=== PATIENT | female | born 1985 | race Caucasian/White ===

== ENCOUNTER 2021-10-29 08:58 | Emergency (ER) | payer BC, SELFPAY ==
[2021-10-29 09:33] VITALS: BP 99/62; PULSE 77; RESP 14; TEMP 36.2; O2SAT 98; BMI 27.9
--- NOTE | 2021-10-29 09:42 | PC.NURSE ---
DESTINY nurse paged
--- NOTE | 2021-10-29 11:06 | ED.NURSE ---
DESTINY nurse arrived and is in room w/ pt.
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
== END 2021-10-29 13:24 ==
PROVIDERS: Emergency Provider Family Medicine
DX: T74.21XA Adult sexual abuse, confirmed, initial encounter (principal)
CPT/HCPCS: 99281; 99284

== ENCOUNTER 2022-03-30 17:11 | Emergency (ER) | payer BC, SELFPAY ==
[2022-03-30 18:58] VITALS: BP 112/73; PULSE 87; RESP 18; TEMP 36.4; O2SAT 99; BMI 31.9
--- NOTE | 2022-03-30 19:54 | ED.BACK ---
HPI - Back Pain/Injury General Chief Complaint: Back Injury/Pain Stated Complaint: back pain Time Seen by Provider: 03/30/22 19:53 History of Present Illness HPI Narrative: This 36-year-old female comes in reporting low back pain radiating down both legs. She states that she has had a long history of back pain but the pain has become decided the worse recently. She does not report any particular injury event or strenuous activity. She has pain in her low back and this radiates down both legs. Related Data Previous Rx's Medication Instructions Recorded doxycycline hyclate 100 mg capsule 100 mg PO BID 10 days #20 caps 01/08/22 methylprednisolone 4 mg tablets in See Rx Instructions PO .COMPLEX 03/30/22 a dose pack (Medrol (Obed)) #21 ea tizanidine 4 mg capsule (Zanaflex) 4 mg PO TID PRN muscle spasticity 03/30/22 #20 caps Allergies Allergy/AdvReac Type Severity Reaction Status Date / Time No Known Drug Allergies Allergy Verified 03/30/22 19:03 Review of Systems Status of ROS: Reports: 10 or more systems reviewed and unremarkable except as noted in History and below Narrative: Constitutional: No fevers, no weight gain or loss. Eyes: No discharge. No vision changes. HENT: No congestion, no sore throat, no ear pain. Cardiovascular: No chest pain, no palpitations. Respiratory: No shortness of breath, no wheezes, no cough. Gastrointestinal: No abdominal pain, no vomiting, no diarrhea. Genitourinary: No dysuria, no hematuria. Musculoskeletal: Normal range of motion. Low back pain as described above. Skin: No rashes, no pruritis. Neurological: No dizziness, weakness, sensory change, speech change. Endo/Heme/Allergies: No bruising or bleeding. No polydipsia. Pysch: no suicidality, no anxiety, no insomnia. All other systems reviewed and are negative. PFSH PFSH Social History Smoking Status: Former smoker Do you use any of these nicotine containing products: None Second hand tobacco smoke exposure: No How often do you have a drink containing alcohol: monthly or less How many standard drinks containing alcohol do you have on a typical day: 1 or 2 How often do you have six or more drinks on one occasion: Never AUDIT-C Alcohol total score: 1 Non-prescribed substance use: denies use service: No Exam Narrative: Exam Narrative: Constitutional: Well-developed, well-nourished, no acute distress. HEENT: Normocephalic, atraumatic. Neck: Normal range of motion. Nontender. Supple. Heart: Intact distal pulses. Lungs: No chest discomfort. No wheezes, rhonchi, or rales. Abdomen: Nontender. Back: Normal range of motion. Pain is localized in the lower back. Straight leg raise is positive bilaterally. Extremities: Normal range of motion. No injury. Skin: Intact. No rash. Warm. No erythema or pallor. Neurologic: No altered sensation. No weakness. Alert and oriented. Psychiatric: No suicidality. No anxiety or depression. No insomnia. Nursing notes and vitals signs are reviewed. Const: Vital Signs, click to edit/add: Vital Signs - 24 hr 03/30/22 18:58 Temperature 97.5 F L Pulse Rate [Right Pulse Oximeter] 87 Respiratory Rate 18 Blood Pressure [Ri ght Upper Arm] 112/73 Pulse Oximetry 99 Oxygen Delivery Me thod Room Air Course Vital Signs Vital signs: Initial Vital Signs Temperature 97.5 F L 03/30/22 18:58 Temperature Source Temporal Artery Scan 03/30/22 18:58 Pulse Rate 87 03/30/22 18:58 Respiratory Rate 18 03/30/22 18:58 Blood Pressure 112/73 03/30/22 18:58 Blood Pressure Mean 86 03/30/22 18:58 Blood Pressure Position Sitting 03/30/22 18:58 Pulse Oximetry 99 03/30/22 18:58 Oxygen Delivery Method 03/30/22 18:58 Vital Signs Temperature 97.5 F L 03/30/22 18:58 Pulse Rate 87 03/30/22 18:58 Respiratory Rate 18 03/30/22 18:58 Blood Pressure 112/73 03/30/22 18:58 Pulse Oximetry 99 03/30/22 18:58 Oxygen Delivery Method 03/30/22 18:58 Temperature 97.5 F L 03/30/22 18:58 Pulse Rate 87 03/30/22 18:58 Respiratory Rate 18 03/30/22 18:58 Blood Pressure 112/73 03/30/22 18:58 Pulse Oximetry 99 03/30/22 18:58 Oxygen Delivery Method 03/30/22 18:58 MDM - Back Pain/Injury MDM Narrative Medical decision making narrative: This 36-year-old female comes in with low back pain that radiates down her legs. She does have positive straight leg raise bilaterally suggesting lumbar radiculopathy. There was no recent injury event or strenuous activity that indicate need at this time for imaging studies. If not improved she may need MRI imaging. She did received prescription for [place], Zanaflex, and Medrol Dosepak. I advised her to follow-up with the spine clinic here for further evaluation and treatment. Discharge Plan Discharge Clinical Impression: Lumbar radiculopathy Patient Disposition: Home, Self-Care Condition: Stable Additional Instructions: Take medications as needed and indicated. Follow up with Spine Clinic for further evaluation and treatment. Call [phone] for appointment. Return if worsening. Prescriptions: New methylprednisolone [Medrol (Obed)] 4 mg tablets,dose pack See Rx Instructions .ROUTE .COMPLEX Qty: 21 0RF Rx Instructions: orally per package directions tizanidine [Zanaflex] 4 mg capsule 4 mg PO TID PRN (Reason: muscle spasticity) Qty: 20 0RF No Action doxycycline hyclate 100 mg capsule 100 mg PO BID 10 Days Qty: 20 0RF Follow Up/Referrals: Provider,Not a Local [Primary Care Provider] - Stand Alone Forms: [facility] Info Instructions
== END 2022-03-30 20:14 | disposition home or self-care (01) ==
LOC: ED 20:13
PROVIDERS: Emergency Provider Emergency Medicine Emergency Medical Services
DX: M54.16 Radiculopathy, lumbar region (principal)
CPT/HCPCS: 99283; 99284

== ENCOUNTER 2023-02-12 22:21 | Emergency (ER) | payer BC, SELFPAY ==
[2023-02-12 22:34] VITALS: BP 142/80; PULSE 99; RESP 18; TEMP 37.3; O2SAT 98; BMI 37.0
--- NOTE | 2023-02-12 22:41 | ED.ABDPAIN ---
HPI - Abdominal Pain General Time Seen by Provider: 22:41 <Frances Be MD - Last Filed: 02/12/23 23:42> Date Seen: 02/12/23 <Frances Be MD - Last Filed: 02/12/23 23:42> Chief Complaint: Abdominal Pain <Frances Be MD - Last Filed: 02/12/23 23:42> Stated Complaint: Sharp Pain where her fallopian tube are - L Side <Frances Be MD - Last Filed: 02/12/23 23:42> Time Seen by Provider: 02/12/23 22:37 <Frances Be MD - Last Filed: 02/12/23 23:42> Source: patient and RN notes reviewed <Frances Be MD - Last Filed: 02/12/23 23:42> Mode of arrival: ambulatory <Frances Be MD - Last Filed: 02/12/23 23:42> Limitations: no limitations <Frances Be MD - Last Filed: 02/12/23 23:42> History of Present Illness HPI narrative: Patient is a 37-year-old female coming in with left lower abdominal pain. When her symptoms started originally, she thought maybe her back was going out again. She felt a little low back ache, felt like it was going into the groin and upper thigh. She awoke with this at about 630 yesterday morning. Preceding this she was having some mild urinary tract infection symptoms with urgency, frequency and some mild dysuria. She had that for few days but then it went away. She does think that she is probably still having some frequency symptoms. Those symptoms seemed to go away when she woke up with this left lower abdominal symptoms. Originally what she thought was maybe more her back seem to be developing more into left lower abdominal pain. She has had increased bowel movements but no diarrhea. She has a Mirena IUD which was placed in December 2017 in [place]. Her only abdominal surgery is prior C-sections. She has 6 children. She did have a fever earlier today at home of 100.1 orally. She has had history of ovarian cyst before as well. Diminished appetite for food today. No nausea or vomiting. No prior history of kidney infection or pyelonephritis that she is aware of. <Frances Be MD - Last Filed: 02/12/23 23:42> MD elicited complaint: abdominal pain <Frances Be MD - Last Filed: 02/12/23 23:42> Related Data Hx Last Menstrual Period: Has Mirena IUD <Frances Be MD - Last Filed: 02/12/23 23:42> Home Medications: Previous Rx's Medication Instructions Recorded doxycycline hyclate 100 mg capsule 100 mg PO BID 10 days #20 caps 01/08/22 methylprednisolone 4 mg tablets in See Rx Instructions PO .COMPLEX 03/30/22 a dose pack (Medrol (Obed)) #21 ea tizanidine 4 mg capsule (Zanaflex) 4 mg PO TID PRN muscle spasticity 03/30/22 #20 caps <Frances eB MD - Last Filed: 02/12/23 23:42> Allergies/Adverse Reactions: Allergies Allergy/AdvReac Type Severity Reaction Status Date / Time No Known Drug Allergies Allergy Verified 03/30/22 19:03 <Frances Be MD - Last Filed: 02/12/23 23:42> Review of Systems Status of ROS Reports: 6 or more systems reviewed and unremarkable except as noted in History and below <Frances Be MD - Last Filed: 02/12/23 23:42> PFSH PFS Social History: Social History Smoking Status: Former smoker Do you use any of these nicotine containing products: None Second hand tobacco smoke exposure: No How often do you have a drink containing alcohol: monthly or less How many standard drinks containing alcohol do you have on a typical day: 1 or 2 How often do you have six or more drinks on one occasion: Never AUDIT-C Alcohol total score: 1 Non-prescribed substance use: denies use service: No <Frances Be MD - Last Filed: 02/12/23 23:42> Exam Const: Vital Signs, click to edit/add: Vital Signs - 24 hr 02/12/23 22:34 Temperature 99.2 F Pulse Rate [Left P ulse Oximeter] 99 Respiratory Rate 18 Blood Pressure [Ri ght Upper Arm] 142/80 H Pulse Oximetry 98 Oxygen Delivery Me thod Room Air Celina is a very pleasant 37-year-old female that is alert, interactive, no apparent distress, ambulatory from the bathroom without any difficulty. Pupils equal round reactive, sclera clear, face symmetric, able to speak in complete sentences. Lungs clear without any wheezing crackles, CV regular rate and rhythm, no murmur, normal S1-S2, no S3-S4. Abdomen is soft, no rebound or guarding, localized tenderness along the suprapubic to left lower quadrant area. There is no inguinal adenopathy or masses, no tenderness. No palpable pain in the upper thigh. Again, patient was ambulatory in the ED without any difficulty. Bimanual exam reveals normal external genitalia, vaginal vault normal, no cervical motion tenderness. She is tender along the left lower quadrant on bimanual exam but body habitus is difficult to assess if there is any organomegaly or abnormality there. <Frances Be MD - Last Filed: 02/12/23 23:42> Vital Signs, click to edit/add: Vital Signs - 24 hr 02/12/23 22:34 Temperature 99.2 F Pulse Rate [Left P ulse Oximeter] 99 Respiratory Rate 18 Blood Pressure [Ri ght Upper Arm] 142/80 H Pulse Oximetry 98 Oxygen Delivery Me thod Room Air <Bala Saez MD - Last Filed: 02/13/23 00:41> Documenting provider has reviewed patient's vital signs: yes <Frances Be MD - Last Filed: 02/12/23 23:42> Course Course ED Course: Urinalysis has already been collected, have reviewed with patient that I do worry about maybe an ascending urinary infection given her UTI symptoms coupled with her fever today. Will get basic lab work. Urinalysis should be back rather quickly, will consider imaging based on laboratory evaluation. <Frances Be MD - Last Filed: 02/12/23 23:42> Reevaluation(s) Time of Reevaluation #1: 23:35 <Frances Be MD - Last Filed: 02/12/23 23:42> Reevaluation #1: Have reviewed with patient that her white blood count just mildly elevated, urinalysis is really not showing any definitive abnormality, certainly no infection, no significant hematuria. Urine test is negative. We will give her some Toradol for pain management. Will obtain pelvic ultrasound. Reviewed with patient that I will be leaving my ED shift shortly, will be signing her over to the night physician. <Frances Be MD - Last Filed: 02/12/23 23:42> Reevaluation #2: Sign-out received from Dr. Padron. Sounds come back negative. Labs reviewed. Patient is feeling reasonably well. Wheeled defer on CT scan for now. <Bala Saez MD - Last Filed: 02/13/23 00:41> Vital Signs Vital signs: Initial Vital Signs Temperature 99.2 F 02/12/23 22:34 Temperature Source Temporal Artery Scan 02/12/23 22:34 Pulse Rate 99 02/12/23 22:34 Pulse Rhythm Regular 02/12/23 22:34 Respiratory Rate 18 02/12/23 22:34 Blood Pressure 142/80 H 02/12/23 22:34 Blood Pressure Mean 100 02/12/23 22:34 Blood Pressure Position Sitting 02/12/23 22:34 Pulse Oximetry 98 02/12/23 22:34 Oxygen Delivery Method Room Air 02/12/23 22:34 Vital Signs Temperature 99.2 F 02/12/23 22:34 Pulse Rate 99 02/12/23 22:34 Respiratory Rate 18 02/12/23 22:34 Blood Pressure 142/80 H 02/12/23 22:34 Pulse Oximetry 98 02/12/23 22:34 Oxygen Delivery Method Room Air 02/12/23 22:34 Temperature 99.2 F 02/12/23 22:34 Pulse Rate 99 02/12/23 22:34 Respiratory Rate 18 02/12/23 22:34 Blood Pressure 142/80 H 02/12/23 22:34 Pulse Oximetry 98 02/12/23 22:34 Oxygen Delivery Method Room Air 02/12/23 22:34 <Frances Be MD - Last Filed: 02/12/23 23:42> Initial Vital Signs Temperature 99.2 F 02/12/23 22:34 Temperature Source Temporal Artery Scan 02/12/23 22:34 Pulse Rate 99 02/12/23 22:34 Pulse Rhythm Regular 02/12/23 22:34 Respiratory Rate 18 02/12/23 22:34 Blood Pressure 142/80 H 02/12/23 22:34 Blood Pressure Mean 100 02/12/23 22:34 Blood Pressure Position Sitting 02/12/23 22:34 Pulse Oximetry 98 02/12/23 22:34 Oxygen Delivery Method Room Air 02/12/23 22:34 Vital Signs Temperature 99.2 F 02/12/23 22:34 Pulse Rate 99 02/12/23 22:34 Respiratory Rate 18 02/12/23 22:34 Blood Pressure 142/80 H 02/12/23 22:34 Pulse Oximetry 98 02/12/23 22:34 Oxygen Delivery Method Room Air 02/12/23 22:34 Temperature 99.2 F 02/12/23 22:34 Pulse Rate 99 02/12/23 22:34 Respiratory Rate 18 02/12/23 22:34 Blood Pressure 142/80 H 02/12/23 22:34 Pulse Oximetry 98 02/12/23 22:34 Oxygen Delivery Method Room Air 02/12/23 22:34 <Bala Saez MD - Last Filed: 02/13/23 00:41> MDM - Abdominal Pain MDM Narrative Medical decision making narrative: Patient is 37-year-old woman with history of chronic low back pain who presents with left-sided back and abdominal pain. A laboratory evaluation and ultrasound are negative. She received Toradol in the emergency room. I do not see any reason to proceed with CT of the abdomen pelvis is my exam shows a soft abdomen. Labs are reassuring. Reassurance offered patient will follow-up with her primary physician as needed. <Bala Saez MD - Last Filed: 02/13/23 00:41> Medical Records Attestation: I reviewed the patient's medical records. <Bala Saez MD - Last Filed: 02/13/23 00:41> Lab Data Attestation: I reviewed the patient's lab results. <Frances Be MD - Last Filed: 02/12/23 23:42> Labs: Lab Results 02/12/23 02/12/23 Range/Units 22:42 23:15 WBC 11.19 H (4.50-11.00) K/uL RBC 4.69 (4.00-5.20) m/uL Hgb 13.9 (12.0-16.0) gm/dL Hct 41.9 (33.0-51.0) % MCV 89 (80-100) fL MCH 30 (26-34) pg MCHC 33 (32-36) gm/dL RDW Coeff of [place] 13.1 (11.5-15.5) % Plt Count 275 (140-440) K/uL Neut % (Auto) 62.7 (42.0-72.0) % Lymph % (Auto) 28.0 (20-44) % [place] % (Auto) 5.2 (0.0-11.0) % Eos % (Auto) 3.0 (0.0-7.0) % Baso % (Auto) 0.4 (0.0-3.0) % Neut # (Auto) 7.00 (1.7-7.0) K/uL Lymph # (Auto) 3.10 H (0.90-2.90) K/uL [place] # (Auto) 0.60 (0.00-0.90) K/UL Eos # (Auto) 0.30 (0.00-0.50) K/uL Baso # (Auto) 0.00 (0.00-0.30) K/uL Abs Immat Gran (auto) 0.10 (0.00-0.30) K/uL Imm/Tot Granulo (auto) 0.7 % Sodium 140 (135-149) mmol/L Potassium 4.2 (3.6-5.1) mmol/L Chloride 110 (96-114) mmol/L Carbon Dioxide 23 (20-32) mmol/L Anion Gap 7 (7-15) mEq/L BUN 7 (5-24) mg/dL Creatinine 0.5 (0.5-1.5) mg/dL Estimated Creat Clear 126.20 Estimated GFR 123 ml/min Glucose 88 (60-115) mg/dL Lactate 0.6 (0.5-1.9) mmol/L Calcium 9.2 (8.4-10.6) mg/dL C-Reactive Protein < 0.5 L (0.5-1.0) mg/dL Urine Color Yellow (Yellow) Urine Appearance Clear (Clear) Urine pH 8.5 (5.0-8.5) Ur Specific [place] 1.020 (1.000-1.030) Urine Protein Negative (Negative) Urine Glucose (UA) Negative (Negative) Urine Ketones Negative (Negative) Urine Blood Trace-intact A (Negative) Urine Nitrite Negative (Negative) Urine Bilirubin Negative (Negative) Urine Urobilinogen 0.2 (0.2-1.0) Ur Leukocyte Esterase Negative (Negative) Urine RBC 0-2 (0-2) Urine WBC 0-2 (0-5) Ur Squamous Epith Cells Few (None-Few) Urine Bacteria Few A (None) Urine HCG, Qual Negative (Negative) <Frances Be MD - Last Filed: 02/12/23 23:42> Lab Results 02/12/23 02/12/23 Range/Units 22:42 23:15 WBC 11.19 H (4.50-11.00) K/uL RBC 4.69 (4.00-5.20) m/uL Hgb 13.9 (12.0-16.0) gm/dL Hct 41.9 (33.0-51.0) % MCV 89 (80-100) fL MCH 30 (26-34) pg MCHC 33 (32-36) gm/dL RDW Coeff of [place] 13.1 (11.5-15.5) % Plt Count 275 (140-440) K/uL Neut % (Auto) 62.7 (42.0-72.0) % Lymph % (Auto) 28.0 (20-44) % [place] % (Auto) 5.2 (0.0-11.0) % Eos % (Auto) 3.0 (0.0-7.0) % Baso % (Auto) 0.4 (0.0-3.0) % Neut # (Auto) 7.00 (1.7-7.0) K/uL Lymph # (Auto) 3.10 H (0.90-2.90) K/uL [place] # (Auto) 0.60 (0.00-0.90) K/UL Eos # (Auto) 0.30 (0.00-0.50) K/uL Baso # (Auto) 0.00 (0.00-0.30) K/uL Abs Immat Gran (auto) 0.10 (0.00-0.30) K/uL Imm/Tot Granulo (auto) 0.7 % Sodium 140 (135-149) mmol/L Potassium 4.2 (3.6-5.1) mmol/L Chloride 110 (96-114) mmol/L Carbon Dioxide 23 (20-32) mmol/L Anion Gap 7 (7-15) mEq/L BUN 7 (5-24) mg/dL Creatinine 0.5 (0.5-1.5) mg/dL Estimated Creat Clear 126.20 Estimated GFR 123 ml/min Glucose 88 (60-115) mg/dL Lactate 0.6 (0.5-1.9) mmol/L Calcium 9.2 (8.4-10.6) mg/dL C-Reactive Protein < 0.5 L (0.5-1.0) mg/dL Urine Color Yellow (Yellow) Urine Appearance Clear (Clear) Urine pH 8.5 (5.0-8.5) Ur Specific [place] 1.020 (1.000-1.030) Urine Protein Negative (Negative) Urine Glucose (UA) Negative (Negative) Urine Ketones Negative (Negative) Urine Blood Trace-intact A (Negative) Urine Nitrite Negative (Negative) Urine Bilirubin Negative (Negative) Urine Urobilinogen 0.2 (0.2-1.0) Ur Leukocyte Esterase Negative (Negative) Urine RBC 0-2 (0-2) Urine WBC 0-2 (0-5) Ur Squamous Epith Cells Few (None-Few) Urine Bacteria Few A (None) Urine HCG, Qual Negative (Negative) <Bala Saez MD - Last Filed: 02/13/23 00:41> Discharge Plan Discharge Clinical Impression: Abdominal pain <Frances Be MD - Last Filed: 02/12/23 23:42> Patient Disposition: Home, Self-Care <Frances Be MD - Last Filed: 02/12/23 23:42> Condition: Stable <Frances Be MD - Last Filed: 02/12/23 23:42> Instructions: Abdominal Pain (ED) <Frances Be MD - Last Filed: 02/12/23 23:42> Additional Instructions: Tylenol Motrin Rest Fluids <Frances Be MD - Last Filed: 02/12/23 23:42> Activity Level: No Restrictions <Frances Be MD - Last Filed: 02/12/23 23:42> No Restrictions <Bala Saez MD - Last Filed: 02/13/23 00:41> Discharge Diet: Regular <Frances Be MD - Last Filed: 02/12/23 23:42> Regular <Bala Saez MD - Last Filed: 02/13/23 00:41> Prescriptions: No Action methylprednisolone [Medrol (Obed)] 4 mg tablets,dose pack See Rx Instructions .ROUTE .COMPLEX Qty: 21 0RF Rx Instructions: orally per package directions tizanidine [Zanaflex] 4 mg capsule 4 mg PO TID PRN (Reason: muscle spasticity) Qty: 20 0RF doxycycline hyclate 100 mg capsule 100 mg PO BID 10 Days Qty: 20 0RF <Frances Be MD - Last Filed: 02/12/23 23:42> Follow Up/Referrals: Provider,Not a Local [Primary Care Provider] - <Frances Be MD - Last Filed: 02/12/23 23:42> Stand Alone Forms: MyHealth Info Instructions <Frances Be MD - Last Filed: 02/12/23 23:42>
[2023-02-12 22:56] LABS: Appearance Urine Clear (Clear); Bilirubin Urine Negative (Negative); Blood Urine Trace-intact (Negative); Color Urine Yellow (Yellow); Glucose Urine Negative (Negative); Ketones Urine Negative (Negative); Leukocyte Esterase Urine Negative (Negative); Nitrite Urine Negative (Negative); Protein Urine Negative (Negative); Urobilinogen Urine 0.2 (0.2-1.0); pH Urine 8.5 (5.0-8.5)
[2023-02-12 23:04] LABS: Bacteria Urine Few; RBC Urine 0-2 (0-2); Squamous Epithelial Cell Urine Few (None-Few); WBC Urine 0-2 (0-5)
[2023-02-12 23:18] LABS: Ur HCG Qualitative* Negative (Negative)
[2023-02-12 23:19] LABS: Lactate* 0.6 mmol/L (0.5-1.9)
[2023-02-12 23:20] LABS: Basophils Percent Auto 0.4 % (0.0-3.0); Hematocrit 41.9 % (33.0-51.0); Hemoglobin* 13.9 gm/dL (12.0-16.0); Immature Granulocytes Pct Auto 0.7 %; Mean Corpuscular HGB Conc 33 gm/dL (32-36); Mean Corpuscular Hemoglobin 30 pg (26-34); Mean Corpuscular Volume 89 fL (80-100); Monocytes Percent Auto 5.2 % (0.0-11.0); Neutrophils Percent Auto 62.7 % (42.0-72.0); Platelet Count* 275 K/uL (140-440); RDW Coefficient of Variation % 13.1 % (11.5-15.5); Red Blood Count 4.69 m/uL (4.00-5.20); White Blood Count* 11.19 K/uL (4.50-11.00)
[2023-02-12 23:21] LABS: Slide Review Reflex No
[2023-02-12 23:34] LABS: Chloride* 110 mmol/L (96-114)
[2023-02-12 23:35] LABS: Potassium* 4.2 mmol/L (3.6-5.1); Sodium* 140 mmol/L (135-149)
[2023-02-12 23:37] LABS: Creatinine* 0.5 mg/dL (0.5-1.5); Estimated Glomerular Filt Rate 123 ml/min
[2023-02-12 23:38] LABS: Anion Gap 7 mEq/L (7-15); Blood Urea Nitrogen* 7 mg/dL (5-24); Carbon Dioxide* 23 mmol/L (20-32); Glucose* 88 mg/dL (60-115)
[2023-02-12 23:39] LABS: Calcium* 9.2 mg/dL (8.4-10.6)
[2023-02-12] MEDS: KETOROLAC 15 MG/ML inj IVP (23:49)
[2023-02-12 23:50] LABS: C Reactive Protein* < 0.5 mg/dL (0.5-1.0)
[2023-02-13 00:48] VITALS: BP 138/62; PULSE 72; RESP 18; O2SAT 99
--- NOTE | 2023-02-13 23:36 | CRLHL7_ITS ---
For Patients: As a result of the Century Cures Act, medical imaging exams and procedure reports are released immediately into your electronic medical record. You may view this report before your referring provider. If you have questions, please contact your health care provider. INDICATION: Pelvic pain. TECHNIQUE: Transvaginal pelvic ultrasound examination was before. Real-time sonographic images with spectral and color Doppler imaging of the ovaries were obtained. COMPARISON: Pelvic ultrasound 04/02/2017. FINDINGS: Uterus: 10.3 x 5.4 x 6.1 cm. Normal echotexture of the myometrium. No masses. Endometrium: Transvaginal imaging was performed to better evaluate the endometrium. Endometrial thickness measures 5 mm. No sign of endometrial mass or fluid. Intrauterine device in place, unremarkable. Right ovary 3.8 x 2.1 x 2.4 cm. Left ovary 3.8 x 2.0 x 2.3 cm. No ovarian or adnexal masses. Normal arterial and venous blood flow is demonstrated in both ovaries. Cul-de-sac: No significant free fluid. IMPRESSION: Unremarkable transvaginal pelvic ultrasound. Dictated by Fernando Borges MD @ 02/13/2023 12:48:30 AM (Electronically Signed)
== END 2023-02-13 00:52 | disposition home or self-care (01) ==
PROVIDERS: Emergency Provider Family Medicine
DX: R10.9 Unspecified abdominal pain (principal)
CPT/HCPCS: 36415; 76830; 80048; 81001; 81025; 83605; 85025; 86140; 87086; 93976; 96374; 99283; 99284; J1885

== ENCOUNTER 2023-08-14 17:12 | Emergency (ER) | payer OTHER, SELFPAY ==
[2023-08-14 17:24] VITALS: BP 120/68; PULSE 91; RESP 16; TEMP 36.8; O2SAT 97; BMI 37.9
--- NOTE | 2023-08-14 17:38 | ED.WOUNDLAC ---
HPI - Wound/Laceration General Time Seen by Provider: 17:38 Date Seen: 08/14/23 Chief Complaint: Laceration/Wound Stated Complaint: laceration on left hand Time Seen by Provider: 08/14/23 17:30 Source: patient and RN notes reviewed Mode of arrival: ambulatory Limitations: no limitations History of Present Illness HPI narrative: This 37-year-old female is coming in with laceration to her left hand. She was cleaning up the yd, shoving garbage into the trash. She the cut this on a piece of metal or broken plastic toy. She had quite a bit of bleeding. Denies any numbness tingling. Her tetanus was with her last , her son is 5 years old, likely about [address]: home Patient tetanus UTD: Yes Context: accidental Related Data Home Medications Medication Instructions Recorded Confirmed No Known Home Medications 08/14/23 08/14/23 Allergies Allergy/AdvReac Type Severity Reaction Status Date / Time No Known Drug Allergies Allergy Verified 03/30/22 19:03 Review of Systems Narrative: As per HPI. PFSH PFSH Social History Smoking Status: Former smoker Do you use any of these nicotine containing products: None Second hand tobacco smoke exposure: No How often do you have a drink containing alcohol: monthly or less How many standard drinks containing alcohol do you have on a typical day: 1 or 2 How often do you have six or more drinks on one occasion: Never AUDIT-C Alcohol total score: 1 Non-prescribed substance use: denies use service: No Exam Const: Vital Signs, click to edit/add: Vital Signs - 24 hr 08/14/23 17:24 Temperature 98.2 F Pulse Rate [Pulse Oximeter] 91 Respiratory Rate 16 Blood Pressure [Ri ght Upper Arm] 120/68 Pulse Oximetry 97 Oxygen Delivery Me thod Room Air This 37-year-old female is ambulatory into the ED of her own accord, she is alert, interactive, no apparent distress. She has about a 1.5 cm laceration obliquely associated overlying the medial hand about mid shaft along the 5th metatarsal area. It is just through the epidermis into the dermis. No active bleeding at this time. Nursing staff had already cleaned the wound. She has full flexion extension of the fingers of the hand, normal distal sensation past the wound. Documenting provider has reviewed patient's vital signs: yes Course Course ED Course: Wound is already cleaned. Patient is aware that we are going to proceed with anesthesia with lidocaine and then wound closure with stitches. She agrees. Vital Signs Vital signs: Initial Vital Signs Temperature 98.2 F 08/14/23 17:24 Temperature Source Temporal Artery Scan 08/14/23 17:24 Pulse Rate 91 08/14/23 17:24 Respiratory Rate 16 08/14/23 17:24 Blood Pressure 120/68 08/14/23 17:24 Blood Pressure Mean 85 08/14/23 17:24 Blood Pressure Position Sitting 08/14/23 17:24 Pulse Oximetry 97 08/14/23 17:24 Oxygen Delivery Method Room Air 08/14/23 17:24 Vital Signs Temperature 98.2 F 08/14/23 17:24 Pulse Rate 91 08/14/23 17:24 Respiratory Rate 16 08/14/23 17:24 Blood Pressure 120/68 08/14/23 17:24 Pulse Oximetry 97 08/14/23 17:24 Oxygen Delivery Method Room Air 08/14/23 17:24 Temperature 98.2 F 08/14/23 17:24 Pulse Rate 91 08/14/23 17:24 Respiratory Rate 16 08/14/23 17:24 Blood Pressure 120/68 08/14/23 17:24 Pulse Oximetry 97 08/14/23 17:24 Oxygen Delivery Method Room Air 08/14/23 17:24 Discharge Plan Discharge Clinical Impression: Laceration of left hand Qualifiers: Encounter type: initial encounter Foreign body presence: without foreign body Qualified Code(s): S61.412A - Laceration without foreign body of left hand, initial encounter Patient Disposition: Home, Self-Care Condition: Stable Instructions: Care For Your Stitches (ED), Laceration (ED) Additional Instructions: Use bacitracin and bandages to keep this wound clean and dry. May wash hands but should not submerge your hands to do dishes until the sutures are out. May shower as usual. Need to schedule a clinic followup on August 19 or to assess the wound for suture removal. If there is concern for infection, please seek re-evaluation, signs and symptoms of infection outlined in patient Education sent. Prescriptions: No Action No Known Home Medications Follow Up/Referrals: Provider,Not a Local [Primary Care Provider] - Stand Alone Forms: [facility] Info Instructions Procedures Laceration Laceration 1: Pre procedure diagnosis: Left hand laceration Post procedure diagnosis: Same Name of person performing procedure: Frances Be Site: hand Side (If applicable): left Size (cm): 1.5 Description: linear Depth: simple, single layer Local Anesthetic: lidocaine 1% Amount of anesthesia used (mL): 5 (5 mL drawn up, 4 mL infiltrated for anesthesia) Pre-repair: wound explored, irrigated extensively and deep structures intact Skin layer closed with: other (Ethilon) Size (cm): 4-0 Number of sutures: 5 Wound cleansing: soap Estimated blood loss (if any): less than 5mls Conclusion: patient tolerated procedure
[2023-08-14] MEDS: BACITRACIN 0.9 GM PACKET 1 EACH TOPICAL (18:25)
[2023-08-14] MEDS: LIDOCAINE 1% MDV 5 ML INJECTION (18:25)
== END 2023-08-14 18:48 | disposition home or self-care (01) ==
PROVIDERS: Emergency Provider Family Medicine
DX: S61.412A Laceration without foreign body of left hand, initial encounter (principal); W26.9XXA Contact with unspecified sharp object(s), initial encounter
CPT/HCPCS: 12001; 99283; A9270

== ENCOUNTER 2023-09-13 08:43 | Emergency (ER) | payer BC, SELFPAY ==
[2023-09-13 08:46] VITALS: BP 131/69; PULSE 86; RESP 16; TEMP 37.2; O2SAT 100; BMI 38.3
--- NOTE | 2023-09-13 09:17 | XR_ITS ---
Patient: MARIA ELENA TAYLOR Facility:?[facility] Patient ID:?[id number] Site Patient ID:?[id number] Site :?[id number] Study:?XRay-Extremity Left 3RD DIGIT-09/13/2023 9:36:48 AM Ordering Physician:JOVANNY Final Report: INDICATION: Injury, finger slammed in door COMPARISON: None. TECHNIQUE: Three views left middle finger FINDINGS: No fracture. Normal alignment. Joint spaces are normal. No focal bone lesions. Normal bone mineralization. Soft tissues are normal. No foreign body. IMPRESSION: Normal left middle finger radiographs. Dictated by Ashlie Brooks MD @ 09/13/2023 10:01:39 AM Signed by:?Ashlie Brooks MD @09/13/2023 10:01:39 AM (Electronic Signature)
--- NOTE | 2023-09-13 09:17 | ED.UPPEXIN ---
HPI - Extremity Injury (Upper) General Chief Complaint: Extremity Pain/Injury, Upper Stated Complaint: left middle finger pain Time Seen by Provider: 09/13/23 08:45 History of Present Illness HPI narrative: This 37-year-old female comes in with an injury to her left middle finger that occurred about a week ago. She jammed it somehow and comes in today because she thought it would be better by now. She has some mild swelling and tenderness in the PIP and D IP area of her left middle finger. Her range of motion is mildly decreased due to pain and mild swelling. She does not report any other injury. Related Data Home Medications Medication Instructions Recorded Confirmed No Known Home Medications 08/14/23 09/13/23 Allergies Allergy/AdvReac Type Severity Reaction Status Date / Time No Known Drug Allergies Allergy Verified 09/13/23 08:51 Review of Systems Status of ROS: Reports: 10 or more systems reviewed and unremarkable except as noted in History and below Narrative: Constitutional: No fevers, no weight gain or loss. Eyes: No discharge. No vision changes. HENT: No congestion, no sore throat, no ear pain. Cardiovascular: No chest pain, no palpitations. Respiratory: No shortness of breath, no wheezes, no cough. Gastrointestinal: No abdominal pain, no vomiting, no diarrhea. Genitourinary: No dysuria, no hematuria. Musculoskeletal: Left middle finger injury as described above. Skin: No rashes, no pruritis. Neurological: No dizziness, weakness, sensory change, speech change. Endo/Heme/Allergies: No bruising or bleeding. No polydipsia. Pysch: no suicidality, no anxiety, no insomnia. All other systems reviewed and are negative. [facility] Social History Smoking Status: Former smoker Do you use any of these nicotine containing products: None Second hand tobacco smoke exposure: No How often do you have a drink containing alcohol: monthly or less How many standard drinks containing alcohol do you have on a typical day: 1 or 2 How often do you have six or more drinks on one occasion: Never AUDIT-C Alcohol total score: 1 Non-prescribed substance use: denies use service: No Exam Narrative: Exam Narrative: Constitutional: Well-developed, well-nourished, no acute distress. HEENT: Normocephalic, atraumatic. Neck: Normal range of motion. Nontender. Supple. Heart: Intact distal pulses. Lungs: No chest discomfort. No wheezes, rhonchi, or rales. Abdomen: Nontender. Back: Normal range of motion. Extremities: Mild swelling of the left middle finger with no particular point tenderness and no sign of deformity. Range of motion is slightly reduced due to pain and mild swelling. Skin: Intact. No rash. Warm. No erythema or pallor. Neurologic: No altered sensation. No weakness. Alert and oriented. Psychiatric: No suicidality. No anxiety or depression. No insomnia. Nursing notes and vitals signs are reviewed. Const: Vital Signs, click to edit/add: Vital Signs - 24 hr 09/13/23 08:46 Temperature 98.9 F Pulse Rate [Pulse Oximeter] 86 Respiratory Rate 16 Blood Pressure [Ri t Upper Arm] 131/69 Pulse Oximetry 100 Oxygen Delivery Me thod Room Air Course Vital Signs Vital signs: Initial Vital Signs Temperature 98.9 F 09/13/23 08:46 Temperature Source Temporal Artery Scan 09/13/23 08:46 Pulse Rate 86 09/13/23 08:46 Respiratory Rate 16 09/13/23 08:46 Blood Pressure 131/69 09/13/23 08:46 Blood Pressure Mean 89 09/13/23 08:46 Blood Pressure Position Sitting 09/13/23 08:46 Pulse Oximetry 100 09/13/23 08:46 Oxygen Delivery Method Room Air 09/13/23 08:46 Vital Signs Temperature 98.9 F 09/13/23 08:46 Pulse Rate 86 09/13/23 08:46 Respiratory Rate 16 09/13/23 08:46 Blood Pressure 131/69 09/13/23 08:46 Pulse Oximetry 100 09/13/23 08:46 Oxygen Delivery Method Room Air 09/13/23 08:46 Temperature 98.9 F 09/13/23 08:46 Pulse Rate 86 09/13/23 08:46 Respiratory Rate 16 09/13/23 08:46 Blood Pressure 131/69 09/13/23 08:46 Pulse Oximetry 100 09/13/23 08:46 Oxygen Delivery Method Room Air 09/13/23 08:46 MDM - Extremity Injury (Upper) MDM Narrative Medical decision making narrative: This patient comes in with persistent pain in her left middle finger because of an injury that occurred about a week ago. 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 An x-ray is obtained and does not show any sign of fracture or dislocation by my review. Radiology report is pending. The patient received finger splint but is encouraged to resume activity as tolerated and wear the splint only when needed for extra protection. Discharge Plan Discharge Clinical Impression: Finger injury Patient Disposition: Home, Self-Care Condition: Stable Additional Instructions: Wear splint as needed. Use [id number] medicines also as needed and directed. Increase activity as tolerated. Follow up with MD return if worsening. Prescriptions: No Action No Known Home Medications Follow Up/Referrals: Provider,Not a Local [Primary Care Provider] - Stand Alone Forms: [employer] Info Instructions
== END 2023-09-13 09:58 | disposition home or self-care (01) ==
PROVIDERS: Emergency Provider Emergency Medicine Emergency Medical Services
DX: S60.032A Contusion of left middle finger without damage to nail, initial encounter (principal); W23.0XXA Caught, crushed, jammed, or pinched between moving objects, initial encounter
CPT/HCPCS: 29130; 73140; 99283; 99284

== ENCOUNTER 2024-04-17 11:32 | Emergency (ER) | payer OTHER, SELFPAY ==
[2024-04-17 11:39] VITALS: BP 134/80; PULSE 71; RESP 18; TEMP 36.5; O2SAT 97; BMI 39.0
--- NOTE | 2024-04-17 12:07 | ED.GENADULT ---
HPI - General Adult General Date Seen: 04/17/24 Chief complaint: Unspecified Complaint, Adult Stated complaint: tooth pain Time Seen by Provider: 04/17/24 11:37 Source: patient Mode of arrival: ambulatory Limitations: no limitations History of Present Illness HPI narrative: Patient is a 38-year-old female presenting for right-sided upper tooth pain. She states she has had poor dentition for the past year this tooth has been bothering her for that same time frame. States over the past week has gotten acutely worsens states the pain is starting to come on tolerable despite taking ibuprofen. She has not been on any recent antibiotics. She has been working to set up insurance through the [facility] so she can see a dentist. Denies fevers, chills, shortness of breath, difficulty swallowing. No other concerns noted Related Data Previous Rx's ?Medication ?Instructions ?Recorded amoxicillin 500 mg capsule 500 mg PO TID #15 caps 04/17/24 Allergies Allergy/AdvReac Type Severity Reaction Status Date / Time No Known Drug Allergies Allergy Verified 04/17/24 11:45 Review of Systems Narrative: Pertinent systems reviewed and were negative unless stated in HPI PFSH PFSH Social History Smoking Status: Former smoker Do you use any of these nicotine containing products: None Second hand tobacco smoke exposure: No How often do you have a drink containing alcohol: monthly or less How many standard drinks containing alcohol do you have on a typical day: 1 or 2 How often do you have six or more drinks on one occasion: Never AUDIT-C Alcohol total score: 1 Non-prescribed substance use: denies use service: No Exam Narrative: Exam Narrative: Const: Well-nourished, Well-developed, in mild distress Eyes: PERRL, no conjunctival injection, and symmetrical lids HENT: Atraumatic external nose and ears. Moist mucous membranes. Poor dentition noted with large cavity and partial tooth missing at toooth 5 and large cavity on her right upper molar MSK:Extremities w/o deformity, Normal Active ROM Skin: Warm, Dry. No rashes or lesions. Neuro: Normal Muscle tone, No focal neurological deficits. Psych: Awake, Alert, & Oriented x3. Appropriate mood and affect. Const: Vital Signs, click to edit/add: Vital Signs - 24 hr 04/17/24 11:39 Temperature 97.7 F Pulse Rate [Pulse Oximeter] 71 Respiratory Rate 18 Blood Pressure [Ri ght Upper Arm] 134/80 Pulse Oximetry 97 Oxygen Delivery Me thod Room Air Course Vital Signs Vital signs: Initial Vital Signs Temperature 97.7 F 04/17/24 11:39 Temperature Source Temporal Artery Scan 04/17/24 11:39 Pulse Rate 71 04/17/24 11:39 Respiratory Rate 18 04/17/24 11:39 Blood Pressure 134/80 04/17/24 11:39 Blood Pressure Mean 98 04/17/24 11:39 Blood Pressure Position Sitting 04/17/24 11:39 Pulse Oximetry 97 04/17/24 11:39 Oxygen Delivery Method Room Air 04/17/24 11:39 Vital Signs Temperature 97.7 F 04/17/24 11:39 Pulse Rate 71 04/17/24 11:39 Respiratory Rate 18 04/17/24 11:39 Blood Pressure 134/80 04/17/24 11:39 Pulse Oximetry 97 04/17/24 11:39 Oxygen Delivery Method Room Air 04/17/24 11:39 Temperature 97.7 F 04/17/24 11:39 Pulse Rate 71 04/17/24 11:39 Respiratory Rate 18 04/17/24 11:39 Blood Pressure 134/80 04/17/24 11:39 Pulse Oximetry 97 04/17/24 11:39 Oxygen Delivery Method Room Air 04/17/24 11:39 Medical Decision Making MDM Narrative Medical decision making narrative: Patient is a 38-year-old female presenting for dental pain. No signs of other infection. There is some redness and tenderness noted around tooth 5. At this time I do think is reasonable to place her on antibiotics for possible infection. She is agreeable to this plan. Discharge Plan Discharge Clinical Impression: Pain, dental Patient Disposition: Home, Self-Care Condition: Stable Instructions: Toothache (ED) Additional Instructions: Continue to take Tylenol and ibuprofen at home for pain. Take the antibiotic as directed. Return for new or worsening symptoms Prescriptions: New amoxicillin 500 mg capsule 500 mg PO TID Qty: 15 0RF Follow Up/Referrals: Provider,Not a Local [Primary Care Provider] - Stand Alone Forms: [employer] Info Instructions
== END 2024-04-17 12:20 | disposition home or self-care (01) ==
LOC: ED 12:13
PROVIDERS: Emergency Provider Student in an Organized Health Care Education/Training Program
DX: K08.89 Other specified disorders of teeth and supporting structures (principal)
CPT/HCPCS: 99283

== ENCOUNTER 2024-07-11 16:54 | Emergency (ER) | payer OTHER, SELFPAY ==
--- OUTSIDE RECORDS SUMMARY | 2024-07-11 16:56 | XMS_ITS | Clinical Summary ---
Author Organization [employer] Address [address] [place] [address] Care Team Providers Care Griddle Cook Name Role Phone Catherine Liang MD Unavailable [phone] Pcp, No Primary Care Provider Unavailabl e Allergies No known active allergies Medications acetaminophen (TYLENOL) 500 mg capsule Take 2 capsules by mouth every 6 hours if needed. Max acetaminophen dose: 4000mg in 24 hrs. 0 04/05/20 17 Active levonorgestrel intrauterine device (MIRENA) 20 mcg/24 hr (5 years) IUD Inject 1 Device intrauterine one time for 1 dose. 1 Device 04/19/20 18 Active ibuprofen (ADVIL; MOTRIN) 800 mg tabletIndication s:Tooth ache Take 1 tablet by mouth 3 times daily if needed. 30 tablet 09/15/19 19 Active cetirizine (ZYRTEC) 10 mg tablet Take 10 mg by mouth once daily. Active naloxone 4 mg/actuation spryIndications: Chronic, continuous use of opioids Inhale in the nostril(s). 1 spray (4 mg) intranasally into 1 nostril. Administer into alternating nostrils. May repeat every 2 to 3 minutes. 1 Each 1 04/24/20 19 Active gabapentin (NEURONTIN) 300 mg capsuleIndicatio ns:Chronic midline thoracic back pain,Chronic pain syndrome,Chronic neck pain,Chronic right shoulder pain Take 1 capsule by mouth 3 times daily. 90 capsule 1 12/15/19 20 Active cloNIDine HCL (CATAPRES) 0.1 mg tabletIndication s:Opioid withdrawal (HC) Take 1 tablet by mouth 3 times daily if needed (withdrawal sxs). 12 tablet 02/11/20 20 Active hydrOXYzine HCL (ATARAX) 25 mg tabletIndication s:Opioid withdrawal (HC) Take 1-2 tablets by mouth every 6 hours if needed (opioid withdrawal). 60 tablet 02/11/20 20 Active baclofen (LIORESAL) 10 mg tabletIndication s:Bilateral contusion of ribs Take 1 Tablet (10 mg) by mouth 3 times daily if needed (rib pain). 45 Tablet 11/17/19 24 Active lidocaine 5 % topical patchIndications :Bilateral contusion of ribs Apply to intact skin to cover most painful area for max 12hr per 24hr period. 15 Patch 11/17/19 24 Active Active Problems Problem Noted Date Diagnosed Date Controlled substance agreement broken 02/15/2020 Mid back pain 08/30/2018 Chronic right shoulder pain 01/18/2018 Chronic neck pain 01/18/2018 Morbid obesity with BMI of 40.0-44.9, adult 08/2017 Tobacco use disorder 10/08/2016 Seizure disorder 08/31/2008 Overview (09/05/2017): Overview: No seizures or meds for 5 years. Esophageal reflux ASCUS with positive high risk HPV cervical Overview (11/07/2015): Plan: Pap/HPV due 10/2018 Resolved Problems Problem Noted Date Diagnosed Date Resolved Date Controlled substance agreement signed 01/29/2020 02/15/2020 Controlled substance agreement signed 2017 02/15/2020 Overview (07/01/2018): Updated at [facility] 10/21/17 Primary LST deliver y, macrosomia, polyhydramnios 09/05/2017 11/01/2017 Habitual aborter, currently in third trimester 09/04/2017 11/01/2017 suspected macrosomia, Polyhydramnios delivered 09/04/2017 11/01/2017 Overview (09/05/2017): increased risk cord prolapse, and shoulder dystocia Maternal morbid obesity, antepartum, BMI 40 09/04/2017 11/01/2017 -induced glucose intolerance 09/04/2017 11/01/2017 Overview (09/05/2017): high one glucoses x 2, possible late onset GDM Supervision of high-risk 07/09/2017 11/01/2017 Overview (09/02/2017): [facility] TESTING ONLY Tabby NEXT VISIT ALERTS: polyhydramnios-Had amnio reduction 08/11/17 in [facility] with Dr Syed 08/11/17 Microarray sent 09/02 -- PRIMARY OB CALLED WITH EFW OF 4700g. Patient considering elective primary CS. She will come to [place] as planned for IOL on 09/04 but will be NPO, will automobile travel club counselor patient at that time and make final mode of delivery decision. Anesthesia and viscose cellar charge hand notified by John Roche 09/02 FUTURE APPOINTMENTS: Needs more [facility]PP appts Testing through 08/27at [facility]. Has weekly BPP/NST with Dr. You through 09/13/17 but states she isn't going to have them there. Growth: Last 07/30-no future growth needed per Dr Wagner PRIMARY DIAGNOSIS: 31 y.o. Estimated Date of Delivery: 09/11/17 Polyhydramnios 08/03/17 AFV= 42cm, EFW 97% Low risk quad screen BMI 32 LAST GROWTH: None needed 07/30/17 33w6d EFW 2942 grams percentile >97% 06/25/17 28w6d EFW 1722 grams, >97% TESTING PLANS: weekly bpp/nst per Dr. You REFERRING PHYSICIAN/PHONE/LAST UPDATE: Dr. Vinh You [phone] Primary MD approves scheduling of recommended ultrasounds/testing: yes SPECIALISTS/PHONE: Neurology consult ordered due to questionable seizure [place]: CARE COORDINATION: PERTINENT LABS: PERTINENT MEDS: 07/27/17 & 07/28/17 Betamethasone given MD PLAN OF CARE: CHECKLIST FOR SCHEDULING PROCEDURES: Call [phone] for [place] and [phone] for [employer] (UTD cerclages Day Surgery [id number]) Procedure: Induction Hospital: [facility] Unit: L&D Date & Time of procedure: Wednesday, September 04, 2017 0700 Brown Score if induction: TBD at closer date Pertinent information: polyhydramnios and macrosomia Gestational age on procedure date? 39w0d MD doing procedure: [facility] MM Date scheduled: 08/27/2017 when patient was 37w6d. Scheduling MD & RN: [place] and [place] Notifications: Hospitalist Delivery-[facility] circulation manager notified through [employer] inbox? Yes [facility] MD circulation manager notified via [employer] inbox? Yes Primary MD notified via [employer] inbox? Yes Primary MD clinic called if not Manisha? Not Applicable On [facility] calendar? Yes Care Coordination notified? Not Applicable H&P/PPTL: PPTL permit signed? Not Applicable H&P and Plan in chart? Not Applicable [facility] appointment made for H&P with CYLINDER DYER within 7 days of surgical procedure? Not Applicable Patient notification: Patient notified of procedure date? Yes Written admission instructions given to patient via AVS? Yes Upper back strain 01/28/2016 03/30/2017 Strain of neck 01/28/2016 03/30/2017 Strain of mid-back 01/28/2016 7 Strain of right wrist 12/18/20142016 Strain of neck 12/18/2014 03/30/2017 Strain of mid-back 08/14/2014 7 Upper back strain 08/14/2014 03/30/2017 Normal vaginal delivery 11/13/201203/04 Overview (11/13/2012): SROM and spontaneous labor at 40w6d. Required pitocin augmentation. Prolonged decels with , required small episiotomy. 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 Per consultation with [facility] 07/12/2012: very small risk of genetic syndromes associated with dolicocephaly, however it is most likely a normal variant without clinical significance. At the conclusion of our consultation the patient declined any further testing. Prior Pregnancies: 1. Oswald 09/11/2003 - Normal , born at term, needed pitocin augmentation. Had an epidural. 8lbs 10oz. Had an episiotomy 2. Kate 07/07/2006 - normal , born at term, induced at term for advanced dilation. Had an epidural. 7lbs 5oz. No tears or stitches. 3. Heike 12/17/2009 - Normal . Induced at 41 1/2 weeks for post-dates. Had an epidural. 8lbs 3oz. No tearing 4. Rhylea 12/30/2010 - Normal . Spontaneous labor at 39 and 1. Rapid second stage, delivered after 2 pushes. Hand presntation. Intrathecal for anesthesia. 8lbs 2oz Ultrasounds: US for Dates 03/11/2012: KEITH is 11/06/12 with a gestational age of 5 weeks 5 days Nuchal Translucency 05/04/2012: 13 weeks 5 days, EDC of 11/04/2012 Survey 06/08/2012: Questionable dolichocephaly. GA 18w5d. EDC 11/04/2012. Follow up/Growth ultrasound 07/01/2012: GA 21w5dm EDC 11/06/2012. Cephalic index 66, question mild dolichocephaly Level II ultrasound 07/16/2012: Dolicocephaly with normal intracranial anatomy. OB Patient Education Checklist Date/ Initial HIV test counseled Habits Nutrition/Vitamins Activities Common Problems Genetic Referral Nuchal /1st trim.screen Normal - 07/29/2012 Quad Screen Quickening Anatomy scan Labor Signs/Symptoms Set up 1 hr GCT 07/29/2012 Anemia check * 07/29/2012 Kick Counts Preeclampsia Sympt. Breast/Bottle Declines - didn't work with other kids. 09/13/2012 Family Planning Last baby - planning tubal PPTL Would like PPTL 07/29/2012 Birthing Options Would like an epidural if time allows 09/13/2012 Labor/Delivery 09/13/2012 Baby Care 09/13/2012 Circumcision 09/13/2012 Well Water Car Seat 09/13/2012 Post Dates Travel/Work *Anemia of : hemoglobin <11 in 1st and 3rd Trimester, <10.5 in Second trimester Threatened premature labor, unspecified as to episode of care 05/27/2006 04/17/2009 Twin with lo ss and retention of one fetus, unspecified as to episode of care or not applicable 05/27/2006 09/13/2012 Overview (05/27/2006): Early loss of twin B at 13-14 weeks Other convulsions 05/27/2006 03/30/2017 Overview (05/27/2006): history of seizures as a teen. none for > 4 years Depressive disorder, not elsewhere classified 09/13/2012 Anxiety state, unspecified 0 09/13/2012 Polyhydramnios affecting pre gnancy in third trimester 11/01/2017 contractions 018 Immunizations Immunization Administration Dates Next Due Hepatitis B, Unspecified 11/05/1998 Influenza, IIV4 01/06/2017,01/21/2016 Tdap 06/28/2017,08/30/2012,12/31/2010 Tuberculin (PPD) 05/30/2012, 3,03/17/2011,03/10/2011, 007 Family History * Patient is adopted Medical History Relation Name Comments Unknown Father Cancer-ovarian Mother Hepatitis Mother C Seizures Mother Endometriosis Sister Charlotte (bio sister) Relation Name Status Comments Father Alive Mother Alive Sister Charlotte (bio sister) Alive Social History Tobacco Use Types Packs/Day Years Used Date Smoking Tobacco: Some Days Cigarettes Last attempted to quit: 06/03/2005 Smokeless Tobacco: Never Tobacco Cessation:Ready to Q uit: No; Counseling Given: Yes Comments:05/04 ppd Alcohol Use Standard Drinks/Week Comments Yes 0 (1 standard drink = 0.6 oz pur e alcohol) occasional wine PHQ-2 Answer Date Recorded PHQ-2 Score 0 07/02/2018 Social Connections Answer Date Recorded Frequency of Communication with Friends and Fami ly Not on file 05/03/2021 Financial Resource Strain Answer Date R ecorded Difficulty of Paying Living Expenses Not on file 05/03/2021 Difficulty of Paying Living Expenses Not on file 05/03/2021 Interpersonal Safety Answer Date Record ed Are you being hit, kicked, p ushed or yelled at (see row info)? 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 No D&C 2006 Term 40w 0d 3.32 kg (7 lb 5 oz) F Vag Livin g Maril yn Comments:Twin IUP, at 20 week scan, saw that 1 twin had , measured 16 weeks, no exam of 2nd twin 2007 SAB Comments:Had pos UPT, in to MD pos UPT, then bleeding 2007 SAB Comments:Had pos UPT, in to MD pos UPT, then bleeding 9 SAB 16w 0d Delivery Location:[place] Comments:IN to ER with abd pain, felt like I had a UTI, Required D and C 2009 Term 41w 0d 3.71 kg (8 lb 3 oz) F Vag Epidur al Livin g Obdulia n Klebs Delivery Location:[place] 2010 Term 39w 1d 3.69 kg (8 lb 2 oz) F Vag Livin g Rhlea Dewit t Delivery Location:[place] 2011 SAB 2012 Term 41w 0d 3.94 kg (8 lb 11 oz) M Vag Livin g 7 9 KISHORE JULES JR. Delivery Location:[facility] 2013 SAB 7 AB 6w0 d SPONTA NEOUS 2017 Term 39w 1d 4.23 kg (9 lb 5.2 oz) M CS-LTr anv Spinal N Nataly Vieira on Dr. Rama patton Complications:None Last Filed Vital Signs Vital Sign Reading Time Taken Comments Blood Pressure 145/76 11/17/2023 2:23 PM CDT Pulse 93 11/17/2023 2:27 PM CDT Temperature 36.8 C (98.3 F) 11/17/2023 2:23 PM CDT Respiratory Rate 18 11/17/2023 2:27 PM CDT Oxygen Saturation 98% 11/17/2023 2:27 PM CDT Inhaled Oxygen Concentration - - Weight 97.5 kg (215 lb) 11/17/2023 2:23 PM CDT Height 160 cm (5' 3) 11/17/2023 2:25 PM CDT Body Mass Index 38.09 11/17/2023 2:23 PM CDT Plan of Treatment Health Maintenance Due Date Last Done Comments Pneumococcal series for age 6-49 (1 of 2 - PCV) 10/22/2003 Depression screening for age 12+ 09/29/2018 09/29/2017, 09/29/2017, 03/02/2017, Additional history exists Pap test for age 21-65 10/24/2018 6, 10/25/2015, 03/10/2012, Additional history exists BMI (ht and wt on same day) for age 18+ 04/19/2019 04/19/2018, 06/24/2017, 01/22/2017, Additional history exists COVID-19 vaccine series ( season) 2024 06/01/2021, 03/06/2021 Influenza Vaccine (#1) 2024 01/06/2017, 2015 Tetanus booster 06/28/2027 06/28/2017, 08/03, 12/31/2010 HIV for age 15-65 Completed 01/06/2017, , 03/08/2012, Additional history exists Hepatitis C screening for ag e 18-79 Completed 01/06/2017, 06/14/2009 Tdap Completed 06/28/2017, 08/03, 12/31/2010 Procedures Procedure Name Priority Date/Time Associated Diagnosis Comments ANTI HIV 1/2 Routine 01/06/2017 1:54 PM CDT Supervision of normal first , antepartum ANTI HCV Routine 01/06/2017 1:54 PM CDT Supervision of normal first , antepartum BODY TRIMMER THIN PREP PAP DIAGNOSTIC IMAGED Routine 10/25/2015 4:59 PM CDT Cervical cancer screening from Last 3 Months or Most Recently Relevant to Health Maintenance Results * ANTI HCV (01/06/2017 1:54 PM CDT) HEPATITIS C ANTIBODY Non-Reacti ve Non-Reacti ve 01/06/2017 10:41 PM CDT [facility] Blood BLOOD SPECIMEN / Unknown Venipuncture / Unknown 01/06/2017 1:54 PM CDT 01/06/2017 1:54 PM CDT [facility] - 01/06/2017 10:41 PM CDT Antibodies to HCV not detected; does not exclude the possibility of exposure to HCV. Daniela GAO SEND OUTS Final R esult Performing Organization Address City/[facility]/ZIP Co de Phone Number [facility] [address] [place] [address], [place] * ANTI HIV 1/2 (01/06/2017 1:54 PM CDT) Pathologist [facility] HIV-1/HIV-2 ANTIBODY Non-Reacti ve Non-Reacti ve 01/06/2017 10:23 PM CDT [facility] Blood BLOOD SPECIMEN / Unknown Venipuncture / Unknown 01/06/2017 1:54 PM CDT 01/06/2017 1:54 PM CDT Narrative [facility] - 01/06/2017 10:23 PM CDT HIV-1 p24 and HIV-1/HIV-2 Ab not detected Daniela GAO SEND OUTS Final R esult [facility] [address] [place] [address], [place] * BODY TRIMMER THIN PREP PAP DIAGNOSTIC IMAGED (10/25/2015 4:59 PM CDT) BODY TRIMMER CYTOLOGY See Anatomic Pathology case 10/26/2015 5:00 PM CDT [facility] Other (Cervical) Non-Blood / Unknown 10/25/2015 4:59 PM CDT 10/25/2015 4:59 PM CDT us Franc Chatman NP PATHOLOGY/CYTOLOGY Final Result [facility] [address] [place] [address], [place] from Last 3 Months or Most Recently Relevant to Health Maintenance Insurance [employer] Advance Directives * Full Code (Latest Code Status on File) Date Activated Date Inactivated Comments 09/05/2017 7:47 AM 09/08/2017 6:17 PM Question Answer Comments Code Status Discussion: Not Discussed * Full Code Date Activated Date Inactivated Comments 08/11/2017 8:55 PM 08/12/2017 1:34 PM * Full Code Date Activated Date Inactivated Comments 07/14/2017 10:15 PM 07/15/2017 2:14 AM * Full Code Date Activated Date Inactivated Comments 11/12/2012 9:31 PM 11/13/2012 3:41 AM * Full Code Date Activated Date Inactivated Comments 11/12/2012 8:42 PM 11/12/2012 9:31 PM Care Teams Griddle Cook Relationship Specialty Start Date End Date Pcp, No . PCP - General 12/09/18 Catherine Liang MD [address] [place] [address] Rheumatology Rheumatology 12/31/15
--- OUTSIDE RECORDS SUMMARY | 2024-07-11 16:56 | XMS_ITS | Encounter Summary ---
Author Organization [facility] Address [address] [place] [address] Care Team Providers Care Floor Tiling Professional Name Role Phone Sonya Smith APRN CLINICAL TRIAL EDUCATOR Unavailable [phone] No Ref-Primary, Physician Primary Care Provider Reason for Visit * Reason Comments Wrist Pain Encounter Details Date Type Department Care Team (Late st Contact Info) Description 06/01/2024 9:10 AM UNIT RECEPTIONIST - 06/01/2024 10:29 AM [facility] Emergency [facility] Emergency Dept [address] [place] [address] Alyson Swartz, PA-C [facility] [address] [place] [id number] Pain in both wrists; De Quervain's tenosynovitis, left; Contusion of multiple sites of right hand and wrist, initial encounter Discharge Disposition: Home or Self Care Social History Tobacco Use Types Packs/Day Years Used Date Smoking Tobacco: Every Day Cigarettes Smokeless Tobacco: Never Alcohol Use Standard Drinks/Week Comments No 0 (1 standard drink = 0.6 oz pur e alcohol) occasional PHQ-2 Answer Date Recorded PHQ-2 Score 0 07/02/2021 Adolescent Education Answer Date Record ed Getting School Help Needed Not on file 02/14 Comments No Sex and Gender Information Value Date Recorded Sex Assigned at Not on file Legal Sex Female 3:14 AM UNIT RECEPTIONIST Gender Identity Not on file Sexual Orientation Not on file documented as of this encounter Last Filed Vital Signs Vital Sign Reading Time Taken Comments Blood Pressure 123/68 06/01/2024 10:28 AM UNIT RECEPTIONIST Pulse 74 06/01/2024 10:28 AM UNIT RECEPTIONIST Temperature 36.8 C (98.2 F) 06/01/2024 8:49 AM UNIT RECEPTIONIST Respiratory Rate 18 06/01/2024 10:28 AM UNIT RECEPTIONIST Oxygen Saturation 99% 06/01/2024 10:28 AM UNIT RECEPTIONIST Inhaled Oxygen Concentration - - Weight 98 kg (216 lb 0.8 oz) 06/01/2024 8:49 AM UNIT RECEPTIONIST Height 160 cm (5' 3) 06/01/2024 8:49 AM UNIT RECEPTIONIST Body Mass Index 38.27 06/01/2024 8:49 AM UNIT RECEPTIONIST documented in this encounter Discharge Instructions * Discharge Instructions* Alyson Swartz PA-C - 06/01/2024 10:15 AM UNIT RECEPTIONIST Take 1000 mg of Tylenol every ~6 hours for pain. Do not exceed 4000 mg in 24 hours. Take 600 mg of ibuprofen every 6-8 hours for pain. Do not exceed 2400 mg in a 24-hour period. Do naproxen/Aleve instead of ibuprofen. Do not take these medications together Take the steroid as prescribed. I recommend taking this in the morning as it may make you feel moreawake Is much as possible, try to rest at the left wrist. Overuse and repetitive motions are only going to worsen her symptoms. Follow-up with orthopedics for definitive management RECEPTIONIST RECEPTIONIST * Attachments The following attachments cannot be sent through Care Everywhere. * De Quervain's Disease: Exercises (Indian) * Wrist Tendinitis Exercises (Indian) * De Quervain's: Tenosynovitis (Indian) documented in this encounter Medications at Time of Discharge diclofenac (VOLTAREN) 50 MG EC tabletIndication s:Pelvic pain in female Take 1 tablet (50 mg) by mouth 3 times daily as needed for moderate pain (4-6) 50 tablet 03/17/2022 levonorgestrel (MIRENA, 52 MG,) 20 MCG/24HR IUD 1 each by Intrauterine route methylPREDNISolo ne (MEDROL DOSEPAK) 4 MG tablet therapy pack Follow Package Directions 21 tablet 06/01/2024 documented as of this encounter ED Notes * Alyson Swartz PA-C - 06/01/2024 9:34 AM CST Emergency Department Note History of Present Illness Chief Complaint Wrist Pain HPI Evelyn Jules is a 38 year old female who presents to the ER for concerns of wrist pain. Patient is left-hand dominant and reports history of chronic left wrist pain and de Quervain's tenosynovitis. 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 The past 2 weeks of been particularly bothersome. She has been doing Aleve for pain. She used to have a wrist splint but the right away on accident. She has had to see orthopedics before and has received steroid injections. She endorses occasionally getting a numbness and tingling sensation in the fingers and wrist. Denies new injuries. No history of fracture or surgery. She also expresses concern of right wrist and hand pain. 2 weeks ago, she accidentally dropped a garbage can lid on top of her wrist. It bruised and that has resolved, but there is still an area of swelling and tenderness. Independent Historian None Review of External Notes I reviewed the patient's ED note from [facility] 10/06/2023 when seen for de Quervain's tenosynovitis Past Medical History Medical History and Problem List Past Medical History: Diagnosis Date Epilepsy Medications diclofenac (VOLTAREN) 50 MG EC tablet levonorgestrel (MIRENA, 52 MG,) 20 MCG/24HR IUD Surgical History No past surgical history on file. Physical Exam Patient Vitals for the past 24 hrs: BP Temp Temp src Pulse Resp SpO2 Height Weight 06/01/24 1028 123/68 -- -- 74 18 99 % -- -- 06/01/24 0849 (!) 134/91 98.2 ??F (36.8 ??C) Temporal 87 20 97 % 1.6 m (5' 3) 98 kg (216 lb 0.8 oz) Physical Exam Vital signs and nursing notes reviewed. General: Alert and oriented. No acute distress. Nontoxic appearance. Head: No signs of trauma. Mouth/Throat: Oropharynx moist. Eyes: Conjunctivae are normal. Pupils are equal. Neck: Normal range of motion. CV: Appears well perfused. 2+ radial pulses bilaterally. Resp: Normal effort of breathing. No respiratory distress. MSK: Normal range of motion. No obvious deformity. RUE: Mild tenderness to palpation over dorsal aspect of distal forearm and wrist and dorsal hand without overlying ecchymosis, swelling, or abrasion. 2-point sensation intact to all 5 digits. Normal range of motion of the fingers, hand, wrist. Capillary refill at all 5 digits. LUE: No focal tenderness to palpation over the hand, digits, or wrist. 2-point sensation intact to all 5 digits. Normal range of motion of the fingers, hand, wrist. Capillary refill at all 5 digits. + tram. Reports paresthesias in ulnar distribution with certain wrist movements; no weaknessagainst strength Neuro: The patient is alert and interactive. Speech normal. GCS 15 Skin: No lesions or sign of trauma noted. Psych: Normal mood and affect, and behavior. Diagnostics Lab Results Labs Ordered and Resulted from Time of ED Arrival to Time of ED Departure - No data to display Imaging XR Wrist Right G/E 3 Views Final Result IMPRESSION: Normal joint spaces and alignment. No fracture. XR Hand Right G/E 3 Views Final Result IMPRESSION: Normal joint spaces and alignment. No fracture. Independent Interpretation I reviewed the hand x-ray and appreciate no acute fracture or bony injury ED Course Medications Administered Medications - No data to display Procedures Procedures Discussion of Management None ED Course ED Course as of 06/01/24 1500 Berna Jun 01, 2024 1011 I reassessed the patient and updated them on results and plan of care. Additional Documentation None Medical Decision Making / Diagnosis CMS Diagnoses: None MIPS none MDM Evelyn Jules is a 38 year old female who presents to the emergency department for bilateral wrist concerns. See HPI. Vitals are stable. First off, her right wrist sustained a trauma a couple of weeks ago. X-rays negative for fracture or other bony injury. Exam is reassuring with no deformity, ecchymosis, edema. CMS is intact. Presentation consistent with a contusion that will heal over time. Secondly, patient has chronic issues with her left wrist and a history of de Quervain's tenosynovitis. She does work a job that requires repetitive wrist and hand movements. Her exam is consistent with de Quervain's tenosynovitis as well as a possible ulnar neuropathy with intermittent paresthesias. Pulses and cap refill are normal. Strength is normal and sensation is intact. No indication for emergent orthopedic consultation or advanced imaging. She will be placed in a wrist splint and startedon a Medrol Dosepak and will have close follow-up with orthopedics. Return precautions reviewed. Patient agreeable to plan and had questions answered. Disposition The patient was discharged. Diagnosis ICD-10-CM 1. Pain in both wrists M25.531 M25.532 2. De Quervain's tenosynovitis, left M65.4 3. Contusion of multiple sites of right hand and wrist, initial encounter S60.221A S60.211A Discharge Medications Discharge Medication List as of 06/01/2024 10:17 AM START taking these medications Details methylPREDNISolone (MEDROL DOSEPAK) 4 MG tablet therapy pack Follow Package Directions, Disp-21 tablet, R-0, E-Prescribe Alyson Swartz PA-C on 06/01/2024 at 3:14 PM Alyson Swartz PA-C 06/01/24 1514 RECEPTIONIST * Sheela Newton RN - 06/01/2024 8:50 AM CST Pt c/o pain in both wrists. Pt hurt her right wrist with the lid of a garbage can while at work 2 weeks ago. C/o pain, swelling and popping in both wrists. Pt has a hx of some form of tendonitis. Triage Assessment (Adult) Row Name 06/01/24 0850 Triage Assessment Airway WDL WDL Respiratory WDL Respiratory WDL WDL Skin Circulation/Temperature WDL Skin Circulation/Temperature WDL WDL Cardiac WDL Cardiac WDL WDL Peripheral/Neurovascular WDL Peripheral Neurovascular WDL WDL Cognitive/Neuro/Behavioral WDL Cognitive/Neuro/Behavioral WDL WDL RECEPTIONIST documented in this encounter Plan of Treatment Not on file documented as of this encounter Procedures Procedure Name Priority Date/Time Associated Diagnosis Comments XR WRIST RIGHT G/E 3 VIEWS STAT 06/01/2024 9:53 AM UNIT RECEPTIONIST XR HAND RIGHT G/E 3 VIEWS STAT 06/01/2024 9:53 AM UNIT RECEPTIONIST documented in this encounter Results * XR Wrist Right G/E 3 Views (06/01/2024 9:53 AM UNIT RECEPTIONIST) Anatomical Region Laterality Modality Wrist, Right Wrist Right Digital Radio graphy 06/01/2024 9:53 AM UNIT RECEPTIONIST Impressions 06/01/2024 9:58 AM UNIT RECEPTIONIST IMPRESSION: Normal joint spaces and alignment. No fracture. Narrative 06/01/2024 9:58 AM UNIT RECEPTIONIST EXAM: XR WRIST RIGHT G/E 3 VIEWS, XR HAND RIGHT G/E 3 VIEWS LOCATION: [facility] DATE: 06/01/2024 INDICATION: trauma, dorsal swelling COMPARISON: None. Procedure Note Carlos Montoya MD - 06/01/2024 EXAM: XR WRIST RIGHT G/E 3 VIEWS, XR HAND RIGHT G/E 3 VIEWS LOCATION: [facility] DATE: 06/01/2024 INDICATION: trauma, dorsal swelling COMPARISON: None. IMPRESSION: Normal joint spaces and alignment. No fracture. Alyson Swartz PA-C [facility] Final Result * XR Hand Right G/E 3 Views (06/01/2024 9:53 AM UNIT RECEPTIONIST) Anatomical Region Laterality Modality Hand, Wrist Right Digital Radiogra phy 06/01/2024 9:53 AM UNIT RECEPTIONIST Impressions 06/01/2024 9:58 AM UNIT RECEPTIONIST IMPRESSION: Normal joint spaces and alignment. No fracture. Narrative 06/01/2024 9:58 AM UNIT RECEPTIONIST EXAM: XR WRIST RIGHT G/E 3 VIEWS, XR HAND RIGHT G/E 3 VIEWS LOCATION: [facility] DATE: 06/01/2024 INDICATION: trauma, dorsal swelling COMPARISON: None. Procedure Note Carlos Montoya MD - 06/01/2024 EXAM: XR WRIST RIGHT G/E 3 VIEWS, XR HAND RIGHT G/E 3 VIEWS LOCATION: [facility] DATE: 06/01/2024 INDICATION: trauma, dorsal swelling COMPARISON: None. IMPRESSION: Normal joint spaces and alignment. No fracture. Alyson Swartz PA-C [facility] Final Result documented in this encounter Visit Diagnoses Diagnosis Pain in both wrists Pain in joint, forearm De Quervain's tenosynovitis, left Radial styloid tenosynovitis Contusion of multiple sites of right hand and wrist, initial encounter documented in this encounter Additional Health Concerns Assessment Noted Time PHQ-9 Depression Total Score: 0 06/24/19 22 1:03 PM UNIT RECEPTIONIST documented as of this encounter Care Teams Floor Tiling Professional Relationship Specialty Start Date End Date No Ref-Primary, Physician PCP - General 06/01/24 Sonya Smith APRN CLINICAL TRIAL EDUCATOR [address] [place] [address] Assigned PCP 09/23/23 documented as of this encounter
--- OUTSIDE RECORDS SUMMARY | 2024-07-11 16:56 | XMS_ITS | Encounter Summary ---
Author Organization [facility] Address [address] [place] [address] Care Team Providers Care Manager Ct Name Role Phone Anmol Cruz MD Unavailable Sonya Smith APRN LAST PULLER Primary Care Provider Sonya Smith APRN LAST PULLER Unavailable [phone] Dipak Villegas MD Unavailable + [phone] Fredo Culver MD Unavailable Sonya Smith APRN LAST PULLER Unavailable [phone] No Ref-Primary, Physician Primary Care Provider Encounter Details Date Type Department Care Team (Late st Contact Info) Description 03/24/2022 MyC Medical Advice [facility] [address] [place] [address] Starr Mendoza Social History Tobacco Use Types Packs/Day Years Used Date Smoking Tobacco: Every Day Cigarettes Smokeless Tobacco: Never Alcohol Use Standard Drinks/Week Comments No 0 (1 standard drink = 0.6 oz pur e alcohol) occasional PHQ-2 Answer Date Recorded PHQ-2 Score 0 07/02/2021 Comments No Sex and Gender Information Value Date Recorded Sex Assigned at Not on file Legal Sex Female 3:14 AM COMMUNITY ORGANIZATION AIDE Gender Identity Not on file Sexual Orientation Not on file COVID-19 Exposure Response Date Recorded In the last 10 days, have yo u been in contact with someone who was confirmed or suspected to have Coronavirus/COVID-19? No / Unsure 03/24/2022 8:49 AM COMMUNITY ORGANIZATION AIDE documented as of this encounter Plan of Treatment Not on file documented as of this encounter Visit Diagnoses Not on filedocumented in this encounter Additional Health Concerns Assessment Noted Time PHQ-9 Depression Total Score: 0 06/24/19 1:03 PM COMMUNITY ORGANIZATION AIDE documented as of this encounter Care Teams Manager Ct Relationship Specialty Start Date End Date Sonya Smith APRN LAST PULLER [address] [place] [address] PCP - General Family Practice 07/12/21 05/31/24 No Ref-Primary, Physician PCP - General 06/01/24 Anmol Cruz MD [address] [place] [address] [address] [place] [address] Assigned Musculoskeletal Provider 06/22/21 12/25/22 Sonya Smith APRN LAST PULLER [address] [place] [address] Assigned PCP 07/13/21 01/08/23 Dipak Villegas MD [address] [place] [address] Assigned OBGYN Provider 03/28/22 [place] [address] [place] [address] Assigned PCP 01/09/23 09/22/23 Sonya Smith APRN LAST PULLER [address] [facility] [address] Assigned PCP 09/23/23 documented as of this encounter
--- OUTSIDE RECORDS SUMMARY | 2024-07-11 16:56 | XMS_ITS | Encounter Summary ---
Author Organization [facility] Address [address] [place] [address] Care Team Providers Care Bead Supervisor Name Role Phone Anmol Cruz MD Unavailable Sonya Smith APRN LAMP SHADE JOINER Primary Care Provider Sonya Smith APRN LAMP SHADE JOINER Unavailable [phone] Dipak Villegas MD Unavailable + [phone] Fredo Culver MD Unavailable Sonya Smith APRN LAMP SHADE JOINER Unavailable [phone] No Ref-Primary, Physician Primary Care Provider Encounter Details Date Type Department Care Team (Late st Contact Info) Description 03/24/2022 [facility] Medical Advice [facility] [address] [place] [phone] Dipak Villegas MD [address] [place], [place] [id number] Social History Tobacco Use Types Packs/Day Years Used Date Smoking Tobacco: Every Day Cigarettes Smokeless Tobacco: Never Alcohol Use Standard Drinks/Week Comments No 0 (1 standard drink = 0.6 oz pur e alcohol) occasional PHQ-2 Answer Date Recorded PHQ-2 Score 0 07/02/2021 Comments No Sex and Gender Information Value Date Recorded Sex Assigned at Not on file Legal Sex Female 3:14 AM WAREHOUSE ENGINEER Gender Identity Not on file Sexual Orientation Not on file COVID-19 Exposure Response Date Recorded In the last 10 days, have yo u been in contact with someone who was confirmed or suspected to have Coronavirus/COVID-19? No / Unsure 03/24/2022 8:49 AM WAREHOUSE ENGINEER documented as of this encounter Miscellaneous Notes * Telephone Encounter - Adrianna Escamilla RN - 03/24/2022 2:46 PM CST Pt advised via my chart. Samaria Escamilla RN HOUSE ENGINEER * Telephone Encounter - Dipak Villegas MD - 03/24/2022 2:40 PM WAREHOUSE ENGINEER I would advise her to return to discuss tubal ligation/salpingectomy to clarify with patient the intent of the procedure which is only for sterilization. Her MyChart messages seem to imply that if she gets the tubal ligation/salpingectomy, that it will make her not get ovarian cysts. This can be explained in person with her so that she can also decide at that visit to get her tubalpapers signed if she wants to go forward with it. Dipak Villegas MD HOUSE ENGINEER * Telephone Encounter - Adrianna Escamilla RN - 03/24/2022 1:04 PM CST Please address the my chart message. Last OV 03/20/22. Pelvic US was done on 03/24/22. Samaria Escamilla RN HOUSE ENGINEER documented in this encounter Plan of Treatment Not on file documented as of this encounter Visit Diagnoses Not on filedocumented in this encounter Additional Health Concerns Assessment Noted Time PHQ-9 Depression Total Score: 0 06/24/19 1:03 PM WAREHOUSE ENGINEER documented as of this encounter Care Teams Bead Supervisor Relationship Specialty Start Date End Date Sonya Smith APRN LAMP SHADE JOINER [address] [place] [address] PCP - General Family Practice 07/12/21 05/31/24 No Ref-Primary, Physician PCP - General 06/01/24 Anmol Cruz MD [address] [facility] [address] [place], [place] [address] Assigned Musculoskeletal Provider 06/22/21 12/25/22 Sonya Smith APRN LAMP SHADE JOINER [address] [place] [address] Assigned PCP 07/13/21 01/08/23 Dipak Villegas MD [address] [place] [address] Assigned OBGYN Provider 03/28/22 [place] [address] [place] [address] Assigned PCP 01/09/23 09/22/23 Sonya Smith APRN LAMP SHADE JOINER [address] [place] [address] Assigned PCP 09/23/23 documented as of this encounter
--- OUTSIDE RECORDS SUMMARY | 2024-07-11 16:56 | XMS_ITS | Encounter Summary ---
Author Organization [facility] Address [address] [place] [address] Care Team Providers Care Warper Fixer Name Role Phone Sonya Smith APRN SCREW MACHINE SET UP OPERATOR TOOL Primary Care Provider Dipak Villegas MD Unavailable + [phone] Fredo Culver MD Unavailable Sonya Smith APRN SCREW MACHINE SET UP OPERATOR TOOL Unavailable [phone] No Ref-Primary, Physician Primary Care Provider Encounter Details Date Type Department Care Team (Late st Contact Info) Description 04/01/2023 MyC Medical Advice [address] [address] Nate Yost, EDGARDO Social History Tobacco Use Types Packs/Day Years [...] on file Legal Sex Female 3:14 AM WIND FARM OPERATIONS MANAGER Gender Identity Not on file Sexual Orientation Not on file documented as of this encounter Plan of Treatment Not on file documented as of this encounter Visit Diagnoses Not on filedocumented in this encounter Additional Health Concerns Assessment Noted Time PHQ-9 Depression Total Score: 0 06/24/19 22 1:03 PM WIND FARM OPERATIONS MANAGER documented as of this encounter Care Teams Warper Fixer Relationship Specialty Start Date End Date Sonya Smith APRN SCREW MACHINE SET UP OPERATOR TOOL [address] [place] [address] PCP - General Family Practice 07/12/21 05/31/24 No Ref-Primary, Physician PCP - General 06/01/24 Dipak Villegas MD [address] [place] [address] Assigned OBGYN Provider 03/28/22 [place] [address] [place] [address] Assigned PCP 01/09/23 09/22/23 Sonya Smith APRN SCREW MACHINE SET UP OPERATOR TOOL [address] [place] [address] Assigned PCP 09/23/23 documented as of this encounter
--- OUTSIDE RECORDS SUMMARY | 2024-07-11 16:56 | XMS_ITS | Encounter Summary ---
Author Organization [facility] Address [address] [place] [address] Care Team Providers Care Family Service Assistant Name Role Phone [facility] Primary Care Provider Brigitte Acevedo APRN NUCLEAR MEDICINE MEDICAL DIRECTOR Unavailable [phone] No Ref-Primary, Physician Primary Care Provider Anmol Cruz MD Unavailable Sonya Smith APRN NUCLEAR MEDICINE MEDICAL DIRECTOR Primary Care Provider Sonay Smith APRN NUCLEAR MEDICINE MEDICAL DIRECTOR Unavailable [phone] Dipak Villegas MD Unavailable + [phone] Fredo Culver MD Unavailable Sonya Smith APRN NUCLEAR MEDICINE MEDICAL DIRECTOR Unavailable [phone] No Ref-Primary, Physician Primary Care Provider Encounter Details Date Type Department Care Team (Late st Contact Info) Description 01/27/2021 Documentation Only INTERFACED REPORT Unknown, Provider Social History Tobacco Use Types Packs/Day Years Used Date Smoking Tobacco: Every Day Cigarettes Smokeless Tobacco: Never Alcohol Use Standard Drinks/Week Comments No 0 (1 standard drink = 0.6 oz pur e alcohol) occasional Comments No Sex and Gender Information Value Date Recorded Sex Assigned at Not on file Legal Sex Female 3:14 AM HAND HARDENER Gender Identity Not on file Sexual Orientation Not on file COVID-19 Exposure Response Date Recorded In the last month, have you been in contact with someone who was confirmed or suspected to have Coronavirus / COVID-19? No / Unsure 01/26/2021 9:12 PM CDT documented as of this encounter Plan of Treatment Not on file documented as of this encounter Visit Diagnoses Not on filedocumented in this encounter Care Teams Family Service Assistant Relationship Specialty Start Date End Date [facility], [address] [address] PCP - General 01/11/17 06/14/21 No Ref-Primary, Physician PCP - General 06/15/21 07/11/21 Sonya Smith APRN NUCLEAR MEDICINE MEDICAL DIRECTOR [address] [place] [address] PCP - General Family Practice 07/12/21 05/31/24 No Ref-Primary, Physician PCP - General 06/01/24 Brigitte Acevedo APRN NUCLEAR MEDICINE MEDICAL DIRECTOR [address] [place] [address] Assigned PCP 12/08/20 07/12/21 Anmol Cruz MD [address] [place] [address] [address] [place] [address] Assigned Musculoskeletal Provider 06/22/21 12/25/22 Sonya Smith APRN NUCLEAR MEDICINE MEDICAL DIRECTOR [address] [place] [address] Assigned PCP 07/13/21 01/08/23 Dipak Villegas MD [address] [place] [address] Assigned OBGYN Provider 03/28/22 [place] [address] [facility] [place] [address] Assigned PCP 01/09/23 09/22/23 Sonya Smith APRN NUCLEAR MEDICINE MEDICAL DIRECTOR [address] [facility] [place] [address] Assigned PCP 09/23/23 documented as of this encounter
--- OUTSIDE RECORDS SUMMARY | 2024-07-11 16:57 | XMS_ITS | Clinical Summary ---
Author Organization [facility] Address [address] [place] [address] Care Team Providers Care Salt Operator Name Role Phone No Primary/Referring, Phy Primary Care Provider Unavailable Source Comments You are receiving this document as you are listed as the primary care provider,follow-up provider, or the patient has been referred to you for consultation.This is in compliance with the Medicare and[facility] EHR Incentive Program,which states Providers who transition their patient to another setting of careor provider of care or refers their patient to another provider of care shouldprovide summary care record for each transition of care or referral. [facility] Allergies No known active allergies Medications levonorgestrel (MIRENA, 52 MG,) 20 MCG/24HR IUD 1 Each by Intrauterine route once. Active tiZANidine (ZANAFLEX) 4 MG tabletIndicatio ns:Strain of trapezius muscle, unspecified laterality, initial encounter Take 1 Tablet by mouth daily at bedtime. 15 Tablet 1 Active Active Problems Problem Noted Date Diagnosed Date Back pain 08/30/2018 Chronic neck pain 01/18/2018 Social History Tobacco Use Types Packs/Day Years Used Date Smoking Tobacco: Every Day Smokeless Tobacco: Never Alcohol Use Standard Drinks/Week Comments Not Currently 0 (1 standard drink = 0.6 oz pur e alcohol) Comments No Sex and Gender Information Value Date Recorded Sex Assigned at Not on file Legal Sex Female 4:21 PM CDT Gender Identity Not on file Sexual Orientation Not on file Last Filed Vital Signs Vital Sign Reading Time Taken Comments Blood Pressure 102/60 03/15/2020 2:00 PM TRACTOR TECHNICIAN Pulse 85 03/15/2020 2:00 PM TRACTOR TECHNICIAN Temperature 36.9 C (98.5 F) 03/15/2020 2:00 PM TRACTOR TECHNICIAN Respiratory Rate 16 06/02/2019 2:04 PM TRACTOR TECHNICIAN Oxygen Saturation 98% 03/15/2020 2:00 PM TRACTOR TECHNICIAN Inhaled Oxygen Concentration - - Weight 89.4 kg (197 lb) 03/15/2020 2:00 PM TRACTOR TECHNICIAN Height 162.6 cm (5' 4) 09/27/2017 5:18 PM CDT Body Mass Index 33.81 09/27/2017 5:18 PM CDT Plan of Treatment Health Maintenance Due Date Last Done Comments Cervical Cancer Screening Due 1984 Hep C Screening (Preventive Services) 1984 HIV Screening (Preventive Services) 2000 Adult Preventive Visit 2002 HepB (1) 10/22/2003 Pneumococcal (1 of 2 - PCV) 10/22/2003 COVID-19 Vaccine (1 - 2023-2 5 season) 2024 Influenza (#1) 2024 01/06/2017, 01/21/2016 DTaP/Tdap/Td (4 - Tdap) 06/28/2027 06/28/19 18, 08/30/2012, 12/31/2010 Zoster/Shingles (1 of 2) 2034 HPV Vaccine Aged Out No longer eligi ble based on patient's age to complete this topic HepA Aged Out No longer eligi ble based on patient's age to complete this topic Hib Aged Out No longer eligi ble based on patient's age to complete this topic IPV (Polio) Aged Out No longer eligi ble based on patient's age to complete this topic MCV4 Aged Out No longer eligi ble based on patient's age to complete this topic Meningococcal B Aged Out No longer el igible based on patient's age to complete this topic Care Teams Salt Operator Relationship Specialty Start Date End Date No Primary/Referring, Kirtiy PCP - General 09/27/17
--- OUTSIDE RECORDS SUMMARY | 2024-07-11 16:57 | XMS_ITS | Encounter Summary ---
Author Organization [facility] Address [address] [place] [address] Care Team Providers Care Pantograph Setter Name Role Phone Jennie Acevedona JESSIE INGREDIENT SCALER Unavailable [phone] No Ref-Primary, Physician Primary Care Provider Anmol Cruz MD Unavailable Sonya Smith APRN, CNP Primary Care Provider Sonya Smith APRN INGREDIENT SCALER Unavailable [phone] Dipak Villegas MD Unavailable + [phone] Fredo Culver MD Unavailable Sonya Smith APRN INGREDIENT SCALER Unavailable [phone] No Ref-Primary, Physician Primary Care Provider Reason for Visit * Reason Onset Date Comments Patient Inquiry 07/07/2021 Encounter Details Date Type Department Care Team (Late st Contact Info) Description 07/07/2021 [facility] [facility] [address] [place] [address] Sonya Smith APRN INGREDIENT SCALER [address] [place] [address] Patient Inquiry Social History Tobacco Use Types Packs/Day Years Used Date Smoking Tobacco: Every Day Cigarettes Smokeless Tobacco: Never Alcohol Use Standard Drinks/Week Comments No 0 (1 standard drink = 0.6 oz pur e alcohol) occasional PHQ-2 Answer Date Recorded PHQ-2 Score 0 07/02/2021 Comments No Sex and Gender Information Value Date Recorded Sex Assigned at Not on file Legal Sex Female 3:14 AM WRIST HEMMER Gender Identity Not on file Sexual Orientation Not on file COVID-19 Exposure Response Date Recorded In the last month, have you been in contact with someone who was confirmed or suspected to have Coronavirus / COVID-19? No / Unsure 07/02/2021 3:42 PM WRIST HEMMER documented as of this encounter Miscellaneous Notes * Telephone Encounter - Brigitte cAevedo Ra, APRN CNP - 07/10/2021 11:00 AM WRIST HEMMER She should be seen to evaluate, if not in office, in urgent care. EZE T HEMMER * Telephone Encounter - Stacey Ramachandran RN - 07/09/2021 5:45 PM CST Will route to POD since Abiola Smith is out of the office for the next 2 weeks. Stacey Ramachandran RN T HEMMER * Telephone Encounter - Azeem Velez RN - 07/08/2021 5:13 PM CST Please see patient MyChart message regarding follow up on leg bump. Last OV w/ V.O. 07/02/21. Please review and advise. Azeem Griffin RN T HEMMER documented in this encounter Plan of Treatment Not on file documented as of this encounter Visit Diagnoses Not on filedocumented in this encounter Additional Health Concerns Assessment Noted Time PHQ-9 Depression Total Score: 0 06/24/19 1:03 PM WRIST HEMMER documented as of this encounter Care Teams Pantograph Setter Relationship Specialty Start Date End Date No Ref-Primary, Physician PCP - General 06/15/21 07/11/21 Sonya Smith APRN INGREDIENT SCALER [address] [place] [address] PCP - General Family Practice 07/12/21 05/31/24 No Ref-Primary, Physician PCP - General 06/01/24 Brigitte Acevedo APRN INGREDIENT SCALER [address] [place] [address] Assigned PCP 12/08/20 07/12/21 Anmol Cruz MD [address] [facility] [address] [place], [place] [address] Assigned Musculoskeletal Provider 06/22/21 12/25/22 Sonya Smith APRN INGREDIENT SCALER [address] [facility] [address] Assigned PCP 07/13/21 01/08/23 Dipak Villegas MD [address] [place] [address] Assigned OBGYN Provider 03/28/22 [place] [address] [address] [place] [address] Assigned PCP 01/09/23 09/22/23 Sonya Smith APRN INGREDIENT SCALER [address] [facility] [address] Assigned PCP 09/23/23 documented as of this encounter
--- OUTSIDE RECORDS SUMMARY | 2024-07-11 16:57 | XMS_ITS | Encounter Summary ---
Author Organization [facility] Address [address] [place] [address] Care Team Providers Care Care Specialist Name Role Phone Brigitte Acevedo APRN, CNP Unavailable [phone] Anmol Cruz MD Unavailable Sonya Smith APRN, CNP Primary Care Provider Sonya Smith APRN, CNP Unavailable [phone] Dipak Villegas MD Unavailable [phone] Fredo Culver MD Unavailable Sonya Smith APRN, CNP Unavailable [phone] No Ref-Primary, Physician Primary Care Provider Encounter Details Date Type Department Care Team (Late st Contact Info) Description 07/12/2021 Documentation Only INTERFACED REPORT Unknown, Provider Social [...] on file Legal Sex Female 3:14 AM OPERATION SHIFT SUPERVISOR Gender Identity Not on file Sexual Orientation Not on file COVID-19 Exposure Response Date Recorded In the last month, have you been in contact with someone who was confirmed or suspected to have Coronavirus / COVID-19? No / Unsure 07/12/2021 10:18 AM OPERATION SHIFT SUPERVISOR documented as of this encounter Plan of Treatment Not on file documented as of this encounter Visit Diagnoses Not on filedocumented in this encounter Additional Health Concerns Assessment Noted Time PHQ-9 Depression Total Score: 0 06/24/19 22 1:03 PM OPERATION SHIFT SUPERVISOR documented as of this encounter Care Teams Care Specialist Relationship Specialty Start Date End Date Sonya Smith APRN ASSOCIATE PROFESSOR OF BIBLICAL STUDIES [address] [place] [address] PCP - General Family Practice 07/12/21 05/31/24 No Ref-Primary, Physician PCP - General 06/01/24 Brigitte Acevedo APRN ASSOCIATE PROFESSOR OF BIBLICAL STUDIES [address] [place] [address] Assigned PCP 12/08/20 07/12/21 Anmol Cruz MD [address] [place] [address] Assigned Musculoskeletal Provider 06/22/21 12/25/22 Sonya Smith APRN ASSOCIATE PROFESSOR OF BIBLICAL STUDIES [address] [facility] [place] [address] Assigned PCP 07/13/21 01/08/23 Dipak Villegas MD [address] [place] [address] Assigned OBGYN Provider 03/28/22 [place] [address] [place] [address] Assigned PCP 01/09/23 09/22/23 Sonya Smith APRN ASSOCIATE PROFESSOR OF BIBLICAL STUDIES [address] [facility] [place] [address] Assigned PCP 09/23/23 documented as of this encounter
--- OUTSIDE RECORDS SUMMARY | 2024-07-11 16:57 | XMS_ITS | Clinical Summary ---
Author Organization [facility] Address [address] [place] [address] Care Team Providers Care Clinical Dental Technician Name Role Phone Sonya Smith APRN COUNSELOR AT LAW Unavailable [phone] No Ref-Primary, Physician Primary Care Provider Allergies No known active allergies Medications levonorgestrel (MIRENA, 52 MG,) 20 MCG/24HR IUD 1 each by Intrauterine route Active diclofenac (VOLTAREN) 50 MG EC tabletIndicatio ns:Pelvic pain in female Take 1 tablet (50 mg) by mouth 3 times daily as needed for moderate pain (4-6) 50 tablet 2 Active Additional Information Patient not taking.Reported on 03/20/2022 methylPREDNISol one (MEDROL DOSEPAK) 4 MG tablet therapy pack Follow Package Directions 21 tablet 5 Active Active Problems Problem Noted Date Diagnosed Date History of seizure disorder 07/06/2021 Overview (07/06/2021): None since approximately 2003 Contusion of knee and lower leg 07/06/2021 Overview (07/06/2021): Bilateral. Assessment & Plan (07/06/2021 7:12 PM CANDY CUTTER HAND): Bilateral leg contusions lower leg. Seen at ED with X-rays that were negative. Has been going to work. 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 No focal pain. No acute worsening Habitual aborter 09/12/2008 Resolved Problems Problem Noted Date Diagnosed Date Resolved Date Encounter for triage in patient 07/24/2017 07/06/2021 CARDIOVASCULAR SCREENING; LD L GOAL LESS THAN 160 03/02/2010 07/06/2021 Seizure disorder 08/31/2008 07/06/2021 Overview (08/31/2008): No seizures or meds for 5 years. Encounters Date Type Department Care Team Description 06/01/2024 9:10 AM CANDY CUTTER HAND - 06/01/2024 10:29 AM CANDY CUTTER HAND Emergency [facility] [address] [place] [address] Alyson Swartz, SIERRA Pain in both wrists; De Quervain's tenosynovitis, left; Contusion of multiple sites of right hand and wrist, initial encounter Discharge Disposition: Home or Self Care 06/01/2024 Travel from Last 3 Months Immunizations Name Administration Dates Next Due COVID-19 MONOVALENT 12+ (Pfizer) 06/01/2021 HepB, Unspecified 11/05/1998 Influenza Vaccine >6 months,quad, PF 01/06/2017, 01/21/2016 Mantoux Tuberculin Skin Test 05/30/2012, 05/25/2012,03/17/2011,2010,09/08/2006 TDAP Vaccine (Adacel) 06/28/2017,08/30/2012,12/03 Family History Medical History Relation Comments Diabetes Father Unknown/Adopted Other PT IS ADOPTED AN D IS NOT SURE OF HER fM hx Relation Status Comments Father Alive Mother Alive Other Social History Tobacco Use Types Packs/Day Years Used Date Smoking Tobacco: Every Day Cigarettes Smokeless Tobacco: Never Tobacco Cessation:Ready to Q uit: Yes; Counseling Given: Yes Alcohol Use Standard Drinks/Week Comments No 0 (1 standard drink = 0.6 oz pur e alcohol) occasional PHQ-2 Answer Date Recorded PHQ-2 Score 0 07/02/2021 Adolescent Education Answer Date Record ed Getting School Help Needed Not on file 02/14 Comments No Sex and Gender Information Value Date Recorded Sex Assigned at Not on file Legal Sex Female 3:14 AM CANDY CUTTER HAND Gender Identity Not on file Sexual Orientation Not on file Last Filed Vital Signs Vital Sign Reading Time Taken Comments Blood Pressure 123/68 06/01/2024 10:28 AM CANDY CUTTER HAND Pulse 74 06/01/2024 10:28 AM CANDY CUTTER HAND Temperature 36.8 C (98.2 F) 06/01/2024 8:49 AM CANDY CUTTER HAND Respiratory Rate 18 06/01/2024 10:28 AM CANDY CUTTER HAND Oxygen Saturation 99% 06/01/2024 10:28 AM CANDY CUTTER HAND Inhaled Oxygen Concentration - - Weight 98 kg (216 lb 0.8 oz) 06/01/2024 8:49 AM CANDY CUTTER HAND Height 160 cm (5' 3) 06/01/2024 8:49 AM CANDY CUTTER HAND Body Mass Index 38.27 06/01/2024 8:49 AM CANDY CUTTER HAND Plan of Treatment Health Maintenance Due Date Last Done Comments ANNUAL REVIEW OF HM ORDERS 1984 YEARLY PREVENTIVE VISIT 10/22/1987 HEPATITIS B IMMUNIZATION (2 of 3 - 3-dose series) 12/03/1998 11/05/1998 Pneumococcal Vaccine: Pediatrics (0 to 5 Years) and At-Risk Patients (6 to 49 Years) (1 of 2 - PCV) 10/22/2003 HPV TEST 10/24/2020 10/25/2015, 10/25/2015 PAP 10/24/2020 10/25/2015, 10/02, 10/25/2015, Additional history exists GLUCOSE 12/04/2023 12/03/2020, 10/2016, 07/23/2008, Additional history exists COVID-19 Vaccine ( season) 2024 06/01/2021, 03/06/2021 INFLUENZA VACCINE (#1) 2024 01/06/2017, 2015 PHQ-2 (once per calendar year) 2024 07/02/2021, 06/24/2021, 06/24/2021, Additional history exists ADVANCE CARE PLANNING 07/06/2026 07/06/2021 DTAP/TDAP/TD IMMUNIZATION (4 - Td or Tdap) 06/28/2027 06/28/2017, 08/30/2012, 12/31/2010 ZOSTER IMMUNIZATION (1 of 2) 2034 HIV SCREENING Completed 01/06/2017, 08/07/2008 HEPATITIS C SCREENING Completed 07/02/2021, 017 HPV IMMUNIZATION Aged Out No longer e ligible based on patient's age to complete this topic MENINGITIS IMMUNIZATION Aged Out No l onger eligible based on patient's age to complete this topic Procedures Procedure Name Priority Date/Time Associated Diagnosis Comments XR WRIST RIGHT G/E 3 VIEWS STAT 06/01/2024 9:53 AM CANDY CUTTER HAND XR HAND RIGHT G/E 3 VIEWS STAT 06/01/2024 9:53 AM CANDY CUTTER HAND HEPATITIS C SCREEN REFLEX TO HCV RNA QUANT AND GENOTYPE Routine 07/02/2021 4:49 PM CANDY CUTTER HAND Routine [facility] COMPREHENSIVE METABOLIC PANEL Routine 12/03/2020 10:01 AM CDT RUQ abdominal pain ABSTRACT PAP ([facility] EXTERNAL RESULT) Routine 10/25/2015 ABSTRACT HPV ([facility] EXTERNAL RESULT) Routine 10/25/2015 HCL HIV 1 & 2 ANTIBODY Routine 9 10:08 AM CDT Supervision of Other Normal from Last 3 Months or Most Recently Relevant to Health Maintenance Results * XR Wrist Right G/E 3 Views (06/01/2024 9:53 AM CANDY CUTTER HAND) Anatomical Region Laterality Modality Wrist, Right Wrist Right Digital Radio graphy 06/01/2024 9:53 AM CANDY CUTTER HAND Impressions 06/01/2024 9:58 AM CANDY CUTTER HAND IMPRESSION: Normal joint spaces and alignment. No fracture. Narrative 06/01/2024 9:58 AM CANDY CUTTER HAND EXAM: XR WRIST RIGHT G/E 3 VIEWS, XR HAND RIGHT G/E 3 VIEWS LOCATION: [facility] DATE: 06/01/2024 INDICATION: trauma, dorsal swelling COMPARISON: None. Procedure Note Carlos Montoya MD - 06/01/2024 EXAM: XR WRIST RIGHT G/E 3 VIEWS, XR HAND RIGHT G/E 3 VIEWS LOCATION: [facility] DATE: 06/01/2024 INDICATION: trauma, dorsal swelling COMPARISON: None. IMPRESSION: Normal joint spaces and alignment. No fracture. Alyson Swartz PA-C [facility] RDERABLES Final Result * XR Hand Right G/E 3 Views (06/01/2024 9:53 AM CANDY CUTTER HAND) Anatomical Region Laterality Modality Hand, Wrist Right Digital Radiogra phy 06/01/2024 9:53 AM CANDY CUTTER HAND Impressions 06/01/2024 9:58 AM CANDY CUTTER HAND IMPRESSION: Normal joint spaces and alignment. No fracture. Narrative 06/01/2024 9:58 AM CANDY CUTTER HAND EXAM: XR WRIST RIGHT G/E 3 VIEWS, XR HAND RIGHT G/E 3 VIEWS LOCATION: [facility] DATE: 06/01/2024 INDICATION: trauma, dorsal swelling COMPARISON: None. Procedure Note Carlos Montoya MD - 06/01/2024 EXAM: XR WRIST RIGHT G/E 3 VIEWS, XR HAND RIGHT G/E 3 VIEWS LOCATION: [facility] DATE: 06/01/2024 INDICATION: trauma, dorsal swelling COMPARISON: None. IMPRESSION: Normal joint spaces and alignment. No fracture. Alyson Swartz PA-C [facility] RDFELIPA Final Result * Hepatitis C Screen Reflex to HCV RNA Quant and Genotype (07/02/2021 4:49 PM CANDY CUTTER HAND) Hepatitis C Antibody Nonreactive Nonreactive 07/03/2021 7:21 PM CANDY CUTTER HAND [facility] DO Blood STRUCTURE OF RIGHT UPPER LIMB / Unknown Venipuncture / Unknown 07/02/2021 4:49 PM CANDY CUTTER HAND 07/02/2021 4:49 PM CANDY CUTTER HAND Narrative [facility] - 07/03/2021 7:21 PM CANDY CUTTER HAND Assay performance characteristics have not been established for newborns, infants, and children. Sonya Smith MATERIAL HANDLING EQUIPMENT STEVEDORE COUNSELOR AT LAW LAB - BLOOD ORDERABLES Final Result [facility]Endo [address] [facility], Room [address] [place] [address], [facility] [phone] * (ABNORMAL) Comprehensive metabolic panel (BMP + Alb, Alk Phos, ALT, AST, Total. Bili, TP) (12/03/2020 10:01 AM CDT) Sodium 140 133 - 144 mmol/L 12/03/2020 2:39 PM CDT [facility] Potassium 4.0 3.4 - 5.3 mmol/L 12/03/2020 2:39 PM CDT [facility] Chloride 111(H) 94 - 109 mmol/L 12/03/2020 2:39 PM CDT [facility] Carbon Dioxide (CO2) 28 20 - 32 mmol/L 12/03/2020 2:39 PM CDT [facility] Anion Gap 1(L) 3 - 14 mmol/L 12/03/2020 2:39 PM CDT [facility] Urea Nitrogen 11 7 - 30 mg/dL 12/03/2020 2:39 PM CDT [facility] Creatinine 0.74 0.52 - 1.04 mg/dL 12/03/2020 2:39 PM CDT [facility] Calcium 9.6 8.5 - 10.1 mg/dL 12/03/2020 2:39 PM CDT [facility] Glucose 86 70 - 99 mg/dL 12/03/2020 2:39 PM CDT [facility] Alkaline Phosphatase 70 40 - 150 U/L 12/03/2020 2:39 PM CDT [facility] AST 12 0 - 45 U/L 12/03/2020 2:39 PM CDT [facility] ALT 27 0 - 50 U/L 12/03/2020 2:39 PM CDT [facility] Protein Total 7.7 6.8 - 8.8 g/dL 12/03/2020 2:39 PM CDT [facility] Albumin 4.3 3.4 - 5.0 g/dL 12/03/2020 2:39 PM CDT [facility] Bilirubin Total 0.3 0.2 - 1.3 mg/dL 12/03/2020 2:39 PM CDT [facility] GFR Estimate >90 >60 mL/min/1.7 3m2 12/03/2020 2:39 PM CDT [facility] Comment:As of November 10, 2020, eGFR is calculated by the CKD-EPI creatinine equation, without race adjustment. eGFR can be influenced by muscle mass, exercise, and diet. The reported eGFR is an estimation only and is only applicable if the renal function is stable. Blood STRUCTURE OF RIGHT UPPER LIMB / Unknown Venipuncture / Unknown 12/03/2020 10:01 AM CDT 12/03/2020 10:02 AM CDT us Brigitte Acevedo APRN COUNSELOR AT LAW LAB - BLOOD ORDERABLES Final Result [facility] [address] Lab (no room number, 1st floor of clinic) [place] [address], [facility] [phone] * ABSTRACT HPV-NO CHARGE (10/25/2015) HPV Abstract See Scanned Document [facility] 10/25/2015 Narrative [facility] - 10/25/2015 RESULTS FOUND IN CARE EVERYWHERE [facility] us Provider Outside LAB - HIM EXTERNAL RESULT Final Result [facility] [address] [place] [address], [facility] * ABSTRACT PAP-NO CHARGE (10/25/2015) PAP-ABSTRACT See Scanned Document [facility] 10/25/2015 Narrative [facility] - 10/25/2015 RESULTS FOUND IN CARE EVERYWHERE [facility] us Provider Outside LAB - HIM EXTERNAL RESULT Final Result [facility] [address] * HIV 1 & 2, SCREEN (08/07/2008 10:08 AM CDT) HIV 1&[address]G [facility] 08/07/2008 10:0 8 AM CDT 08/07/2008 10:13 AM CDT us Yang Romero MD LABORATORY Final Resul t [facility] [address] [place] [address] from Last 3 Months or Most Recently Relevant to Health Maintenance Care Teams Clinical Dental Technician Relationship Specialty Start Date End Date No Ref-Primary, Physician PCP - General 06/01/24 Sonya Smith APRN COUNSELOR AT LAW [address] [place] [address] Assigned PCP 09/23/23
--- OUTSIDE RECORDS SUMMARY | 2024-07-11 16:57 | XMS_ITS | Encounter Summary ---
Author Organization [facility] Address [address] [place] [address] Care Team Providers Care Bicycle Mechanic Name Role Phone Sonya Smith APRN WET PLANT OPERATOR Unavailable [phone] No Ref-Primary, Physician Primary Care Provider Encounter Details Date Type Department Care Team (Latest Contact Info) Description 06/01/2024 Travel Social History Tobacco Use Types Packs/Day Years [...] on file Legal Sex Female 3:14 AM CASER UP Gender Identity Not on file Sexual Orientation Not on file documented as of this encounter Plan of Treatment Not on file documented as of this encounter Visit Diagnoses Not on filedocumented in this encounter Additional Health Concerns Assessment Noted Time PHQ-9 Depression Total Score: 0 06/24/19 22 1:03 PM CASER UP documented as of this encounter Care Teams Bicycle Mechanic Relationship Specialty Start Date End Date No Ref-Primary, Physician PCP - General 06/01/24 Sonya Smith APRN CNP [address] [place] [address] Assigned PCP 09/23/23 documented as of this encounter
[2024-07-11 17:03] VITALS: BP 133/84; PULSE 101; RESP 18; TEMP 37.1; O2SAT 99; BMI 38.3
--- OUTSIDE RECORDS SUMMARY | 2024-07-11 19:22 | XMS_ITS | Clinical Summary ---
Author Organization [facility] Address [address] [place] [address] Care Team Providers Care Sleeve Presser Operator Name Role Phone Sonya Smith APRN FABRIC WORKER FOREMAN Unavailable [phone] No Ref-Primary, Physician Primary Care Provider Allergies [...] Bilateral. Assessment & Plan (07/06/2021 7:12 PM BRICKMASON APPRENTICE): Bilateral leg contusions lower leg. Seen at ED with X-rays that were negative. Has been going to work. 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 [...] Department Care Team Description 06/01/2024 9:10 AM BRICKMASON APPRENTICE - 06/01/2024 10:29 AM BRICKMASON APPRENTICE Emergency [facility] Emergency Dept [address] [place] [address] Alyson Swartz, SIERRA Pain in both wrists; [...] on file Legal Sex Female 3:14 AM BRICKMASON APPRENTICE Gender Identity Not on file Sexual Orientation Not on file Last Filed Vital Signs Vital Sign Reading Time Taken Comments Blood Pressure 123/68 06/01/2024 10:28 AM BRICKMASON APPRENTICE Pulse 74 06/01/2024 10:28 AM BRICKMASON APPRENTICE Temperature 36.8 C (98.2 F) 06/01/2024 8:49 AM BRICKMASON APPRENTICE Respiratory Rate 18 06/01/2024 10:28 AM BRICKMASON APPRENTICE Oxygen Saturation 99% 06/01/2024 10:28 AM BRICKMASON APPRENTICE Inhaled Oxygen Concentration - - Weight 98 kg (216 lb 0.8 oz) 06/01/2024 8:49 AM BRICKMASON APPRENTICE Height 160 cm (5' 3) 06/01/2024 8:49 AM BRICKMASON APPRENTICE Body Mass Index 38.27 06/01/2024 8:49 AM BRICKMASON APPRENTICE Plan of Treatment Health Maintenance Due Date [...] G/E 3 VIEWS STAT 06/01/2024 9:53 AM BRICKMASON APPRENTICE XR HAND RIGHT G/E 3 VIEWS STAT 06/01/2024 9:53 AM BRICKMASON APPRENTICE HEPATITIS C SCREEN REFLEX TO HCV RNA QUANT AND GENOTYPE Routine 07/02/2021 4:49 PM BRICKMASON APPRENTICE Routine general medical examination at a [facility] facility COMPREHENSIVE METABOLIC PANEL Routine 12/03/2020 10:01 AM CDT RUQ abdominal pain ABSTRACT PAP ([facility] EXTERNAL RESULT) Routine 10/25/2015 ABSTRACT HPV ([facility] EXTERNAL RESULT) Routine 10/25/2015 HCL HIV 1 & 2 ANTIBODY Routine 9 10:08 AM CDT Supervision of Other Normal from Last 3 Months or Most Recently Relevant to Health Maintenance Results * XR Wrist Right G/E 3 Views (06/01/2024 9:53 AM BRICKMASON APPRENTICE) Anatomical Region Laterality Modality Wrist, Right Wrist Right Digital Radio graphy 06/01/2024 9:53 AM BRICKMASON APPRENTICE Impressions 06/01/2024 9:58 AM BRICKMASON APPRENTICE IMPRESSION: Normal joint spaces and alignment. No fracture. Narrative 06/01/2024 9:58 AM BRICKMASON APPRENTICE EXAM: XR WRIST RIGHT G/E 3 VIEWS, XR HAND RIGHT G/E 3 VIEWS LOCATION: [facility] DATE: 06/01/2024 INDICATION: trauma, dorsal swelling COMPARISON: None. Procedure Note Carlos Montoya MD - 06/01/2024 EXAM: XR WRIST RIGHT G/E 3 VIEWS, XR HAND RIGHT G/E 3 VIEWS LOCATION: [facility] DATE: 06/01/2024 INDICATION: trauma, dorsal swelling COMPARISON: None. IMPRESSION: Normal joint spaces and alignment. No fracture. Alyson Swartz PA-C [facility] O RDERABLES Final Result * XR Hand Right G/E 3 Views (06/01/2024 9:53 AM BRICKMASON APPRENTICE) Anatomical Region Laterality Modality Hand, Wrist Right Digital Radiogra phy 06/01/2024 9:53 AM BRICKMASON APPRENTICE Impressions 06/01/2024 9:58 AM BRICKMASON APPRENTICE IMPRESSION: Normal joint spaces and alignment. No fracture. Narrative 06/01/2024 9:58 AM BRICKMASON APPRENTICE EXAM: XR WRIST RIGHT G/E 3 VIEWS, XR HAND RIGHT G/E 3 VIEWS LOCATION: [facility] DATE: 06/01/2024 INDICATION: trauma, dorsal swelling COMPARISON: None. Procedure Note Carlos Montoya MD - 06/01/2024 EXAM: XR WRIST RIGHT G/E 3 VIEWS, XR HAND RIGHT G/E 3 VIEWS LOCATION: [facility] DATE: 06/01/2024 INDICATION: trauma, dorsal swelling COMPARISON: None. IMPRESSION: Normal joint spaces and alignment. No fracture. Alyson Swartz PA-C [facility] O RDEFLIPA Final Result * Hepatitis C Screen Reflex to HCV RNA Quant and Genotype (07/02/2021 4:49 PM BRICKMASON APPRENTICE) Hepatitis C Antibody Nonreactive Nonreactive 07/03/2021 7:21 PM BRICKMASON APPRENTICE [facility]EN DO Blood STRUCTURE OF RIGHT UPPER LIMB / Unknown Venipuncture / Unknown 07/02/2021 4:49 PM BRICKMASON APPRENTICE 07/02/2021 4:49 PM BRICKMASON APPRENTICE Narrative [facility]/PROT/ENDO - 07/03/2021 7:21 PM BRICKMASON APPRENTICE Assay performance characteristics have not been established for newborns, infants, and children. Sonya Smith HOME PLANNING CONSULTANT SALESPERSON FABRIC WORKER FOREMAN LAB - BLOOD ORDERABLES Final Result [facility]PROT/ENDO [facility]/Prot/Endo [address] [facility], Room [address] [place] [address], [facility] [phone] * (ABNORMAL) Comprehensive metabolic panel (BMP + [...] 10:02 AM CDT us Brigitte Acevedo APRN FABRIC WORKER FOREMAN LAB - BLOOD ORDERABLES Final Result [facility] [address] Lab (no room number, 1st floor of clinic) [place] [address], [facility] [phone] * ABSTRACT HPV-NO CHARGE (10/25/2015) HPV Abstract See Scanned Document [facility] 10/25/2015 Narrative [facility] - 10/25/2015 RESULTS FOUND IN CARE EVERYWHERE [facility] us Provider Outside LAB - HIM EXTERNAL RESULT Final Result [facility] [address] [place] [address], [facility] * ABSTRACT PAP-NO CHARGE (10/25/2015) PAP-ABSTRACT See Scanned Document [facility] 10/25/2015 Narrative [facility] - 10/25/2015 RESULTS FOUND IN CARE EVERYWHERE [facility] us Provider Outside LAB - HIM EXTERNAL RESULT Final Result [facility] [address] * HIV 1 & 2, SCREEN (08/07/2008 10:08 AM CDT) HIV 1&2 Antibody Negative NEG [facility] 08/07/2008 10:0 8 AM CDT 08/07/2008 10:13 AM CDT us Yang Romero MD LABORATORY Final Resul t [facility] [address] [place] [address] from Last 3 Months or Most Recently Relevant to Health Maintenance Care Teams Sleeve Presser Operator Relationship Specialty Start Date End Date No Ref-Primary, Physician PCP - General 06/01/24 Sonya Smith APRN FABRIC WORKER FOREMAN [address] [place] [address] Assigned PCP 09/23/23
--- OUTSIDE RECORDS SUMMARY | 2024-07-11 19:22 | XMS_ITS | Clinical Summary ---
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 09/04/2017 11/01/2017 suspected macrosomia, Polyhydramnios delivered 09/04/2017 11/01/2017 Overview (09/05/2017): increased risk cord prolapse, and shoulder dystocia Maternal morbid obesity, antepartum, BMI 40 09/04/2017 11/01/2017 -induced glucose intolerance 09/04/2017 11/01/2017 Overview (09/05/2017): high one glucoses x 2, possible late onset GDM Supervision of high-risk 07/09/2017 11/01/2017 Overview (09/02/2017): [facility] TESTING ONLY Tabby NEXT VISIT ALERTS: polyhydramnios-Had amnio reduction 08/11/[address] [place] [address] Syed 08/11/17 Microarray sent 09/02 -- PRIMARY OB CALLED WITH EFW OF 4700g. Patient considering elective primary CS. She will come to [place] as planned for IOL on 09/04 but will be NPO, will awake overnight counselor patient at that time and make final mode of delivery decision. Anesthesia and charge rn notified by John Roche 09/02 FUTURE APPOINTMENTS: [...] You REFERRING PHYSICIAN/PHONE/LAST UPDATE: Dr. Vinh You [phone] Primary MD approves scheduling of recommended ultrasounds/testing: yes SPECIALISTS/PHONE: Neurology consult ordered due to questionable seizure PUNEET: CARE COORDINATION: PERTINENT LABS: PERTINENT MEDS: 07/27/17 & 07/28/17 Betamethasone given MD PLAN OF CARE: CHECKLIST FOR SCHEDULING PROCEDURES: Call [phone] for [place] and [phone] for [employer] (UTD cerclages Day Surgery [id number]) Procedure: Induction Hospital: [place] Unit: L&D Date & Time of procedure: Wednesday, September 04, 2017 0700 Brown Score if induction: TBD at closer date Pertinent information: polyhydramnios and macrosomia Gestational age on procedure date? 39w0d MD doing procedure: [facility] MM Date scheduled: 08/27/2017 when patient was 37w6d. Scheduling MD & RN: [place] and [place] Notifications: Hospitalist Delivery-OBH personal injury legal assistant notified through [employer] inbox? Yes [facility] MD personal injury legal assistant notified via [employer] inbox? Yes Primary MD notified via [employer] inbox? Yes Primary MD clinic called if not Manisha? Not Applicable On [facility] calendar? Yes Care Coordination notified? Not Applicable H&P/PPTL: PPTL permit signed? Not Applicable H&P and Plan in chart? Not Applicable [facility] appointment made for H&P with ASSISTANT LABORATORY DIRECTOR within 7 days of surgical procedure? Not [...] Diagnosed at 20w Ultrasound. Per consultation with [facility] 07/12/2012: very small risk of genetic [...] on file Legal Sex Female 5:25 AM GLOVE SEWER Gender Identity Not on file Sexual Orientation [...] M Vag Livin g Miko nt Delivery Location:[place], [place] 2004 SAB 6w0 d SPONTA [...] al Livin g Obdulia n Klebs Delivery Location:[place] 2010 Term 39w 1d 3.69 kg (8 lb 2 oz) F Vag Livin g Rhlea Dewit t Delivery Location:[place] 2011 SAB 2012 Term 41w 0d 3.94 kg (8 lb 11 oz) M Vag Livin g 7 9 KISHORE JULES JR. Delivery Location:[facility] 2013 SAB 7 AB 6w0 d SPONTA [...] CDT Supervision of normal first , antepartum SUPERVISOR INSECTICIDE THIN PREP PAP DIAGNOSTIC IMAGED Routine 10/25/2015 4:59 PM CDT Cervical cancer screening from Last 3 Months or Most Recently Relevant to Health Maintenance Results * ANTI HCV (01/06/2017 1:54 PM CDT) HEPATITIS C ANTIBODY Non-Reacti ve Non-Reacti ve 01/06/2017 10:41 PM CDT [facility] Blood BLOOD SPECIMEN / Unknown Venipuncture / Unknown 01/06/2017 1:54 PM CDT 01/06/2017 1:54 PM CDT [facility] LABORATORY - 01/06/2017 10:41 PM CDT Antibodies to HCV not detected; does not exclude the possibility of exposure to HCV. Daniela GAO SEND OUTS Final R esult Performing Organization Address City/[facility]/ZIP Co de Phone Number [facility] [address] [place] [address], [place] * ANTI HIV 1/2 (01/06/2017 1:54 PM CDT) Pathologist [facility] HIV-1/HIV-2 ANTIBODY Non-Reacti ve Non-Reacti ve 01/06/2017 10:23 PM CDT [facility] Blood BLOOD SPECIMEN / Unknown Venipuncture / Unknown 01/06/2017 1:54 PM CDT 01/06/2017 1:54 PM CDT Narrative [facility] - 01/06/2017 10:23 PM CDT HIV-1 p24 and HIV-1/HIV-2 Ab not detected Daniela GAO SEND OUTS Final R esult [facility] [address] [place] [address], [place] * SUPERVISOR INSECTICIDE THIN PREP PAP DIAGNOSTIC IMAGED (10/25/2015 4:59 PM CDT) SUPERVISOR INSECTICIDE CYTOLOGY See Anatomic Pathology case 10/26/2015 5:00 PM CDT [facility] Other (Cervical) Non-Blood / Unknown 10/25/2015 4:59 PM CDT 10/25/2015 4:59 PM CDT us Franc Chatman NP PATHOLOGY/CYTOLOGY Final Result [facility] [address] [place] [address], [place] from Last 3 Months or Most [...] 8:42 PM 11/12/2012 9:31 PM Care Teams Under Presser Relationship Specialty Start Date End Date Pcp, No . PCP - General 12/09/18 Catherine Liang MD [address] [place] [address] Rheumatology Rheumatology 12/31/15
--- OUTSIDE RECORDS SUMMARY | 2024-07-11 19:22 | XMS_ITS | Encounter Summary ---
Author Organization [facility] Address [address] [place] [address] Care Team Providers Care Receiving Teller Name Role Phone [facility], [facility] Primary Care Provider Brigitte Acevedo APRN CAREER DEVELOPMENT DIRECTOR Unavailable [phone] No Ref-Primary, Physician Primary Care Provider Anmol Cruz MD Unavailable Sonya Smith APRN CAREER DEVELOPMENT DIRECTOR Primary Care Provider Sonya Smith APRN CAREER DEVELOPMENT DIRECTOR Unavailable [phone] Dipak Villegas MD Unavailable [phone] Fredo Culver MD Unavailable Sonya Smith APRN CAREER DEVELOPMENT DIRECTOR Unavailable [phone] No Ref-Primary, Physician Primary Care Provider Encounter [...] on file Legal Sex Female 3:14 AM MANAGER POST Gender Identity Not on file Sexual Orientation [...] on filedocumented in this encounter Care Teams Receiving Teller Relationship Specialty Start Date End Date [facility], [address] [address] PCP - General 01/11/17 06/14/21 No Ref-Primary, Physician PCP - General 06/15/21 07/11/21 Sonya Smith APRN CAREER DEVELOPMENT DIRECTOR [address] [place] [address] PCP - General Family Practice 07/12/21 05/31/24 No Ref-Primary, Physician PCP - General 06/01/24 Brigitte Acevedo APRN CAREER DEVELOPMENT DIRECTOR [address] [place] [address] Assigned PCP 12/08/20 07/12/21 Anmol Cruz MD [address] [place] [address] [address] [place] [address] Assigned Musculoskeletal Provider 06/22/21 12/25/22 Sonya Smith APRN CAREER DEVELOPMENT DIRECTOR [address] [place] [address] Assigned PCP 07/13/21 01/08/23 Dipak Villegas MD [address] [place] [address] Assigned OBGYN Provider 03/28/22 [place] [address] [facility] [place] [address] Assigned PCP 01/09/23 09/22/23 Sonya Smith APRN CAREER DEVELOPMENT DIRECTOR [address] [facility] [place] [address] Assigned PCP 09/23/23 documented as of this encounter
--- OUTSIDE RECORDS SUMMARY | 2024-07-11 19:22 | XMS_ITS | Encounter Summary ---
Author Organization [facility] Address [address] [place] [address] Care Team Providers Care Scow Captain Name Role Phone Anmol Cruz MD Unavailable Sonya Smith APRN JACKER Primary Care Provider Sonya Smith APRN JACKER Unavailable [phone] Dipak Villegas MD Unavailable + [phone] Fredo Culver MD Unavailable Sonya Smith APRN JACKER Unavailable [phone] No Ref-Primary, Physician Primary Care Provider Encounter Details Date Type Department Care Team (Late st Contact Info) Description 03/24/2022 [facility] Medical Advice [facility] Women's [address] [place] [phone] Dipak Villegas MD [address] [place], [place] [id number] Social History Tobacco Use Types Packs/Day Years Used Date Smoking Tobacco: Every Day Cigarettes Smokeless Tobacco: Never Alcohol Use Standard Drinks/Week Comments No 0 (1 standard drink = 0.6 oz pur e alcohol) occasional PHQ-2 Answer Date Recorded PHQ-2 Score 0 07/02/2021 Comments No Sex and Gender Information Value Date Recorded Sex Assigned at Not on file Legal Sex Female 3:14 AM TANK BUILDER HELPER Gender Identity Not on file Sexual Orientation Not on file COVID-19 Exposure Response Date Recorded In the last 10 days, have yo u been in contact with someone who was confirmed or suspected to have Coronavirus/COVID-19? No / Unsure 03/24/2022 8:49 AM TANK BUILDER HELPER documented as of this encounter Miscellaneous Notes * Telephone Encounter - Adrianna Escamilla RN - 03/24/2022 2:46 PM CST Pt advised via my chart. Samaria Escamilla RN BUILDER HELPER * Telephone Encounter - Dipak Villegas MD - 03/24/2022 2:40 PM TANK BUILDER HELPER I would advise her to return to [...] go forward with it. Dipak Villegas MD BUILDER HELPER * Telephone Encounter - Adrianna Escamilla RN - 03/24/2022 1:04 PM CST Please address the my chart message. Last OV 03/20/22. Pelvic US was done on 03/24/22. Samaria Escamilla RN BUILDER HELPER documented in this encounter Plan of Treatment Not on file documented as of this encounter Visit Diagnoses Not on filedocumented in this encounter Additional Health Concerns Assessment Noted Time PHQ-9 Depression Total Score: 0 06/24/19 1:03 PM TANK BUILDER HELPER documented as of this encounter Care Teams Scow Captain Relationship Specialty Start Date End Date Sonya Smith APRN JACKER [address] [place] [address] PCP - General Family Practice 07/12/21 05/31/24 No Ref-Primary, Physician PCP - General 06/01/24 Anmol Cruz MD [address] [facility] 292 [place], [place] [address] Assigned Musculoskeletal Provider 06/22/21 12/25/22 Sonya Smith APRN JACKER [address] [place] [address] Assigned PCP 07/13/21 01/08/23 Dipak Villegas MD [address] [place] [address] Assigned OBGYN Provider 03/28/22 [place] [address] [place] [address] Assigned PCP 01/09/23 09/22/23 Sonya Smith APRN JACKER [address] [place] [address] Assigned PCP 09/23/23 documented as of this encounter
--- OUTSIDE RECORDS SUMMARY | 2024-07-11 19:22 | XMS_ITS | Encounter Summary ---
Author Organization [facility] Address [address] [place] [address] Care Team Providers Care Concrete Puddler Name Role Phone Sonya Smith APRN BARREL BURNER Primary Care Provider Dipak Villegas MD Unavailable [phone] Fredo Culver MD Unavailable Sonya Smith APRN BARREL BURNER Unavailable [phone] No Ref-Primary, Physician Primary Care Provider Encounter Details Date Type Department Care Team (Late st Contact Info) Description 04/01/2023 [facility] Medical Advice [address] [address] Nate Yost, EDGARDO Social History [...] on file Legal Sex Female 3:14 AM BUREAU CHIEF Gender Identity Not on file Sexual Orientation Not on file documented as of this encounter Plan of Treatment Not on file documented as of this encounter Visit Diagnoses Not on filedocumented in this encounter Additional Health Concerns Assessment Noted Time PHQ-9 Depression Total Score: 0 06/24/19 22 1:03 PM BUREAU CHIEF documented as of this encounter Care Teams Concrete Puddler Relationship Specialty Start Date End Date Sonya Smith APRN BARREL BURNER [address] [place] [address] PCP - General Family Practice 07/12/21 05/31/24 No Ref-Primary, Physician PCP - General 06/01/24 Dipak Villegas MD [address] [place] [address] Assigned OBGYN Provider 03/28/22 [place] [address] [place] [address] Assigned PCP 01/09/23 09/22/23 Sonya Smith APRN BARREL BURNER [address] [place] [address] Assigned PCP 09/23/23 documented as of this encounter
--- OUTSIDE RECORDS SUMMARY | 2024-07-11 19:22 | XMS_ITS | Encounter Summary ---
Author Organization [facility] Address [address] [place] [address] Care Team Providers Care Senior Environmental Technician Name Role Phone Anmol Cruz MD Unavailable Sonya Smith APRN PULVI MIXER OPERATOR Primary Care Provider Sonya Smith APRN PULVI MIXER OPERATOR Unavailable [phone] Dipak Villegas MD Unavailable + [phone] Fredo Culver MD Unavailable Sonya Smith APRN PULVI MIXER OPERATOR Unavailable [phone] No Ref-Primary, Physician Primary Care Provider Encounter Details Date Type Department Care Team (Late st Contact Info) Description 03/24/2022 My[facility] Medical Advice [facility] Women's [address] [place] [address] Starr Mendoza Social History Tobacco [...] on file Legal Sex Female 3:14 AM MILIEU COUNSELOR Gender Identity Not on file Sexual Orientation Not on file COVID-19 Exposure Response Date Recorded In the last 10 days, have yo u been in contact with someone who was confirmed or suspected to have Coronavirus/COVID-19? No / Unsure 03/24/2022 8:49 AM MILIEU COUNSELOR documented as of this encounter Plan of Treatment Not on file documented as of this encounter Visit Diagnoses Not on filedocumented in this encounter Additional Health Concerns Assessment Noted Time PHQ-9 Depression Total Score: 0 06/24/19 1:03 PM MILIEU COUNSELOR documented as of this encounter Care Teams Senior Environmental Technician Relationship Specialty Start Date End Date Sonya Smith APRN PULVI MIXER OPERATOR [address] [place] [address] PCP - General Family Practice 07/12/21 05/31/24 No Ref-Primary, Physician PCP - General 06/01/24 Anmol Cruz MD [address] [place] [address] [address] [place] [address] Assigned Musculoskeletal Provider 06/22/21 12/25/22 Sonya Smith APRN PULVI MIXER OPERATOR [address] [place] [address] Assigned PCP 07/13/21 01/08/23 Dipak Villegas MD [address] [place] [address] Assigned OBGYN Provider 03/28/22 [place] [address] [place] [address] Assigned PCP 01/09/23 09/22/23 Sonya Smith APRN PULVI MIXER OPERATOR [address] [facility] [address] Assigned PCP 09/23/23 documented as of this encounter
--- OUTSIDE RECORDS SUMMARY | 2024-07-11 19:22 | XMS_ITS | Encounter Summary ---
Author Organization [facility] Address [address] [place] [address] Care Team Providers Care Glass Cutting Machine Operator Name Role Phone Sonya Smith APRN GRIT BLASTER Unavailable [phone] No Ref-Primary, Physician Primary Care Provider Encounter [...] on file Legal Sex Female 3:14 AM HOSPITAL EDUCATOR Gender Identity Not on file Sexual Orientation Not on file documented as of this encounter Plan of Treatment Not on file documented as of this encounter Visit Diagnoses Not on filedocumented in this encounter Additional Health Concerns Assessment Noted Time PHQ-9 Depression Total Score: 0 06/24/19 22 1:03 PM HOSPITAL EDUCATOR documented as of this encounter Care Teams Glass Cutting Machine Operator Relationship Specialty Start Date End Date No Ref-Primary, Physician PCP - General 06/01/24 Sonya Smith APRN CNP [address] [place] [address] Assigned PCP 09/23/23 documented as of this encounter
--- OUTSIDE RECORDS SUMMARY | 2024-07-11 19:22 | XMS_ITS | Encounter Summary ---
Author Organization [facility] Address [address] [place] [address] Care Team Providers Care Staff Appraiser Name Role Phone Sonya Smith APRN INDIGO MIXER Unavailable [phone] No Ref-Primary, Physician Primary Care Provider Reason for Visit * Reason Comments Wrist Pain Encounter Details Date Type Department Care Team (Late st Contact Info) Description 06/01/2024 9:10 AM REMOTE ENCODING CENTER MANAGER - 06/01/2024 10:29 AM [facility] Emergency [facility] Emergency Dept [address] [place] [address] Alyson Swartz, PA-C [facility] [address] [place] [id number] Pain in both wrists; De Quervain's tenosynovitis, [...] on file Legal Sex Female 3:14 AM REMOTE ENCODING CENTER MANAGER Gender Identity Not on file Sexual Orientation Not on file documented as of this encounter Last Filed Vital Signs Vital Sign Reading Time Taken Comments Blood Pressure 123/68 06/01/2024 10:28 AM REMOTE ENCODING CENTER MANAGER Pulse 74 06/01/2024 10:28 AM REMOTE ENCODING CENTER MANAGER Temperature 36.8 C (98.2 F) 06/01/2024 8:49 AM REMOTE ENCODING CENTER MANAGER Respiratory Rate 18 06/01/2024 10:28 AM REMOTE ENCODING CENTER MANAGER Oxygen Saturation 99% 06/01/2024 10:28 AM REMOTE ENCODING CENTER MANAGER Inhaled Oxygen Concentration - - Weight 98 kg (216 lb 0.8 oz) 06/01/2024 8:49 AM REMOTE ENCODING CENTER MANAGER Height 160 cm (5' 3) 06/01/2024 8:49 AM REMOTE ENCODING CENTER MANAGER Body Mass Index 38.27 06/01/2024 8:49 AM REMOTE ENCODING CENTER MANAGER documented in this encounter Discharge Instructions * Discharge Instructions* Alyson Swartz PA-C - 06/01/2024 10:15 AM REMOTE ENCODING CENTER MANAGER Take 1000 mg of Tylenol every ~6 [...] symptoms. Follow-up with orthopedics for definitive management TE ENCODING CENTER MANAGER TE ENCODING CENTER MANAGER * Attachments The following attachments cannot be sent through Care Everywhere. * De Quervain's Disease: Exercises (Cymro) * Wrist Tendinitis Exercises (Cymro) * De Quervain's: Tenosynovitis (Cymro) documented in this encounter Medications at Time [...] and de Quervain's tenosynovitis. 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 [...] I reviewed the patient's ED note from [facility] 10/06/2023 when seen for de Quervain's tenosynovitis [...] 3:14 PM Alyson Swartz PA-C 06/01/24 1514 TE ENCODING CENTER MANAGER * Sheela Newton RN - 06/01/2024 8:50 [...] WDL WDL Cognitive/Neuro/Behavioral WDL Cognitive/Neuro/Behavioral WDL WDL TE ENCODING CENTER MANAGER documented in this encounter Plan of Treatment Not on file documented as of this encounter Procedures Procedure Name Priority Date/Time Associated Diagnosis Comments XR WRIST RIGHT G/E 3 VIEWS STAT 06/01/2024 9:53 AM REMOTE ENCODING CENTER MANAGER XR HAND RIGHT G/E 3 VIEWS STAT 06/01/2024 9:53 AM REMOTE ENCODING CENTER MANAGER documented in this encounter Results * XR Wrist Right G/E 3 Views (06/01/2024 9:53 AM REMOTE ENCODING CENTER MANAGER) Anatomical Region Laterality Modality Wrist, Right Wrist Right Digital Radio graphy 06/01/2024 9:53 AM REMOTE ENCODING CENTER MANAGER Impressions 06/01/2024 9:58 AM REMOTE ENCODING CENTER MANAGER IMPRESSION: Normal joint spaces and alignment. No fracture. Narrative 06/01/2024 9:58 AM REMOTE ENCODING CENTER MANAGER EXAM: XR WRIST RIGHT G/E 3 VIEWS, XR HAND RIGHT G/E 3 VIEWS LOCATION: [facility] DATE: 06/01/2024 INDICATION: trauma, dorsal swelling COMPARISON: None. Procedure Note Carlos Montoya MD - 06/01/2024 EXAM: XR WRIST RIGHT G/E 3 VIEWS, XR HAND RIGHT G/E 3 VIEWS LOCATION: [facility] DATE: 06/01/2024 INDICATION: trauma, dorsal swelling COMPARISON: None. IMPRESSION: Normal joint spaces and alignment. No fracture. Alyson Swartz PA-C [facility] O RDERABLES Final Result * XR Hand Right G/E 3 Views (06/01/2024 9:53 AM REMOTE ENCODING CENTER MANAGER) Anatomical Region Laterality Modality Hand, Wrist Right Digital Radiogra phy 06/01/2024 9:53 AM REMOTE ENCODING CENTER MANAGER Impressions 06/01/2024 9:58 AM REMOTE ENCODING CENTER MANAGER IMPRESSION: Normal joint spaces and alignment. No fracture. Narrative 06/01/2024 9:58 AM REMOTE ENCODING CENTER MANAGER EXAM: XR WRIST RIGHT G/E 3 VIEWS, XR HAND RIGHT G/E 3 VIEWS LOCATION: [facility] DATE: 06/01/2024 INDICATION: trauma, dorsal swelling COMPARISON: None. Procedure Note Carlos Montoya MD - 06/01/2024 EXAM: XR WRIST RIGHT G/E 3 VIEWS, XR HAND RIGHT G/E 3 VIEWS LOCATION: [facility] DATE: 06/01/2024 INDICATION: trauma, dorsal swelling COMPARISON: [...] Total Score: 0 06/24/19 22 1:03 PM REMOTE ENCODING CENTER MANAGER documented as of this encounter Care Teams Staff Appraiser Relationship Specialty Start Date End Date No Ref-Primary, Physician PCP - General 06/01/24 Sonya Smith APRN INDIGO MIXER [address] [place] [address] Assigned PCP 09/23/23 documented as of this encounter
--- OUTSIDE RECORDS SUMMARY | 2024-07-11 19:23 | XMS_ITS | Encounter Summary ---
Author Organization [facility] Address [address] [place] [address] Care Team Providers Care Weigher Production Name Role Phone Brigitte Acevedo APRN, CNP Unavailable [phone] Anmol Cruz MD Unavailable Sonya Smith APRN, CNP Primary Care Provider Sonya Smith APRN, CNP Unavailable [phone] Dipak Villegas MD Unavailable + [phone] Fredo Culver MD Unavailable Sonya Smith APRN, CNP Unavailable [phone] No Ref-Primary, Physician Primary Care Provider Encounter [...] on file Legal Sex Female 3:14 AM MARKER DELIVERY Gender Identity Not on file Sexual Orientation Not on file COVID-19 Exposure Response Date Recorded In the last month, have you been in contact with someone who was confirmed or suspected to have Coronavirus / COVID-19? No / Unsure 07/12/2021 10:18 AM MARKER DELIVERY documented as of this encounter Plan of Treatment Not on file documented as of this encounter Visit Diagnoses Not on filedocumented in this encounter Additional Health Concerns Assessment Noted Time PHQ-9 Depression Total Score: 0 06/24/19 22 1:03 PM MARKER DELIVERY documented as of this encounter Care Teams Weigher Production Relationship Specialty Start Date End Date Sonya Smith APRN QUARTZ CUTTER [address] [place] [address] PCP - General Family Practice 07/12/21 05/31/24 No Ref-Primary, Physician PCP - General 06/01/24 Brigitte Acevedo APRN QUARTZ CUTTER [address] [place] [id number] Assigned PCP 12/08/20 07/12/21 Anmol Cruz MD [address] [place] [address] Assigned Musculoskeletal Provider 06/22/21 12/25/22 Sonya Smith APRN QUARTZ CUTTER [address] [facility] [place] [id number] Assigned PCP 07/13/21 01/08/23 Dipak Villegas MD [address] [place] [address] Assigned OBGYN Provider 03/28/22 [place] [address] [place] [id number] Assigned PCP 01/09/23 09/22/23 Sonya Smith APRN QUARTZ CUTTER [address] [facility] [place] [address] Assigned PCP 09/23/23 documented as of this encounter
--- OUTSIDE RECORDS SUMMARY | 2024-07-11 19:23 | XMS_ITS | Clinical Summary ---
Author Organization [facility] Address [address] [place] [address] Care Team Providers Care Software Licensing Executive Name Role Phone No Primary/Referring, Phy Primary Care Provider Unavailable Source Comments You are receiving this document as you are listed as the primary care provider,follow-up provider, or the patient has been referred to you for consultation.This is in compliance with the Medicare andOhio[facility] Hospital[facility]ane EHR Incentive Program,which states Providers who transition their patient to another setting of careor provider of care or refers their patient to another provider of care shouldprovide summary care record for each transition of care or referral. [facility] Allergies No known active allergies [...] Comments Blood Pressure 102/60 03/15/2020 2:00 PM PRESIDENT FINANCIAL INSTITUTION Pulse 85 03/15/2020 2:00 PM [facility] Temperature 36.9 C (98.5 F) 03/15/2020 2:00 PM [facility] Respiratory Rate 16 06/02/2019 2:04 PM [facility] Oxygen Saturation 98% 03/15/2020 2:00 PM [facility] Inhaled Oxygen Concentration - - Weight 89.4 kg (197 lb) 03/15/2020 2:00 PM [facility] Height 162.6 cm (5' 4) 09/27/2017 5:18 [...] age to complete this topic Care Teams Software Licensing Executive Relationship Specialty Start Date End Date No Primary/Referring, Kirtiy PCP - General 09/27/17
--- OUTSIDE RECORDS SUMMARY | 2024-07-11 19:23 | XMS_ITS | Encounter Summary ---
Author Organization [facility] Address [address] [place] [address] Care Team Providers Care Director Of Social Media Marketing Name Role Phone Jennie Acevedona JESSIE OPHTHALMIC TECHNICIAN APPRENTICE Unavailable [phone] No Ref-Primary, Physician Primary Care Provider Anmol Cruz MD Unavailable Sonya Smith APRN, CNP Primary Care Provider Sonya Smith APRN OPHTHALMIC TECHNICIAN APPRENTICE Unavailable [phone] Dipak Villegas MD Unavailable + [phone] Fredo Culver MD Unavailable Sonya Smith APRN OPHTHALMIC TECHNICIAN APPRENTICE Unavailable [phone] No Ref-Primary, Physician Primary Care Provider Reason for Visit * Reason Onset Date Comments Patient Inquiry 07/07/2021 Encounter Details Date Type Department Care Team (Late st Contact Info) Description 07/07/2021 [facility] Medical Advice [facility] [address] [place] [address] Sonya Smith APRN OPHTHALMIC TECHNICIAN APPRENTICE [address] [place] [address] Patient Inquiry Social History Tobacco [...] on file Legal Sex Female 3:14 AM MATHEMATICS LECTURER Gender Identity Not on file Sexual Orientation Not on file COVID-19 Exposure Response Date Recorded In the last month, have you been in contact with someone who was confirmed or suspected to have Coronavirus / COVID-19? No / Unsure 07/02/2021 3:42 PM MATHEMATICS LECTURER documented as of this encounter Miscellaneous Notes * Telephone Encounter - Brigitte Acevedo Ra, APRN CNP - 07/10/2021 11:00 AM MATHEMATICS LECTURER She should be seen to evaluate, if not in office, in urgent care. EZE EMATICS LECTURER * Telephone Encounter - Stacey Ramachandran RN - 07/09/2021 5:45 PM CST Will route to POD since Abiola Smith is out of the office for the next 2 weeks. Stacey Ramachandran RN EMATICS LECTURER * Telephone Encounter - Azeem Velez RN - 07/08/2021 5:13 PM CST Please see patient MyChart message regarding follow up on leg bump. Last OV w/ V.O. 07/02/21. Please review and advise. Azeem Griffin RN EMATICS LECTURER documented in this encounter Plan of Treatment Not on file documented as of this encounter Visit Diagnoses Not on filedocumented in this encounter Additional Health Concerns Assessment Noted Time PHQ-9 Depression Total Score: 0 06/24/19 1:03 PM MATHEMATICS LECTURER documented as of this encounter Care Teams Director Of Social Media Marketing Relationship Specialty Start Date End Date No Ref-Primary, Physician PCP - General 06/15/21 07/11/21 Sonya Smith APRN OPHTHALMIC TECHNICIAN APPRENTICE [address] [place] [address] PCP - General Family Practice 07/12/21 05/31/24 No Ref-Primary, Physician PCP - General 06/01/24 Brigitte Acevedo APRN OPHTHALMIC TECHNICIAN APPRENTICE [address] [place] [id number] Assigned PCP 12/08/20 07/12/21 Anmol Cruz MD [address] [facility] [address] [place], [place] [address] Assigned Musculoskeletal Provider 06/22/21 12/25/22 Sonya Smith APRN OPHTHALMIC TECHNICIAN APPRENTICE [address] [facility] [place] [place] [id number] Assigned PCP 07/13/21 01/08/23 Dipak Villegas MD [address] [place] [address] Assigned OBGYN Provider 03/28/22 [place] [address] [place] [place] [address] Assigned PCP 01/09/23 09/22/23 Sonya Smith APRN OPHTHALMIC TECHNICIAN APPRENTICE [address] [facility] [place] [id number] Assigned PCP 09/23/23 documented as of this encounter
== END 2024-07-11 19:08 | disposition left against medical advice (07) ==
PROVIDERS: Visit Provider Student in an Organized Health Care Education/Training Program
DX: Z53.21 Procedure and treatment not carried out due to patient leaving prior to being seen by health care provider (principal)
CPT/HCPCS: 99281

== ENCOUNTER 2024-07-12 07:53 | Emergency (ER) | payer SELFPAY ==
--- OUTSIDE RECORDS SUMMARY | 2024-07-12 07:55 | XMS_ITS | Clinical Summary ---
Author Organization [employer] [facility] Address [address] [place] [address] Care Team Providers Care Diesel Bus Mechanic Name Role Phone Catherine Liang MD Unavailable [phone] Pcp, No Primary Care Provider Unavailabl e [...] signed 2017 02/15/2020 Overview (07/01/2018): Updated at [facility] 10/21/17 Primary LST deliver [...] Supervision of high-risk 07/09/2017 11/01/2017 Overview (09/02/2017): [facility] TESTING ONLY Tabby NEXT VISIT ALERTS: polyhydramnios-Had [place]11/17 [place] [facility] [place] Syed 08/11/17 Microarray sent 09/02 -- PRIMARY OB CALLED WITH EFW OF 4700g. Patient considering elective primary CS. She will come to [facility] as planned for IOL on 09/04 but will be NPO, will trauma counsellor patient at that time and make final mode of delivery decision. Anesthesia and supercharger mechanic notified by John Roche 09/02 FUTURE APPOINTMENTS: [...] You REFERRING PHYSICIAN/PHONE/LAST UPDATE: Dr. Vinh You [phone] Primary MD approves scheduling of recommended ultrasounds/testing: yes SPECIALISTS/PHONE: Neurology consult ordered due to questionable seizure PUNEET: CARE COORDINATION: PERTINENT LABS: PERTINENT MEDS: 07/27/17 & 07/28/17 Betamethasone given MD PLAN OF CARE: CHECKLIST FOR SCHEDULING PROCEDURES: Call [phone] for [place] and [phone] for [employer] (UTD cerclages Day Surgery [id number]) Procedure: Induction Hospital: [facility] Unit: L&D Date & Time of procedure: Wednesday, September 04, 2017 0700 Brown Score if induction: TBD at closer date Pertinent information: polyhydramnios and macrosomia Gestational age on procedure date? 39w0d MD doing procedure: OBH MM Date scheduled: 08/27/2017 when patient was 37w6d. 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 Yes [facility] MD wire rope fabrication supervisor notified via [employer] inbox? Yes Primary MD notified via [employer] inbox? Yes Primary MD clinic called if not Manisha? Not Applicable On [facility] calendar? Yes Care Coordination notified? Not Applicable H&P/PPTL: PPTL permit signed? Not Applicable H&P and Plan in chart? Not Applicable [facility] appointment made for H&P with AUTOCUTTER within 7 days of surgical procedure? Not [...] Diagnosed at 20w Ultrasound. Per consultation with [facility] 07/12/2012: very small risk of genetic syndromes [...] on file Legal Sex Female 5:25 AM ENTERPRISE SERVICES MANAGER Gender Identity Not on file Sexual [...] M Vag Livin g Miko nt Delivery Location:[place], [place] [address] SAB 6w0 d SPONTA NEOUS [...] al Livin g Obdulia n Klebs Delivery Location:[place] 2010 Term 39w 1d 3.69 kg (8 lb 2 oz) F Vag Livin g Rhlea Dewit t Delivery Location:[place] 2011 SAB 2012 Term 41w 0d 3.94 kg (8 lb 11 oz) M Vag Livin g 7 9 KISHORE JULES JR. Delivery Location:[facility] 2013 SAB 7 AB 6w0 d [...] CDT Supervision of normal first , antepartum ROD PLACER THIN PREP PAP DIAGNOSTIC IMAGED Routine 10/25/2015 4:59 PM CDT Cervical cancer screening from Last 3 Months or Most Recently Relevant to Health Maintenance Results * ANTI HCV (01/06/2017 1:54 PM CDT) HEPATITIS C ANTIBODY Non-Reacti ve Non-Reacti ve 01/06/2017 10:41 PM CDT [facility] TRAL LABORAT[facility] Blood BLOOD SPECIMEN / Unknown Venipuncture / Unknown 01/06/2017 1:54 PM CDT 01/06/2017 1:54 PM CDT [facility] LABORATORY - 01/06/2017 10:41 PM CDT Antibodies to HCV not detected; does not exclude the possibility of exposure to HCV. Daniela GAO SEND OUTS Final R esult Performing Organization Address City/[facility]/ZIP Co de Phone Number [facility] [address] [place] [address], [place] * ANTI HIV 1/2 (01/06/2017 1:54 PM CDT) Pathologist [facility] HIV-1/HIV-2 ANTIBODY Non-Reacti ve Non-Reacti ve 01/06/2017 10:23 PM CDT [facility] TRAL [facility] Blood BLOOD SPECIMEN / Unknown Venipuncture / Unknown 01/06/2017 1:54 PM CDT 01/06/2017 1:54 PM CDT Narrative [facility] - 01/06/2017 10:23 PM CDT HIV-1 p24 and HIV-1/HIV-2 Ab not detected Daniela GAO SEND OUTS Final R esult [facility] [address] [place] [address], [place] * ROD PLACER THIN PREP PAP DIAGNOSTIC IMAGED (10/25/2015 4:59 PM CDT) ROD PLACER CYTOLOGY See Anatomic Pathology case 10/26/2015 5:00 PM CDT [facility] TRAL LAB[facility]AT[facility] Other (Cervical) Non-Blood / Unknown 10/25/2015 4:59 PM CDT 10/25/2015 4:59 PM CDT us Franc Chatman NP PATHOLOGY/CYTOLOGY Final Result [facility] [address] [place] [address], [place] from Last 3 Months or Most [...] 8:42 PM 11/12/2012 9:31 PM Care Teams Diesel Bus Mechanic Relationship Specialty Start Date End Date Pcp, No . PCP - General 12/09/18 Catherine Liang MD [address] [place] [address] Rheumatology Rheumatology 12/31/15
[2024-07-12 07:56] VITALS: BP 126/83; PULSE 91; RESP 16; TEMP 37.2; O2SAT 99; BMI 38.5
--- OUTSIDE RECORDS SUMMARY | 2024-07-12 07:56 | XMS_ITS | Encounter Summary ---
Author Organization [facility] Address [address] [place] [address] Care Team Providers Care Molded Goods Operator Name Role Phone Sonya Smith APRN STONECUTTER Unavailable [phone] No Ref-Primary, Physician Primary Care Provider Reason for Visit * Reason Comments Wrist Pain Encounter Details Date Type Department Care Team (Late st Contact Info) Description 06/01/2024 9:10 AM GLOBAL UPSTREAM MARKETING MANAGER - 06/01/2024 10:29 AM [facility] Emergency [facility] Emergency Dept [address] [place] [address] Alyson Swartz, PA-C [facility] [address] [place] [id number] Pain in both wrists; De Quervain's tenosynovitis, [...] on file Legal Sex Female 3:14 AM GLOBAL UPSTREAM MARKETING MANAGER Gender Identity Not on file Sexual Orientation Not on file documented as of this encounter Last Filed Vital Signs Vital Sign Reading Time Taken Comments Blood Pressure 123/68 06/01/2024 10:28 AM GLOBAL UPSTREAM MARKETING MANAGER Pulse 74 06/01/2024 10:28 AM GLOBAL UPSTREAM MARKETING MANAGER Temperature 36.8 C (98.2 F) 06/01/2024 8:49 AM GLOBAL UPSTREAM MARKETING MANAGER Respiratory Rate 18 06/01/2024 10:28 AM GLOBAL UPSTREAM MARKETING MANAGER Oxygen Saturation 99% 06/01/2024 10:28 AM GLOBAL UPSTREAM MARKETING MANAGER Inhaled Oxygen Concentration - - Weight 98 kg (216 lb 0.8 oz) 06/01/2024 8:49 AM GLOBAL UPSTREAM MARKETING MANAGER Height 160 cm (5' 3) 06/01/2024 8:49 AM GLOBAL UPSTREAM MARKETING MANAGER Body Mass Index 38.27 06/01/2024 8:49 AM GLOBAL UPSTREAM MARKETING MANAGER documented in this encounter Discharge Instructions * Discharge Instructions* Alyson Swartz PA-C - 06/01/2024 10:15 AM GLOBAL UPSTREAM MARKETING MANAGER Take 1000 mg of Tylenol every [...] symptoms. Follow-up with orthopedics for definitive management AL UPSTREAM MARKETING MANAGER AL UPSTREAM MARKETING MANAGER * Attachments The following attachments cannot be sent through Care Everywhere. * De Quervain's Disease: Exercises (Uruguayan) * Wrist Tendinitis Exercises (Uruguayan) * De Quervain's: Tenosynovitis (Uruguayan) documented in this encounter Medications at Time [...] and de Quervain's tenosynovitis. 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 [...] I reviewed the patient's ED note from [facility] 10/06/2023 when seen for de Quervain's tenosynovitis [...] 3:14 PM Alyson Swartz PA-C 06/01/24 1514 AL UPSTREAM MARKETING MANAGER * Sheela Newton RN - 06/01/2024 [...] WDL WDL Cognitive/Neuro/Behavioral WDL Cognitive/Neuro/Behavioral WDL WDL AL UPSTREAM MARKETING MANAGER documented in this encounter Plan of Treatment Not on file documented as of this encounter Procedures Procedure Name Priority Date/Time Associated Diagnosis Comments XR WRIST RIGHT G/E 3 VIEWS STAT 06/01/2024 9:53 AM GLOBAL UPSTREAM MARKETING MANAGER XR HAND RIGHT G/E 3 VIEWS STAT 06/01/2024 9:53 AM GLOBAL UPSTREAM MARKETING MANAGER documented in this encounter Results * XR Wrist Right G/E 3 Views (06/01/2024 9:53 AM GLOBAL UPSTREAM MARKETING MANAGER) Anatomical Region Laterality Modality Wrist, Right Wrist Right Digital Radio graphy 06/01/2024 9:53 AM GLOBAL UPSTREAM MARKETING MANAGER Impressions 06/01/2024 9:58 AM GLOBAL UPSTREAM MARKETING MANAGER IMPRESSION: Normal joint spaces and alignment. No fracture. Narrative 06/01/2024 9:58 AM GLOBAL UPSTREAM MARKETING MANAGER EXAM: XR WRIST RIGHT G/E 3 VIEWS, XR HAND RIGHT G/E 3 VIEWS LOCATION: [facility] DATE: 06/01/2024 INDICATION: trauma, dorsal swelling COMPARISON: None. Procedure Note Carlos Montoya MD - 06/01/2024 EXAM: XR WRIST RIGHT G/E 3 VIEWS, XR HAND RIGHT G/E 3 VIEWS LOCATION: [facility] DATE: 06/01/2024 INDICATION: trauma, dorsal swelling COMPARISON: None. IMPRESSION: Normal joint spaces and alignment. No fracture. Alyson Swartz PA-C [facility] O RDERABLES Final Result * XR Hand Right G/E 3 Views (06/01/2024 9:53 AM GLOBAL UPSTREAM MARKETING MANAGER) Anatomical Region Laterality Modality Hand, Wrist Right Digital Radiogra phy 06/01/2024 9:53 AM GLOBAL UPSTREAM MARKETING MANAGER Impressions 06/01/2024 9:58 AM GLOBAL UPSTREAM MARKETING MANAGER IMPRESSION: Normal joint spaces and alignment. No fracture. Narrative 06/01/2024 9:58 AM GLOBAL UPSTREAM MARKETING MANAGER EXAM: XR WRIST RIGHT G/E 3 VIEWS, XR HAND RIGHT G/E 3 VIEWS LOCATION: [facility] DATE: 06/01/2024 INDICATION: trauma, dorsal swelling COMPARISON: None. Procedure Note Carlos Montoya MD - 06/01/2024 EXAM: XR WRIST RIGHT G/E 3 VIEWS, XR HAND RIGHT G/E 3 VIEWS LOCATION: [facility] DATE: 06/01/2024 INDICATION: trauma, dorsal swelling [...] Total Score: 0 06/24/19 22 1:03 PM GLOBAL UPSTREAM MARKETING MANAGER documented as of this encounter Care Teams Molded Goods Operator Relationship Specialty Start Date End Date No Ref-Primary, Physician PCP - General 06/01/24 oSnya Smith APRN STONECUTTER [address] [place] [address] Assigned PCP 09/23/23 documented as of this encounter
--- OUTSIDE RECORDS SUMMARY | 2024-07-12 07:56 | XMS_ITS | Encounter Summary ---
Author Organization [facility] Address [address] [place] [address] Care Team Providers Care Classroom Monitor Name Role Phone Sonya Smith APRN HIM DIRECTOR Primary Care Provider Dipak Villegas MD Unavailable [phone] Fredo Culver MD Unavailable Sonya Smith APRN HIM DIRECTOR Unavailable [phone] No Ref-Primary, Physician Primary Care Provider Encounter Details Date Type Department Care Team (Late st Contact Info) Description 04/01/2023 My[facility] Medical Advice [address] [address] Nate Yost, EDGARDO Social History [...] on file Legal Sex Female 3:14 AM RECONCILIATION MANAGER Gender Identity Not on file Sexual Orientation Not on file documented as of this encounter Plan of Treatment Not on file documented as of this encounter Visit Diagnoses Not on filedocumented in this encounter Additional Health Concerns Assessment Noted Time PHQ-9 Depression Total Score: 0 06/24/19 22 1:03 PM RECONCILIATION MANAGER documented as of this encounter Care Teams Classroom Monitor Relationship Specialty Start Date End Date Sonya Smith APRN HIM DIRECTOR [address] [place] [address] PCP - General Family Practice 07/12/21 05/31/24 No Ref-Primary, Physician PCP - General 06/01/24 Dipak Villegas MD [address] [place] [address] Assigned OBGYN Provider 03/28/22 [place] [address] [place] [address] Assigned PCP 01/09/23 09/22/23 Sonya Smith APRN HIM DIRECTOR [address] [place] [address] Assigned PCP 09/23/23 documented as of this encounter
--- OUTSIDE RECORDS SUMMARY | 2024-07-12 07:56 | XMS_ITS | Clinical Summary ---
Author Organization [facility] Address [address] [place] [address] Care Team Providers Care Plant Anatomist Name Role Phone No Primary/Referring, Phy Primary Care Provider Unavailable Source Comments You are receiving this document as you are listed as the primary care provider,follow-up provider, or the patient has been referred to you for consultation.This is in compliance with the Medicare and[facility] EHR Incentive Program,which states Providers who transition their patient to another setting of careor provider of care or refers their patient to another provider of care shouldprovide summary care record for each transition of care or referral. [facility] Allergies No known active allergies Medications levonorgestrel [...] Comments Blood Pressure 102/60 03/15/2020 2:00 PM BLAST FURNACE CHECKER Pulse 85 03/15/2020 2:00 PM BLAST FURNACE CHECKER Temperature 36.9 C (98.5 F) 03/15/2020 2:00 PM BLAST FURNACE CHECKER Respiratory Rate 16 06/02/2019 2:04 PM BLAST FURNACE CHECKER Oxygen Saturation 98% 03/15/2020 2:00 PM BLAST FURNACE CHECKER Inhaled Oxygen Concentration - - Weight 89.4 kg (197 lb) 03/15/2020 2:00 PM BLAST FURNACE CHECKER Height 162.6 cm (5' 4) 09/27/2017 5:18 PM CDT Body Mass Index 33.81 09/27/2017 5:18 PM CDT Plan of Treatment Health Maintenance Due Date Last Done Comments Cervical Cancer Screening Due 1984 Hep C Screening (Preventive Services) 1984 HIV Screening (Preventive Services) 2000 Adult Preventive Visit 2002 HepB (1) 10/22/2003 Pneumococcal (1 of 2 - PCV) 10/22/2003 COVID-19 Vaccine (2023-2 5 season) 2024 Influenza (#1) 2024 01/06/2017, 01/21/2016 DTaP/Tdap/Td (4 - Tdap) 06/28/2027 06/28/19, 08/30/2012, 12/31/2010 Zoster/Shingles (1 of 2) 2034 [...] age to complete this topic Care Teams Plant Anatomist Relationship Specialty Start Date End Date No Primary/Referring, Phy PCP - General 09/27/17
--- OUTSIDE RECORDS SUMMARY | 2024-07-12 07:56 | XMS_ITS | Encounter Summary ---
Author Organization [place] Address [address] [place] [address] Care Team Providers Care Election Judge Name Role Phone Brigitte Acevedo APRN, CNP Unavailable [phone] Anmol Cruz MD Unavailable Sonya Smith APRN, CNP Primary Care Provider Sonya Smith APRN, CNP Unavailable [phone] Dipak Villegas MD Unavailable + [phone] Fredo Culver MD Unavailable Sonya Smith APRN, CNP Unavailable [phone] No Ref-Primary, Physician Primary Care Provider Encounter [...] on file Legal Sex Female 3:14 AM INVESTIGATIVE ANALYST Gender Identity Not on file Sexual Orientation Not on file COVID-19 Exposure Response Date Recorded In the last month, have you been in contact with someone who was confirmed or suspected to have Coronavirus / COVID-19? No / Unsure 07/12/2021 10:18 AM INVESTIGATIVE ANALYST documented as of this encounter Plan of Treatment Not on file documented as of this encounter Visit Diagnoses Not on filedocumented in this encounter Additional Health Concerns Assessment Noted Time PHQ-9 Depression Total Score: 0 06/24/19 22 1:03 PM INVESTIGATIVE ANALYST documented as of this encounter Care Teams Election Judge Relationship Specialty Start Date End Date Sonya Smith APRN EMERGENCY TECHNICIAN [address] [place] [address] PCP - General Family Practice 07/12/21 05/31/24 No Ref-Primary, Physician PCP - General 06/01/24 Brigitte Acevedo APRN EMERGENCY TECHNICIAN [address] [place] [address] Assigned PCP 12/08/20 07/12/21 Anmol Cruz MD [address] [place] [address] Assigned Musculoskeletal Provider 06/22/21 12/25/22 Sonya Smith APRN EMERGENCY TECHNICIAN [address] [facility] [address] Assigned PCP 07/13/21 01/08/23 Dipak Villegas MD [address] [place] [address] Assigned OBGYN Provider 03/28/22 [place] [address] [place] [address] Assigned PCP 01/09/23 09/22/23 Sonya Smith APRN EMERGENCY TECHNICIAN [address] [facility] [place] [address] Assigned PCP 09/23/23 documented as of this encounter
--- OUTSIDE RECORDS SUMMARY | 2024-07-12 07:56 | XMS_ITS | Encounter Summary ---
Author Organization [facility] Address [address] [place] [address] Care Team Providers Care Body Shop Supervisor Name Role Phone Anmol Cruz MD Unavailable Sonya Smith APRN RELAY OPERATOR Primary Care Provider Sonya Smith APRN RELAY OPERATOR Unavailable [phone] Dipak Villegas MD Unavailable + [phone] Fredo Culver MD Unavailable Sonya Smith APRN RELAY OPERATOR Unavailable [phone] No Ref-Primary, Physician Primary Care Provider Encounter Details Date Type Department Care Team (Late st Contact Info) Description 03/24/2022 [facility] Medical Advice [facility] Women's [address] [place] [address] Starr Mendoza Social History Tobacco [...] on file Legal Sex Female 3:14 AM CAKE TESTER Gender Identity Not on file Sexual Orientation Not on file COVID-19 Exposure Response Date Recorded In the last 10 days, have yo u been in contact with someone who was confirmed or suspected to have Coronavirus/COVID-19? No / Unsure 03/24/2022 8:49 AM CAKE TESTER documented as of this encounter Plan of Treatment Not on file documented as of this encounter Visit Diagnoses Not on filedocumented in this encounter Additional Health Concerns Assessment Noted Time PHQ-9 Depression Total Score: 0 06/24/19 1:03 PM CAKE TESTER documented as of this encounter Care Teams Body Shop Supervisor Relationship Specialty Start Date End Date Sonya Smith APRN RELAY OPERATOR [address] [place] [address] PCP - General Family Practice 07/12/21 05/31/24 No Ref-Primary, Physician PCP - General 06/01/24 Anmol Cruz MD [address] [place] [address] [address] [place] [address] Assigned Musculoskeletal Provider 06/22/21 12/25/22 Sonya Smith APRN RELAY OPERATOR [address] [place] [address] Assigned PCP 07/13/21 01/08/23 Dipak Villegas MD [address] [place] [address] Assigned OBGYN Provider 03/28/22 [place] [address] [place] [address] Assigned PCP 01/09/23 09/22/23 Sonya Smith APRN RELAY OPERATOR [address] [facility] [place] [address] Assigned PCP 09/23/23 documented as of this encounter
--- OUTSIDE RECORDS SUMMARY | 2024-07-12 07:56 | XMS_ITS | Clinical Summary ---
Author Organization [facility] Address [address] [place] [address] Care Team Providers Care Operations Forester Name Role Phone Sonya Smith APRN AIRCRAFT CLEANER Unavailable [phone] No Ref-Primary, Physician Primary Care Provider Allergies [...] Bilateral. Assessment & Plan (07/06/2021 7:12 PM ORTHOTICS TECHNICIAN): Bilateral leg contusions lower leg. Seen at ED with X-rays that were negative. Has been going to work. 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 Emergency Dept [address] [place] [address] Alyson Swartz, SIER[place] Pain in both wrists; [...] on file Legal Sex Female 3:14 AM ORTHOTICS TECHNICIAN Gender Identity Not on file Sexual Orientation Not on file Last Filed Vital Signs Vital Sign Reading Time Taken Comments Blood Pressure 123/68 06/01/2024 10:28 AM ORTHOTICS TECHNICIAN Pulse 74 06/01/2024 10:28 AM ORTHOTICS TECHNICIAN Temperature 36.8 C (98.2 F) 06/01/2024 8:49 AM ORTHOTICS TECHNICIAN Respiratory Rate 18 06/01/2024 10:28 AM ORTHOTICS TECHNICIAN Oxygen Saturation 99% 06/01/2024 10:28 AM ORTHOTICS TECHNICIAN Inhaled Oxygen Concentration - - Weight 98 kg (216 lb 0.8 oz) 06/01/2024 8:49 AM ORTHOTICS TECHNICIAN Height 160 cm (5' 3) 06/01/2024 8:49 AM ORTHOTICS TECHNICIAN Body Mass Index 38.27 06/01/2024 8:49 AM ORTHOTICS TECHNICIAN Plan of Treatment Health Maintenance Due Date [...] G/E 3 VIEWS STAT 06/01/2024 9:53 AM ORTHOTICS TECHNICIAN XR HAND RIGHT G/E 3 VIEWS STAT 06/01/2024 9:53 AM ORTHOTICS TECHNICIAN HEPATITIS C SCREEN REFLEX TO HCV RNA QUANT AND GENOTYPE Routine 07/02/2021 4:49 PM ORTHOTICS TECHNICIAN Routine general medical examination at a [facility] facility COMPREHENSIVE METABOLIC PANEL Routine 12/03/2020 10:01 AM CDT RUQ abdominal pain ABSTRACT PAP ([facility] EXTERNAL RESULT) Routine 10/25/2015 ABSTRACT HPV ([facility] EXTERNAL RESULT) Routine 10/25/2015 HCL HIV 1 & 2 ANTIBODY Routine 9 10:08 AM CDT Supervision of Other Normal from Last 3 Months or Most Recently Relevant to Health Maintenance Results * XR Wrist Right G/E 3 Views (06/01/2024 9:53 AM ORTHOTICS TECHNICIAN) Anatomical Region Laterality Modality Wrist, Right Wrist Right Digital Radio graphy 06/01/2024 9:53 AM ORTHOTICS TECHNICIAN Impressions 06/01/2024 9:58 AM ORTHOTICS TECHNICIAN IMPRESSION: Normal joint spaces and alignment. No fracture. Narrative 06/01/2024 9:58 AM ORTHOTICS TECHNICIAN EXAM: XR WRIST RIGHT G/E 3 VIEWS, XR HAND RIGHT G/E 3 VIEWS LOCATION: [facility] DATE: 06/01/2024 INDICATION: trauma, dorsal swelling COMPARISON: None. Procedure Note Carlos Montoya MD - 06/01/2024 EXAM: XR WRIST RIGHT G/E 3 VIEWS, XR HAND RIGHT G/E 3 VIEWS LOCATION: [facility] DATE: 06/01/2024 INDICATION: trauma, dorsal swelling COMPARISON: None. IMPRESSION: Normal joint spaces and alignment. No fracture. Alyson Swartz PA-C [facility] O RDERABLES Final Result * XR Hand Right G/E 3 Views (06/01/2024 9:53 AM ORTHOTICS TECHNICIAN) Anatomical Region Laterality Modality Hand, Wrist Right Digital Radiogra phy 06/01/2024 9:53 AM ORTHOTICS TECHNICIAN Impressions 06/01/2024 9:58 AM ORTHOTICS TECHNICIAN IMPRESSION: Normal joint spaces and alignment. No fracture. Narrative 06/01/2024 9:58 AM ORTHOTICS TECHNICIAN EXAM: XR WRIST RIGHT G/E 3 VIEWS, XR HAND RIGHT G/E 3 VIEWS LOCATION: [facility] DATE: 06/01/2024 INDICATION: trauma, dorsal swelling COMPARISON: None. Procedure Note Carlos Montoya MD - 06/01/2024 EXAM: XR WRIST RIGHT G/E 3 VIEWS, XR HAND RIGHT G/E 3 VIEWS LOCATION: [facility] DATE: 06/01/2024 INDICATION: trauma, dorsal swelling COMPARISON: None. IMPRESSION: Normal joint spaces and alignment. No fracture. Alyson Swartz PA-C [facility] O RDFELIPA Final Result * Hepatitis C Screen Reflex to HCV RNA Quant and Genotype (07/02/2021 4:49 PM ORTHOTICS TECHNICIAN) Hepatitis C Antibody Nonreactive Nonreactive 07/03/2021 7:21 PM ORTHOTICS TECHNICIAN [facility]/EN DO Blood STRUCTURE OF RIGHT UPPER LIMB / Unknown Venipuncture / Unknown 07/02/2021 4:49 PM ORTHOTICS TECHNICIAN 07/02/2021 4:49 PM ORTHOTICS TECHNICIAN Narrative [facility] SPECIAL[facility] CORE/PROT/ENDO - 07/03/2021 7:21 PM ORTHOTICS TECHNICIAN Assay performance characteristics have not been established for newborns, infants, and children. Sonya Smith YARDER BOSS AIRCRAFT CLEANER LAB - BLOOD ORDERABLES Final Result [facility] CORE/PROT/ENDO UM Specialty Core/Prot/Endo [address] [facility], Room [address] [place] [address], [facility] [phone] * (ABNORMAL) Comprehensive metabolic panel (BMP + [...] 10:02 AM CDT us Brigitte Acevedo APRN AIRCRAFT CLEANER LAB - BLOOD ORDERABLES Final Result [facility] [address] Lab (no room number, 1st floor of clinic) [place] [address], [facility] [phone] * ABSTRACT HPV-NO CHARGE (10/25/2015) HPV Abstract See Scanned Document [facility] 10/25/2015 Narrative [facility] - 10/25/2015 RESULTS FOUND IN CARE EVERYWHERE [facility] us Provider Outside LAB - HIM EXTERNAL RESULT Final Result [facility] [address] [place] [address], [facility] * ABSTRACT PAP-NO CHARGE (10/25/2015) PAP-ABSTRACT See Scanned Document [facility] 10/25/2015 Narrative [facility] - 10/25/2015 RESULTS FOUND IN CARE EVERYWHERE [facility] us Provider Outside LAB - HIM EXTERNAL RESULT Final Result [facility] [address] * HIV 1 & 2, SCREEN (08/07/2008 10:08 AM CDT) HIV 1&2 Antibody Negative NEG [facility] 08/07/2008 10:0 8 AM CDT 08/07/2008 10:13 AM CDT us Yang Romero MD LABORATORY Final Resul t [facility] [address] [place] [address] from Last 3 Months or Most Recently Relevant to Health Maintenance Care Teams Operations Forester Relationship Specialty Start Date End Date No Ref-Primary, Physician PCP - General 06/01/24 Sonya Smith APRN AIRCRAFT CLEANER [address] [place] [address] Assigned PCP 09/23/23
--- OUTSIDE RECORDS SUMMARY | 2024-07-12 07:56 | XMS_ITS | Encounter Summary ---
Author Organization [facility] Address [address] [place] [address] Care Team Providers Care Cook Ship Name Role Phone Jennie Acevedona JESSIE PLANT PROTECTION SUPERINTENDENT Unavailable [phone] No Ref-Primary, Physician Primary Care Provider Anmol Cruz MD Unavailable Sonya Smith APRN, CNP Primary Care Provider Sonya Smith APRN PLANT PROTECTION SUPERINTENDENT Unavailable [phone] Dipak Villegas MD Unavailable + [phone] Fredo Culver MD Unavailable Sonya Smith APRN PLANT PROTECTION SUPERINTENDENT Unavailable [phone] No Ref-Primary, Physician Primary Care Provider Reason for Visit * Reason Onset Date Comments Patient Inquiry 07/07/2021 Encounter Details Date Type Department Care Team (Late st Contact Info) Description 07/07/2021 [facility] Medical Advice [facility] [address] [place] [address] Sonya Smith APRN PLANT PROTECTION SUPERINTENDENT [address] [place] [address] Patient Inquiry Social History Tobacco [...] on file Legal Sex Female 3:14 AM MACHINE HEDDLE CLEANER Gender Identity Not on file Sexual Orientation Not on file COVID-19 Exposure Response Date Recorded In the last month, have you been in contact with someone who was confirmed or suspected to have Coronavirus / COVID-19? No / Unsure 07/02/2021 3:42 PM MACHINE HEDDLE CLEANER documented as of this encounter Miscellaneous Notes * Telephone Encounter - Brigitte Acevedo Ra, APRN CNP - 07/10/2021 11:00 AM MACHINE HEDDLE CLEANER She should be seen to evaluate, if not in office, in urgent care. EZE INE HEDDLE CLEANER * Telephone Encounter - Stacey Ramachandran RN - 07/09/2021 5:45 PM CST Will route to POD since Abiola Smith is out of the office for the next 2 weeks. Stacey Ramachandran RN INE HEDDLE CLEANER * Telephone Encounter - Azeem Velez RN - 07/08/2021 5:13 PM CST Please see patient MyChart message regarding follow up on leg bump. Last OV w/ V.O. 07/02/21. Please review and advise. Azeem Griffin RN INE HEDDLE CLEANER documented in this encounter Plan of Treatment Not on file documented as of this encounter Visit Diagnoses Not on filedocumented in this encounter Additional Health Concerns Assessment Noted Time PHQ-9 Depression Total Score: 0 06/24/19 1:03 PM MACHINE HEDDLE CLEANER documented as of this encounter Care Teams Cook Ship Relationship Specialty Start Date End Date No Ref-Primary, Physician PCP - General 06/15/21 07/11/21 Sonya Smith APRN PLANT PROTECTION SUPERINTENDENT [address] [place] [address] PCP - General Family Practice 07/12/21 05/31/24 No Ref-Primary, Physician PCP - General 06/01/24 Brigitte Acevedo APRN PLANT PROTECTION SUPERINTENDENT [address] [place] [address] Assigned PCP 12/08/20 07/12/21 Anmol Cruz MD [address] [facility] [address] [place], [place] [address] Assigned Musculoskeletal Provider 06/22/21 12/25/22 Sonya Smith APRN PLANT PROTECTION SUPERINTENDENT [address] [facility] [place] [address] Assigned PCP 07/13/21 01/08/23 Dipak Villegas MD [address] [place] [address] Assigned OBGYN Provider 03/28/22 [place] [address] [place] [address] Assigned PCP 01/09/23 09/22/23 Sonya Smith APRN PLANT PROTECTION SUPERINTENDENT [address] [facility] [place] [address] Assigned PCP 09/23/23 documented as of this encounter
--- OUTSIDE RECORDS SUMMARY | 2024-07-12 07:56 | XMS_ITS | Encounter Summary ---
Author Organization [place] Address [address] [place] [address] Care Team Providers Care Executive Chef Name Role Phone [facility] [place] Primary Care Provider Brigitte Acevedo APRN FACTORY HELPER Unavailable [phone] No Ref-Primary, Physician Primary Care Provider Anmol Cruz MD Unavailable Sonya Smith APRN FACTORY HELPER Primary Care Provider Sonya Smith APRN FACTORY HELPER Unavailable [phone] Dipak Villegas MD Unavailable + [phone] Fredo Culver MD Unavailable Sonya Smith APRN FACTORY HELPER Unavailable [phone] No Ref-Primary, Physician Primary Care Provider Encounter [...] on file Legal Sex Female 3:14 AM FIRE TENDER Gender Identity Not on file Sexual Orientation [...] on filedocumented in this encounter Care Teams Executive Chef Relationship Specialty Start Date End Date [facility], [address] [address] PCP - General 01/11/17 06/14/21 No Ref-Primary, Physician PCP - General 06/15/21 07/11/21 Sonya Smith APRN FACTORY HELPER [address] [place] [address] PCP - General Family Practice 07/12/21 05/31/24 No Ref-Primary, Physician PCP - General 06/01/24 Brigitte Acevedo APRN FACTORY HELPER [address] [place] [address] Assigned PCP 12/08/20 07/12/21 Anmol Cruz MD [address] [place] [address] [address] [place] [address] Assigned Musculoskeletal Provider 06/22/21 12/25/22 Sonya Smith APRN FACTORY HELPER [address] [place] [address] Assigned PCP 07/13/21 01/08/23 Dipak Villegas MD [address] [place] [address] Assigned OBGYN Provider 03/28/22 [place] [address] [facility] [address] Assigned PCP 01/09/23 09/22/23 Sonya Smith APRN FACTORY HELPER [address] [facility] [place] [address] Assigned PCP 09/23/23 documented as of this encounter
--- OUTSIDE RECORDS SUMMARY | 2024-07-12 07:56 | XMS_ITS | Encounter Summary ---
Author Organization [facility] Address [address] [place] [address] Care Team Providers Care Frame Coverer Name Role Phone Anmol Cruz MD Unavailable Sonya Smith APRN ELECTRICAL CAD TECHNICIAN Primary Care Provider Sonya Smith APRN ELECTRICAL CAD TECHNICIAN Unavailable [phone] Dipak Villegas MD Unavailable [phone] Fredo Culver MD Unavailable Sonya Smith APRN ELECTRICAL CAD TECHNICIAN Unavailable [phone] No Ref-Primary, Physician Primary Care Provider Encounter Details Date Type Department Care Team (Late st Contact Info) Description 03/24/2022 [facility] Medical Advice [facility] Women's [address] [place] [phone] Dipak Villegas MD [address] [place], [place] [id number] Social History Tobacco Use Types Packs/Day Years Used Date Smoking Tobacco: Every Day Cigarettes Smokeless Tobacco: Never Alcohol Use Standard Drinks/Week Comments No 0 (1 standard drink = 0.6 oz pur e alcohol) occasional PHQ-2 Answer Date Recorded PHQ-2 Score 0 07/02/2021 Comments No Sex and Gender Information Value Date Recorded Sex Assigned at Not on file Legal Sex Female 3:14 AM DIRECTOR OF ANNUAL GIVING Gender Identity Not on file Sexual Orientation Not on file COVID-19 Exposure Response Date Recorded In the last 10 days, have yo u been in contact with someone who was confirmed or suspected to have Coronavirus/COVID-19? No / Unsure 03/24/2022 8:49 AM DIRECTOR OF ANNUAL GIVING documented as of this encounter Miscellaneous Notes * Telephone Encounter - Adrianna Escamilla RN - 03/24/2022 2:46 PM CST Pt advised via my chart. Samaria Escamilla RN CTOR OF ANNUAL GIVING * Telephone Encounter - Dipak Villegas MD - 03/24/2022 2:40 PM DIRECTOR OF ANNUAL GIVING I would advise her to return to [...] go forward with it. Dipak Villegas MD CTOR OF ANNUAL GIVING * Telephone Encounter - Adrianna Escamilla RN - 03/24/2022 1:04 PM CST Please address the my chart message. Last OV 03/20/22. Pelvic US was done on 03/24/22. Samaria Escamilla RN CTOR OF ANNUAL GIVING documented in this encounter Plan of Treatment Not on file documented as of this encounter Visit Diagnoses Not on filedocumented in this encounter Additional Health Concerns Assessment Noted Time PHQ-9 Depression Total Score: 0 06/24/19 1:03 PM DIRECTOR OF ANNUAL GIVING documented as of this encounter Care Teams Frame Coverer Relationship Specialty Start Date End Date Sonya Smith APRN ELECTRICAL CAD TECHNICIAN [address] [place] [address] PCP - General Family Practice 07/12/21 05/31/24 No Ref-Primary, Physician PCP - General 06/01/24 Anmol Cruz MD [address] [facility] [address] [place], [place] [address] Assigned Musculoskeletal Provider 06/22/21 12/25/22 Sonya Smith APRN ELECTRICAL CAD TECHNICIAN [address] [place] [address] Assigned PCP 07/13/21 01/08/23 Dipak Villegas MD [address] [place] [address] Assigned OBGYN Provider 03/28/22 [place] [address] [place] [address] Assigned PCP 01/09/23 09/22/23 Sonya Smith APRN ELECTRICAL CAD TECHNICIAN [address] [place] [address] Assigned PCP 09/23/23 documented as of this encounter
--- OUTSIDE RECORDS SUMMARY | 2024-07-12 07:56 | XMS_ITS | Encounter Summary ---
Author Organization [facility] Address [address] [place] [address] Care Team Providers Care Health Nurse Name Role Phone Sonya Smith APRN COMMERCIAL JOURNEYMAN ELECTRICIAN Unavailable [phone] No Ref-Primary, Physician Primary Care Provider Encounter [...] on file Legal Sex Female 3:14 AM HOG GRADER Gender Identity Not on file Sexual Orientation Not on file documented as of this encounter Plan of Treatment Not on file documented as of this encounter Visit Diagnoses Not on filedocumented in this encounter Additional Health Concerns Assessment Noted Time PHQ-9 Depression Total Score: 0 06/24/19 22 1:03 PM HOG GRADER documented as of this encounter Care Teams Health Nurse Relationship Specialty Start Date End Date No Ref-Primary, Physician PCP - General 06/01/24 Sonya Smith APRN CNP [address] [place] [address] Assigned PCP 09/23/23 documented as of this encounter
--- NOTE | 2024-07-12 08:27 | ED_ITS ---
HPI - General Adult General Chief complaint: Extremity Pain/Injury, Upper Stated complaint: R shoulder injury Time Seen by Provider: 07/12/24 07:59 History of Present Illness HPI narrative: Patient is a 38 year female reach forward with her purse and tried to grab a garbage can experience pain in her right shoulder heard a popping sensation. She has been able to move her shoulder but it has been painful. Mostly in the AV duction and external rotation. 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 She has been unable to lift. She presents to ER for assessment. She notices some swelling about her shoulder but no bruising redness or warmth. No prior injury. Related Data Previous Rx's ?Medication ?Instructions ?Recorded indomethacin 25 mg capsule 25 mg PO TID #15 caps 07/12/24 Allergies Allergy/AdvReac Type Severity Reaction Status Date / Time No Known Drug Allergies Allergy Verified 07/12/24 08:04 Review of Systems Status of ROS: Reports: 6 or more systems reviewed and unremarkable except as noted in History and below PFSH PFSH Social History Smoking Status: Former smoker Do you use any of these nicotine containing products: None Second hand tobacco smoke exposure: No How often do you have a drink containing alcohol: monthly or less How many standard drinks containing alcohol do you have on a typical day: 1 or 2 How often do you have six or more drinks on one occasion: Never AUDIT-C Alcohol total score: 1 Non-prescribed substance use: denies use service: No Exam Narrative: Exam Narrative: Objective: Patient is alert orient x3 she is actually fairly full range of motion of her right shoulder she has no dislocation no sulcus sign. Has normal sensation over her deltoid. 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 She does have little bit of pain with AP duction external rotation. Const: Vital Signs, click to edit/add: Vital Signs - 24 hr 07/12/24 07:56 Temperature 98.9 F Pulse Rate [Pulse Oximeter] 91 Respiratory Rate 16 Blood Pressure [Le ft Upper Arm] 126/83 Pulse Oximetry 99 Oxygen Delivery Me thod Room Air Course Vital Signs Vital signs: Initial Vital Signs Temperature 98.9 F 07/12/24 07:56 Temperature Source Temporal Artery Scan 07/12/24 07:56 Pulse Rate 91 07/12/24 07:56 Respiratory Rate 16 07/12/24 07:56 Blood Pressure 126/83 07/12/24 07:56 Blood Pressure Mean 97 07/12/24 07:56 Blood Pressure Position Sitting 07/12/24 07:56 Pulse Oximetry 99 07/12/24 07:56 Oxygen Delivery Method Room Air 07/12/24 07:56 Vital Signs Temperature 98.9 F 07/12/24 07:56 Pulse Rate 91 07/12/24 07:56 Respiratory Rate 16 07/12/24 07:56 Blood Pressure 126/83 07/12/24 07:56 Pulse Oximetry 99 07/12/24 07:56 Oxygen Delivery Method Room Air 07/12/24 07:56 Temperature 98.9 F 07/12/24 07:56 Pulse Rate 91 07/12/24 07:56 Respiratory Rate 16 07/12/24 07:56 Blood Pressure 126/83 07/12/24 07:56 Pulse Oximetry 99 07/12/24 07:56 Oxygen Delivery Method Room Air 07/12/24 07:56 Medical Decision Making MDM Narrative Medical decision making narrative: 38-year-old female with right shoulder strain possibly rotator cuff strain. The patient will be put in a sling. Ice on a regular basis. Indocin 25 t.i.d. over the next 3-5 days as needed. Will set up an orthopedic appointment for the next 3-5 days. Recommend off work for 5 days. Return to ED as needed. Discharge Plan Discharge Clinical Impression: Shoulder sprain Patient Disposition: Home, Self-Care Condition: Stable Instructions: Shoulder Sprain (ED) Additional Instructions: Arm sling x3 days, recommend, in this in x5 days as prescribed, orthopedic followup in 3-5 days. Recommend off work for 5 days due to shoulder injury. Will write a note for this affect. Ice affected area 5-10 minutes 3 to 5 times a day, return to the ED as needed. Activity Level: Light activity Discharge Diet: Regular Prescriptions: New indomethacin 25 mg capsule 25 mg PO TID Qty: 15 0RF Rx Instructions: administer with food or milk Follow Up/Referrals: Provider,Not a Local [Primary Care Provider] - Stand Alone Forms: MyHealth Info Instructions
== END 2024-07-12 08:42 | disposition home or self-care (01) ==
PROVIDERS: Emergency Provider Family Medicine
DX: S43.401A Unspecified sprain of right shoulder joint, initial encounter (principal)
CPT/HCPCS: 99283; 99284

== ENCOUNTER 2025-01-19 07:42 | Emergency (ER) | payer OTHER, SELFPAY ==
--- OUTSIDE RECORDS SUMMARY | 2025-01-19 07:44 | XMS_ITS | Encounter Summary ---
Author Organization [facility] Address [address] [place] [address] Care Team Providers Care Field Artillery Officer Name Role Phone Sonya Smith APRN SECURITY CHIEF MUSEUM Primary Care Provider Dipak Villegas MD Unavailable + [phone] Fredo Culver MD Unavailable Sonya Smith APRN SECURITY CHIEF MUSEUM Unavailable [phone] No Ref-Primary, Physician Primary Care Provider Fredo Culver MD Unavailable Encounter Details Date Type Department Care Team (Late st Contact Info) Description 04/01/2023 [facility] F M [address] [address] Nate Yost MA Social History Tobacco Use Types Packs/Day Years [...] on file Legal Sex Female 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 Gender Identity Not on file Sexual Orientation Not on file documented as of this encounter Plan of Treatment Not on file documented as of this encounter Visit Diagnoses Not on filedocumented in this encounter Additional Health Concerns Assessment Noted Time PHQ-9 Depression Total Score: 0 06/24/19 1:03 PM 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 documented as of this encounter Care Teams Field Artillery Officer Relationship Specialty Start Date End Date Sonya Smith APRN SECURITY CHIEF MUSEUM [address] [facility] [place] [address] PCP - General Family Practice 07/12/21 05/31/24 No Ref-Primary, Physician PCP - General 06/01/24 Dipak Villegas MD [address] [place] [address] Assigned OBGYN Provider 03/28/22 [place] [address] [place] [address] Assigned PCP 01/09/23 09/22/23 Sonya Smith APRN SECURITY CHIEF MUSEUM [address] [facility] [place] [address] Assigned PCP 09/23/23 08/22/24 [place] [address] [place] [address] Assigned PCP 08/23/24 documented as of this encounter
--- OUTSIDE RECORDS SUMMARY | 2025-01-19 07:44 | XMS_ITS | Encounter Summary ---
Author Organization [facility] Address [address] [place] [address] Care Team Providers Care University Librarian Name Role Phone Anmol Cruz MD Unavailable Sonya Smith APRN WELT WHEELER Primary Care Provider Sonya Smith APRN WELT WHEELER Unavailable [phone] Dipak Villegas MD Unavailable + [phone] Fredo Culver MD Unavailable Sonya Smith APRN WELT WHEELER Unavailable [phone] No Ref-Primary, Physician Primary Care Provider Fredo Culver MD Unavailable Encounter Details Date Type Department Care Team (Late st Contact Info) Description 03/24/2022 [facility] Medical Advice [facility] [address] [place] [address] Dipak Villegas MD [address] [place] [address] Social History Tobacco Use Types Packs/Day Years Used Date Smoking Tobacco: Every Day Cigarettes Smokeless Tobacco: Never Alcohol Use Standard Drinks/Week Comments No 0 (1 standard drink = 0.6 oz pur e alcohol) occasional PHQ-2 Answer Date Recorded PHQ-2 Score 0 07/02/2021 Comments No Sex and Gender Information Value Date Recorded Sex Assigned at Not on file Legal Sex Female 3:14 AM MULTI SITE LEASING CONSULTANT Gender Identity Not on file Sexual Orientation Not on file COVID-19 Exposure Response Date Recorded In the last 10 days, have yo u been in contact with someone who was confirmed or suspected to have Coronavirus/COVID-19? No / Unsure 03/24/2022 8:49 AM MULTI SITE LEASING CONSULTANT documented as of this encounter Miscellaneous Notes * Telephone Encounter - Adrianna Escamilla RN - 03/24/2022 2:46 PM CST Pt advised via my chart. Samaria Escamilla RN I SITE LEASING CONSULTANT * Telephone Encounter - Dipak Villegas MD - 03/24/2022 2:40 PM MULTI SITE LEASING CONSULTANT I would advise her to return to [...] go forward with it. Dipak Villegas MD I SITE LEASING CONSULTANT * Telephone Encounter - Adrianna Escamilla RN - 03/24/2022 1:04 PM CST Please address the my chart message. Last OV 03/20/22. Pelvic US was done on 03/24/22. Samaria Escamilla RN I SITE LEASING CONSULTANT documented in this encounter Plan of Treatment Not on file documented as of this encounter Visit Diagnoses Not on filedocumented in this encounter Additional Health Concerns Assessment Noted Time PHQ-9 Depression Total Score: 0 06/24/19 1:03 PM MULTI SITE LEASING CONSULTANT documented as of this encounter Care Teams University Librarian Relationship Specialty Start Date End Date Sonya Smith APRN WELT WHEELER [address] [place] [address] PCP - General Family Practice 07/12/21 05/31/24 No Ref-Primary, Physician PCP - General 06/01/24 Anmol Cruz MD Assigned Musculoskeletal Provider 06/22/21 12/25/22 Sonya Smith APRN WELT WHEELER [address] [place] [address] Assigned PCP 07/13/21 01/08/23 Dipak Villegas MD [address] [place] [address] Assigned OBGYN Provider 03/28/22 [place] [address] [place] [address] Assigned PCP 01/09/23 09/22/23 Sonya Smith APRN WELT WHEELER [address] [facility] [place] [address] Assigned PCP 09/23/23 08/22/24 [place] [address] [place] [address] Assigned PCP 08/23/24 documented as of this encounter
--- OUTSIDE RECORDS SUMMARY | 2025-01-19 07:44 | XMS_ITS | Clinical Summary ---
Author Organization [facility] Address [address] [place] [address] Care Team Providers Care Oven Builder Name Role Phone No Primary/Referring, Phy Primary Care Provider Unavailable Source Comments You are receiving this document as you are listed as the primary care provider,follow-up provider, or the patient has been referred to you for consultation.This is in compliance with the Medicare and[facility] EHR Incentive Program,which states Providers who transition their patient to another setting of careor provider of care or refers their patient to another provider of care shouldprovide summary care record for each transition of care or referral. [facility] Allergies No known active allergies Medications levonorgestrel [...] Comments Blood Pressure 102/60 03/15/2020 2:00 PM COMMERCIAL FISHERMAN Pulse 85 03/15/2020 2:00 PM COMMERCIAL FISHERMAN Temperature 36.9 C (98.5 F) 03/15/2020 2:00 PM COMMERCIAL FISHERMAN Respiratory Rate 16 06/02/2019 2:04 PM COMMERCIAL FISHERMAN Oxygen Saturation 98% 03/15/2020 2:00 PM COMMERCIAL FISHERMAN Inhaled Oxygen Concentration - - Weight 89.4 kg (197 lb) 03/15/2020 2:00 PM COMMERCIAL FISHERMAN Height 162.6 cm (5' 4) 09/27/2017 5:18 PM CDT Body Mass Index 33.81 09/27/2017 5:18 PM CDT Plan of Treatment Health Maintenance Due Date Last Done Comments Cervical Cancer Screening Due 1984 Hep C Screening (Preventive Services) 1984 Mammogram 1984 HIV Screening (Preventive Services) 2000 Adult Preventive Visit 2002 HepB Vaccine (1) 10/22/2003 Pneumococcal Vaccine (1 of 2 - PCV) 10/22/2003 HPV Vaccine (1 - 3-dose SCDM series) 10/22/2011 COVID-19 Vaccine (1 - 2023-2 5 season) 2025 Influenza Vaccine (#1) 2025 7, 01/21/2016 DTaP/Tdap/Td Vaccine (4 - Tdap) 06/28/2027 06/28/2017, 08/30/2012, 12/31/2010 Zoster/Shingles Vaccine (1 o f 2) 2034 HepA Vaccine Aged Out No longer eligi ble based on patient's age to complete this topic Hib Vaccine Aged Out No longer eligi ble based on patient's age to complete this topic IPV (Polio) Vaccine Aged Out No longe r eligible based on patient's age to complete this topic MCV4 Vaccine Aged Out No longer eligi ble based on patient's age to complete this topic Meningococcal B Vaccine Aged Out No l onger eligible based on patient's age to complete this topic Care Teams Oven Builder Relationship Specialty Start Date End Date No Primary/Referring, Pan[facility] PCP - General 09/27/17
--- OUTSIDE RECORDS SUMMARY | 2025-01-19 07:44 | XMS_ITS | Encounter Summary ---
Author Organization [facility] Address [address] [place] [address] Care Team Providers Care Tariff Compiler Name Role Phone Anmol Cruz MD Unavailable Sonya Smith APRN RESEARCH METHODOLOGIST Primary Care Provider Sonya Smith APRN RESEARCH METHODOLOGIST Unavailable [phone] Dipak Villegas MD Unavailable + [phone] Fredo Culver MD Unavailable Sonya Smith APRN RESEARCH METHODOLOGIST Unavailable [phone] No Ref-Primary, Physician Primary Care Provider Fredo Culver MD Unavailable Encounter Details Date Type Department Care Team (Late st Contact Info) Description 03/24/2022 [facility] Medical Advice [facility] [address] [place] [address] Starr Mendoza Social History Tobacco [...] on file Legal Sex Female 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 No / Unsure 03/24/2022 8:49 AM PARTY PLAN SALES AGENT documented as of this encounter Plan of Treatment Not on file documented as of this encounter Visit Diagnoses Not on filedocumented in this encounter Additional Health Concerns Assessment Noted Time PHQ-9 Depression Total Score: 0 06/24/19 1:03 PM PARTY PLAN SALES AGENT documented as of this encounter Care Teams Tariff Compiler Relationship Specialty Start Date End Date Sonya Smith APRN RESEARCH METHODOLOGIST [address] [place] [address] PCP - General Family Practice 07/12/21 05/31/24 No Ref-Primary, Physician PCP - General 06/01/24 Anmol Cruz MD Assigned Musculoskeletal Provider 06/22/21 12/25/22 Sonya Smith APRN RESEARCH METHODOLOGIST [address] [place] [address] Assigned PCP 07/13/21 01/08/23 Dipak Villegas MD [address] [place] [address] Assigned OBGYN Provider 03/28/22 [place] [address] [place] [address] Assigned PCP 01/09/23 09/22/23 Sonya Smith APRN RESEARCH METHODOLOGIST [address] [facility] [place] [address] Assigned PCP 09/23/23 08/22/24 [place] [address] [address] [address] Assigned PCP 08/23/24 documented as of this encounter
--- OUTSIDE RECORDS SUMMARY | 2025-01-19 07:44 | XMS_ITS | Clinical Summary ---
Author Organization [facility] Address [address] [place] [address] Care Team Providers Care Layout Technician Name Role Phone No Ref-Primary, Physician Primary Care Provider Fredo Culver MD Unavailable Allergies No known active allergies Medications levonorgestrel [...] Bilateral. Assessment & Plan (07/06/2021 7:12 PM ADULT PROBATION OFFICER): Bilateral leg contusions lower leg. Seen at ED with X-rays that were negative. Has been going to work. 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 No focal pain. No acute worsening Habitual aborter 09/12/2008 Resolved Problems Problem Noted Date Diagnosed Date Resolved Date Encounter for triage in patient 07/24/2017 07/06/2021 CARDIOVASCULAR SCREENING; LD L GOAL LESS THAN 160 03/02/2010 07/06/2021 Seizure disorder 08/31/2008 07/06/2021 Overview (08/31/2008): No seizures or meds for 5 years. Immunizations Immunization Administration Dates Next Due COVID-19 MONOVALENT 12+ [...] on file Legal Sex Female 3:14 AM ADULT PROBATION OFFICER Gender Identity Not on file Sexual Orientation Not on file Last Filed Vital Signs Vital Sign Reading Time Taken Comments Blood Pressure 123/68 06/01/2024 10:28 AM ADULT PROBATION OFFICER Pulse 74 06/01/2024 10:28 AM ADULT PROBATION OFFICER Temperature 36.8 C (98.2 F) 06/01/2024 8:49 AM ADULT PROBATION OFFICER Respiratory Rate 18 06/01/2024 10:28 AM ADULT PROBATION OFFICER Oxygen Saturation 99% 06/01/2024 10:28 AM ADULT PROBATION OFFICER Inhaled Oxygen Concentration - - Weight 98 kg (216 lb 0.8 oz) 06/01/2024 8:49 AM ADULT PROBATION OFFICER Height 160 cm (5' 3) 06/01/2024 8:49 AM ADULT PROBATION OFFICER Body Mass Index 38.27 06/01/2024 8:49 AM ADULT PROBATION OFFICER Plan of Treatment Health Maintenance Due Date Last Done Comments ANNUAL REVIEW OF HM ORDERS 1984 MAMMO SCREENING 1984 YEARLY PREVENTIVE VISIT 10/22/1987 HEPATITIS B VACCINE (2 of 3 - 3-dose series) 12/03/1998 11/05/1998 HPV TEST 10/24/2020 10/25/2015, 10/25/2015 PAP 10/24/2020 10/25/2015, 10/02, 10/25/2015, Additional history exists DIABETES SCREENING 12/04/2023 12/03/2020, 0 10/07/2016, 07/23/2008, Additional history exists PHQ-2 (once per calendar year) 2024 07/02/2021, 06/24/2021, 06/24/2021, Additional history exists LIPID 2024 COVID-19 VACCINE ( season) 2025 06/01/2021, 03/06/2021 INFLUENZA VACCINE (#1) 2025 01/06/2017, 2015 ADVANCE CARE PLANNING 07/06/2026 07/06/2021 DTAP/TDAP/TD VACCINE (4 - Td or Tdap) 06/28/2027 06/28/2017, 08/30/2012, 12/31/2010 ZOSTER VACCINE (1 of 2) 2034 HIV SCREENING Completed 01/06/2017, 08/07/2008 HEPATITIS C SCREENING Completed 07/02/2021, 017 HPV VACCINE (No Doses Required) Completed MENINGITIS VACCINE Aged Out No longer eligible based on patient's age to complete this topic PNEUMOCOCCAL VACCINE: PEDIATRICS (0 to 5 YEARS) AND AT-RISK PATIENTS (6 to 49 YEARS) Aged Out No longer eligible based on patient's age to complete this topic Procedures Procedure Name Priority Date/Time Associated Diagnosis Comments HEPATITIS C SCREEN REFLEX TO HCV RNA QUANT AND GENOTYPE Routine 07/02/2021 4:49 PM ADULT PROBATION OFFICER Routine general medical examination at a health care facility COMPREHENSIVE METABOLIC PANEL Routine 12/03/2020 10:01 AM CDT RUQ abdominal pain ABSTRACT PAP ([facility] EXTERNAL RESULT) Routine 10/25/2015 ABSTRACT HPV ([facility] EXTERNAL RESULT) Routine 10/25/2015 HCL HIV 1 & 2 ANTIBODY Routine 9 10:08 AM CDT Supervision of Other Normal from Last 3 Months or Most Recently Relevant to Health Maintenance Results * Hepatitis C Screen Reflex to HCV RNA Quant and Genotype (07/02/2021 4:49 PM ADULT PROBATION OFFICER) Hepatitis C Antibody Nonreactive Nonreactive 07/03/2021 7:21 PM ADULT PROBATION OFFICER [facility]/PROT/EN DO Blood STRUCTURE OF RIGHT UPPER LIMB / Unknown Venipuncture / Unknown 07/02/2021 4:49 PM ADULT PROBATION OFFICER 07/02/2021 4:49 PM ADULT PROBATION OFFICER Narrative SPECIALTY CORE/PROT/ENDO - 07/03/2021 7:21 PM ADULT PROBATION OFFICER Assay performance characteristics have not been established for newborns, infants, and children. us Sonya Smith FLIGHT NURSE FLORAL ARRANGER LAB - BLOOD ORDERABLES Final Result [facility] CORE/PROT/ENDO [facility] Specialty Core/Prot/Endo [address] [facility], [address] [place] [address], [facility] [phone] * (ABNORMAL) Comprehensive metabolic panel (BMP + [...] 10:02 AM CDT us Brigitte Acevedo APRN FLORAL ARRANGER LAB - BLOOD ORDERABLES Final Result [facility] [address] Lab (no room number, 1st floor of clinic) [place] [address], [facility] [phone] * ABSTRACT HPV-NO CHARGE (10/25/2015) HPV Abstract See Scanned Document [facility] 10/25/2015 Narrative [facility] - 10/25/2015 RESULTS FOUND IN CARE EVERYWHERE [facility] us Provider Outside LAB - HIM EXTERNAL RESULT Final Result [facility] [address] * ABSTRACT PAP-NO CHARGE (10/25/2015) PAP-ABSTRACT See Scanned Document [facility] 10/25/2015 Narrative [facility] - 10/25/2015 RESULTS FOUND IN CARE EVERYWHERE [facility] us Provider Outside LAB - HIM EXTERNAL RESULT Final Result Performing Organization Address City/[facility]/ZIP Co de Phone Number [facility] [address] * HIV 1 & 2, SCREEN (08/07/2008 10:08 AM CDT) HIV 1&2 Antibody Negative NEG [facility] 08/07/2008 10:0 8 AM CDT 08/07/2008 10:13 AM CDT us Yang Romero MD LABORATORY Final Resul t [facility] [address] [place] [address] from Last 3 Months or Most Recently Relevant to Health Maintenance Care Teams Layout Technician Relationship Specialty Start Date End Date No Ref-Primary, Physician PCP - General 06/01/24 [place] [address] [place] [address] Assigned PCP 08/23/24
--- OUTSIDE RECORDS SUMMARY | 2025-01-19 07:44 | XMS_ITS | Clinical Summary ---
Author Organization [email or web address] [facility] Address [address] [place] [address] Care Team Providers Care Panel Beater Name Role Phone Catherine Liang MD Unavailable [phone] Pcp, No Primary Care Provider Unavailabl e [...] signed 2017 02/15/2020 Overview (07/01/2018): Updated at [facility] 10/21/17 Primary [...] Supervision of high-risk 07/09/2017 11/01/2017 Overview (09/02/2017): [facility] TESTING ONLY Tabby NEXT VISIT ALERTS: polyhydramnios-Had amnio reduction 08/11/17 in [facility] Syed 08/11/17 Microarray sent 09/02 -- PRIMARY OB CALLED WITH EFW OF 4700g. Patient considering elective primary CS. She will come to [place] as planned for IOL on 09/04 but will be NPO, will juvenile counselor patient at that time and make final mode of delivery decision. Anesthesia and charge loader notified by John Roche 09/02 FUTURE APPOINTMENTS: [...] You REFERRING PHYSICIAN/PHONE/LAST UPDATE: Dr. Vinh You [phone] Primary MD approves scheduling of recommended ultrasounds/testing: yes SPECIALISTS/PHONE: Neurology consult ordered due to questionable seizure PUNEET: CARE COORDINATION: PERTINENT LABS: PERTINENT MEDS: 07/27/17 & 07/28/17 Betamethasone given MD PLAN OF CARE: CHECKLIST FOR SCHEDULING PROCEDURES: Call [phone] for Singletary and [phone] for [employer] (UTD cerclages Day Surgery 50038) Procedure: Induction Hospital: [place] Unit: L&D Date & Time of procedure: Wednesday, September 04, 2017 0700 Brown Score if induction: TBD at closer date Pertinent information: polyhydramnios and macrosomia Gestational age on procedure date? 39w0d MD doing procedure: OBH MM Date scheduled: 08/27/2017 when patient was 37w6d. Scheduling MD & RN: SA and GAUDENCIO Notifications: Hospitalist Delivery-OBH cotton tier notified through [employer] inbox? Yes [facility] MD cotton tier notified via [employer] inbox? Yes Primary MD notified via [employer] inbox? Yes Primary MD clinic called if not Manisha? Not Applicable On [facility] calendar? Yes Care Coordination notified? Not Applicable H&P/PPTL: PPTL permit signed? Not Applicable H&P and Plan in chart? Not Applicable [facility] appointment made for H&P with [employer] within 7 days of surgical procedure? Not [...] Diagnosed at 20w Ultrasound. 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 Delivery Location:[facility] 2013 SAB 7 AB 6w0 d [...] Health Maintenance Due Date Last Done Comments Hepatitis B series for 19+ (2 of 3 - 3-dose series) 12/03/1998 11/05/1998 HPV series for age 9-45 (1 - 3-dose SCDM series) 10/22/2011 Depression screening for age 12+ 09/29/2018 09/29/2017, 09/29/2017, 03/02/2017, Additional history exists Pap test for age 21-65 10/24/2018 6, 10/25/2015, 03/10/2012, Additional history exists BMI (ht and wt on same day) for age 18+ 04/19/2019 04/19/2018, 06/24/2017, 01/22/2017, Additional history exists COVID-19 vaccine series (2024- season) 2025 06/01/2021, 03/06/2021 Influenza Vaccine (#1) 2025 01/06/2017, 2015 Tetanus booster 06/28/2027 06/28/2017, 08/03, 12/31/2010 RSV vaccine for adults or (1 - 1-dose 75+ series) 10/22/2059 HIV for age 15-65 Completed 01/06/2017, , 03/08/2012, Additional history exists Hepatitis C screening for age 18-79 Completed 01/06/2017, 06/14/2009 Pneumococcal series for age 6-49 Aged Out No longer eligible based on patient's age to complete this topic Procedures Procedure Name Priority Date/Time Associated Diagnosis Comments ANTI HIV 1/2 Routine 01/06/2017 1:54 PM CDT Supervision of normal first , antepartum (HC) ANTI HCV Routine 01/06/2017 1:54 PM CDT Supervision of normal first , antepartum (HC) LAST MODEL DEPARTMENT SUPERVISOR THIN PREP PAP DIAGNOSTIC IMAGED Routine 10/25/2015 4:59 PM CDT Cervical cancer screening from Last 3 Months or Most Recently Relevant to Health Maintenance Results * ANTI HCV (01/06/2017 1:54 PM CDT) HEPATITIS C ANTIBODY Non-Reacti ve Non-Reacti ve 01/06/2017 10:41 PM CDT [facility] Blood BLOOD SPECIMEN / Unknown Venipuncture / Unknown 01/06/2017 1:54 PM CDT 01/06/2017 1:54 PM CDT [facility] LABORATORY - 01/06/2017 10:41 PM CDT Antibodies to HCV not detected; does not exclude the possibility of exposure to HCV. Daniela GAO SEND OUTS Final R esult [facility] [address] [place] [address], * ANTI HIV 1/2 (01/06/2017 1:54 PM CDT) HIV-1/HIV-2 ANTIBODY Non-Reacti ve Non-Reacti ve 01/06/2017 10:23 PM CDT [facility] Blood BLOOD SPECIMEN / Unknown Venipuncture / Unknown 01/06/2017 1:54 PM CDT 01/06/2017 1:54 PM CDT [facility] LABORATORY - 01/06/2017 10:23 PM CDT HIV-1 p24 and HIV-1/HIV-2 Ab not detected Daniela GAO SEND OUTS Final R esult [facility] [address] [place] [address], [place] * LAST MODEL DEPARTMENT SUPERVISOR THIN PREP PAP DIAGNOSTIC IMAGED (10/25/2015 4:59 PM CDT) LAST MODEL DEPARTMENT SUPERVISOR CYTOLOGY See Anatomic Pathology case 10/26/2015 5:00 PM CDT [facility] Other (Cervical) Non-Blood / Unknown 10/25/2015 4:59 PM CDT 10/25/2015 4:59 PM CDT us Franc Chatman NP PATHOLOGY/CYTOLOGY Final Re sult [facility] [address] [place] [address], [place] from Last 3 Months or Most Recently Relevant to Health Maintenance Insurance [employer] * Guarantor: [employer] Account Type Relation to Patient Date of Phone Billing Address Occ [facility]/[place] Employer [address] [place] [address] Advance Directives * Full Code (Latest Code [...] 8:42 PM 11/12/2012 9:31 PM Care Teams Panel Beater Relationship Specialty Start Date End Date Pcp, No . PCP - General 12/09/18 Catherine Liang MD [address] [facility] [address] [place] [address] Rheumatology Rheumatology 12/31/15
--- OUTSIDE RECORDS SUMMARY | 2025-01-19 07:44 | XMS_ITS | Encounter Summary ---
Author Organization [facility] Address [address] [place] [address] Care Team Providers Care Office Spec Name Role Phone Brigitte Acevedo JESSIE BOSWELL Unavailable [phone] No Ref-Primary, Physician Primary Care Provider Anmol Cruz MD Unavailable Sonya Smith APRN, CNP Primary Care Provider Sonya Smith APRN, CNP Unavailable [phone] Dipak Villegas MD Unavailable [phone] Fredo Culver MD Unavailable Sonya Smith APRN, CNP Unavailable [phone] No Ref-Primary, Physician Primary Care Provider Fredo Culver MD Unavailable Reason for Visit * Reason Onset Date Comments Patient Inquiry 07/07/2021 Encounter Details Date Type Department Care Team (Late st Contact Info) Description 07/07/2021 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 No / Unsure 07/02/2021 3:42 PM TELECOM MANAGER documented as of this encounter Miscellaneous Notes * Telephone Encounter - Brigitte Acevedo Ra, APRN CNP - 07/10/2021 11:00 AM TELECOM MANAGER She should be seen to evaluate, if not in office, in urgent care. EZE COM MANAGER * Telephone Encounter - Stacey Ramachandran RN - 07/09/2021 5:45 PM CST Will route to POD since Abiola Luis is out of the office for the next 2 weeks. Stacey Ramachandran RN COM MANAGER * Telephone Encounter - Azeem Velez RN - 07/08/2021 5:13 PM CST Please see patient MyChart message regarding follow up on leg bump. Last OV w/ V.O. 07/02/21. Please review and advise. Azeem Griffin RN COM MANAGER documented in this encounter Plan of Treatment Not on file documented as of this encounter Visit Diagnoses Not on filedocumented in this encounter Additional Health Concerns Assessment Noted Time PHQ-9 Depression Total Score: 0 06/24/19 1:03 PM TELECOM MANAGER documented as of this encounter Care Teams Office Spec Relationship Specialty Start Date End Date No Ref-Primary, Physician PCP - General 06/15/21 07/11/21 Sonya Smith APRN AUTOMOTIVE SHOP FOREMAN [address] [facility] [place] [address] PCP - General Family Practice 07/12/21 05/31/24 No Ref-Primary, Physician PCP - General 06/01/24 Brigitte Acevedo APRN AUTOMOTIVE SHOP FOREMAN [address] [place] [address] Assigned PCP 12/08/20 07/12/21 Anmol Cruz MD Assigned Musculoskeletal Provider 06/22/21 12/25/22 Sonya Smith APRN AUTOMOTIVE SHOP FOREMAN [address] [facility] [place] [address] Assigned PCP 07/13/21 01/08/23 Dipak Villegas MD [address] [place] [address] Assigned OBGYN Provider 03/28/22 [place] [address] [place] [address] Assigned PCP 01/09/23 09/22/23 Sonya Smith APRN AUTOMOTIVE SHOP FOREMAN [address] [facility] [place] [address] Assigned PCP 09/23/23 08/22/24 [place] [address] [place] [address] Assigned PCP 08/23/24 documented as of this encounter
[2025-01-19 07:47] VITALS: BP 138/71; PULSE 87; RESP 18; TEMP 36.8; O2SAT 99; BMI 37.2
--- NOTE | 2025-01-19 08:06 | ED_ITS ---
HPI - Dental/Oral General Chief complaint: Dental/Oral/Mouth Injury/Pain Stated complaint: tooth pain Time Seen by Provider: 01/19/25 07:57 History of Present Illness HPI Narrative: Patient is a 39-year-old woman up-to-date on her tetanus shot who comes in with dental pain on the left premolar region. She has had to have tooth pulled in the past. She has had no fevers no chills no night sweats no cough no shortness of breath. No stiff neck. The pain is 6/10. She is unable to get in with a dentist. Related Data Previous Rx's ?Medication ?Instructions ?Recorded amoxicillin 500 mg capsule 500 mg PO Q8H #15 caps 01/01 01/25 Allergies Allergy/AdvReac Type Severity Reaction Status Date / Time No Known Drug Allergies Allergy Verified 01/19/25 07:53 Review of Systems Status of ROS: Reports: 10 or more systems reviewed and unremarkable except as noted in History and below PFSH PFS Social History Smoking Status: Former smoker Do you use any of these nicotine containing products: None Second hand tobacco smoke exposure: No How often do you have a drink containing alcohol: monthly or less How many standard drinks containing alcohol do you have on a typical day: 1 or 2 How often do you have six or more drinks on one occasion: Never AUDIT-C Alcohol total score: 1 Non-prescribed substance use: denies use service: No Exam Narrative: Exam Narrative: EXAM GENERAL: Patient appears comfortable and well. Poor dentition noted. EYES: No scleral icterus. LYMPH: No supraclavicular or cervical lymphadenopathy. SKIN: Visible skin seen during exam normal or with benign process only. EXT: No dependent lower extremity pedal edema. HEART: Regular rate and rhythm with no murmurs, rubs, or gallops. LUNGS: Clear to auscultation bilaterally with no crackles or wheezes. ABD: Soft, non tender, non distended. PSYCH: Good eye contact, speech is not pressured. Const: Vital Signs, click to edit/add: Vital Signs - 24 hr 01/19/25 07:47 Temperature 98.2 F Pulse Rate [Right Pulse Oximeter] 87 Respiratory Rate 18 Blood Pressure [Ri ght Upper Arm] 138/71 Pulse Oximetry 99 Oxygen Delivery Me thod Room Air Course Vital Signs Vital signs: Initial Vital Signs Temperature 98.2 F 01/19/25 07:47 Temperature Source Temporal Artery Scan 01/19/25 07:47 Pulse Rate 87 01/19/25 07:47 Pulse Rhythm Regular 01/19/25 07:47 Pulse Strength 3+ Normal 01/19/25 07:47 Respiratory Rate 18 01/19/25 07:47 Blood Pressure 138/71 01/19/25 07:47 Blood Pressure Mean 93 01/19/25 07:47 Blood Pressure Position Sitting 01/19/25 07:47 Pulse Oximetry 99 01/19/25 07:47 Oxygen Delivery Method Room Air 01/19/25 07:47 Vital Signs Temperature 98.2 F 01/19/25 07:47 Pulse Rate 87 01/19/25 07:47 Respiratory Rate 18 01/19/25 07:47 Blood Pressure 138/71 01/19/25 07:47 Pulse Oximetry 99 01/19/25 07:47 Oxygen Delivery Method Room Air 01/19/25 07:47 Temperature 98.2 F 01/19/25 07:47 Pulse Rate 87 01/19/25 07:47 Respiratory Rate 18 01/19/25 07:47 Blood Pressure 138/71 01/19/25 07:47 Pulse Oximetry 99 01/19/25 07:47 Oxygen Delivery Method Room Air 01/19/25 07:47 MDM - Dental/Oral MDM Narrative Medical decision making narrative: Patient is given Toradol 30 mg. She is to drink plenty fluids. Did place her on amoxicillin and recommend dental follow-up. Discharge Plan Discharge Clinical Impression: Toothache Patient Disposition: Home, Self-Care Condition: Stable Instructions: Toothache (ED) Additional Instructions: Amoxicillin as directed Tylenol Motrin no more than 600 mg 3 times a day. Follow-up with your dentist as needed. Activity Level: No Restrictions Discharge Diet: Regular Prescriptions: New amoxicillin 500 mg capsule 500 mg PO Q8H Qty: 15 0RF Follow Up/Referrals: Provider,Not a Local [Primary Care Provider, Family Practice] Stand Alone Forms: MyHealth Info Instructions
== END 2025-01-19 08:18 | disposition home or self-care (01) ==
PROVIDERS: Emergency Provider Internal Medicine
DX: K08.89 Other specified disorders of teeth and supporting structures (principal)
CPT/HCPCS: 96372; 99283; J1885

== ENCOUNTER 2025-03-23 15:08 | Emergency (ER) | payer MEDICAID, SELFPAY ==
--- OUTSIDE RECORDS SUMMARY | 2025-03-23 15:10 | XMS_ITS | Encounter Summary ---
Author Organization [facility] Address [address] [place] [address] Care Team Providers Care Gas Regulator Repairer Name Role Phone Anmol Cruz MD Unavailable Sonya Smith APRN BOTTLER HELPER Primary Care Provider Sonya Smith APRN BOTTLER HELPER Unavailable [phone] Dipak Villegas MD Unavailable [phone] Fredo Culver MD Unavailable Sonya Smith APRN BOTTLER HELPER Unavailable [phone] No Ref-Primary, Physician Primary Care Provider Fredo Culver MD Unavailable Encounter Details Date Type Department Care Team (Late st Contact Info) Description 03/24/2022 MyC Medical Advice [facility] [address] [place] [address] Starr Mendoza Social History Tobacco [...] on file Legal Sex 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 No / Unsure 03/24/2022 8:49 AM WICK AND BASE ASSEMBLER documented as of this encounter Plan of Treatment Not on file documented as of this encounter Visit Diagnoses Not on filedocumented in this encounter Additional Health Concerns Assessment Noted Time PHQ-9 Depression Total Score: 0 06/24/19 1:03 PM WICK AND BASE ASSEMBLER documented as of this encounter Care Teams Gas Regulator Repairer Relationship Specialty Start Date End Date Sonya Smith APRN BOTTLER HELPER [address] [place] [address] PCP - General Family Practice 07/12/21 05/31/24 No Ref-Primary, Physician PCP - General 06/01/24 Anmol Cruz MD Assigned Musculoskeletal Provider 06/22/21 12/25/22 Sonya Smith APRN BOTTLER HELPER [address] [place] [address] Assigned PCP 07/13/21 01/08/23 Dipka Villegas MD [address] [place] [address] Assigned OBGYN Provider 03/28/22 [place] [address] [place] [address] Assigned PCP 01/09/23 09/22/23 Sonya Smith APRN BOTTLER HELPER [address] [facility] [place] [address] Assigned PCP 09/23/23 08/22/24 [place] [address] [address] [address] Assigned PCP 08/23/24 documented as of this encounter
--- OUTSIDE RECORDS SUMMARY | 2025-03-23 15:10 | XMS_ITS | Clinical Summary ---
Author Organization [employer] [facility] Address [address] [place] [address] Care Team Providers Care Home Theatre Technician Name Role Phone Catherine Liang MD Unavailable [phone] Pcp, No Primary Care Provider Unavailabl e [...] daily if needed (withdrawal sxs). 12 tablet 10/11/20 20 Active hydrOXYzine HCL (ATARAX) 25 mg [...] Supervision of high-risk 07/09/2017 11/01/2017 Overview (09/02/2017): [facility] TESTING ONLY Tabby NEXT VISIT ALERTS: polyhydramnios-Had amnio reduction 08/11/[address] [facility] [address] Syed 08/11/17 Microarray sent 09/02 -- PRIMARY OB CALLED WITH EFW OF 4700g. Patient considering elective primary CS. She will come to [place] as planned for IOL on 09/04 but will be NPO, will counseling case manager patient at that time and make final mode of delivery decision. Anesthesia and closing coordinator notified by John Roche 09/02 FUTURE APPOINTMENTS: [...] You REFERRING PHYSICIAN/PHONE/LAST UPDATE: Dr. Vinh You [phone] Primary MD approves scheduling of recommended ultrasounds/testing: yes SPECIALISTS/PHONE: Neurology consult ordered due to questionable seizure PUNEET: CARE COORDINATION: PERTINENT LABS: PERTINENT MEDS: 07/27/17 & 07/28/17 Betamethasone given MD PLAN OF CARE: CHECKLIST FOR SCHEDULING PROCEDURES: Call [phone] for Singletary and [phone] for [employer] (UTD cerclages Day Surgery [address]) Procedure: Induction Hospital: [place] Unit: L&D Date & Time of procedure: Wednesday, September 04, 2017 0700 Brown Score if induction: TBD at closer date Pertinent information: polyhydramnios and macrosomia Gestational age on procedure date? 39w0d MD doing procedure: OBH MM Date scheduled: 08/27/2017 when patient was 37w6d. Scheduling MD & RN: and GAUDENCIO Notifications: Hospitalist Delivery-OBH transportation equipment painter notified through [email or web address] inbox? Yes [facility] MD transportation equipment painter notified via [email or web address] inbox? Yes Primary MD notified via [email or web address] inbox? Yes Primary MD clinic called if not Manisha? Not Applicable On [facility] calendar? Yes Care Coordination notified? Not Applicable H&P/PPTL: PPTL permit signed? Not Applicable H&P and Plan in chart? Not Applicable [facility] appointment made for H&P with COVERSTITCH BINDER within 7 days of surgical procedure? Not [...] Diagnosed at 20w Ultrasound. Per consultation with [facility] 07/12/2012: very small risk of genetic [...] 7lbs 5oz. No tears or stitches. 3. 12/17/2009 - Normal . Induced at 40 [...] gnancy in third trimester 11/01/2017 contractions 018 Encounters Date Type Department Care Team Description 01/29/2025 12:32 PM CDT - 01/29/2025 1:25 PM CDT Emergency [address] [address] Danielle Paige PA Pain, dental (Primary Dx); Dental infection Discharge Disposition: Home Self Care 01/29/2025 Travel from Last 3 Months Immunizations Immunization Administration Dates Next Due Hepatitis [...] to Q uit: No; Counseling Given: Yes Comments:1/2 ppd Alcohol Use Standard Drinks/Week Comments Yes [...] or yelled at (see row info)? 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 Delivery Location:[facility] 2013 7 AB 6w0 d SPONTA NEOUS 2017 Term 39w 1d 4.23 kg (9 lb 5.2 oz) M CS-LTr anv Spinal N Nataly Vieira on Dr. Rama patton Complications:None Last Filed Vital Signs Vital Sign Reading Time Taken Comments Blood Pressure 145/65 01/29/2025 12:16 PM CDT Pulse 92 01/29/2025 12:16 PM CDT Temperature 36.8 C (98.3 F) 01/29/2025 12:16 PM CDT Respiratory Rate 18 01/29/2025 12:16 PM CDT Oxygen Saturation 97% 01/29/2025 12:16 PM CDT Inhaled Oxygen Concentration - - Weight 93 kg (205 lb) 01/29/2025 12:16 PM CDT Height 160 cm (5' 3) 01/29/2025 12:16 PM CDT Body Mass Index 36.31 01/29/2025 12:16 PM CDT Plan of Treatment Health Maintenance [...] 04/19/2019 04/19/2018, 06/24/2017, 01/22/2017, Additional history exists Influenza Vaccine (#1) 2025 01/06/2017, 2015 Tetanus booster 06/28/2027 06/28/2017, 04/3 , 12/31/2010 RSV vaccine for adults or (1 [...] Supervision of normal first , antepartum (HC) FINANCIAL AUDITOR THIN PREP PAP DIAGNOSTIC IMAGED Routine 10/25/2015 4:59 PM CDT Cervical cancer screening from Last 3 Months or Most Recently Relevant to Health Maintenance Results * ANTI HCV (01/06/2017 1:54 PM CDT) HEPATITIS C ANTIBODY Non-Reacti ve Non-Reacti ve 01/06/2017 10:41 PM CDT [facility] Blood BLOOD SPECIMEN / Unknown Venipuncture / Unknown 01/06/2017 1:54 PM CDT 01/06/2017 1:54 PM CDT Narrative [facility] - 01/06/2017 10:41 PM CDT Antibodies to HCV not detected; does not exclude the possibility of exposure to HCV. us Daniela GAO SEND OUTS Final R esult [facility] [address] [place] [address], [place] * ANTI HIV 1/2 (01/06/2017 1:54 PM CDT) HIV-1/HIV-2 ANTIBODY Non-Reacti ve Non-Reacti ve 01/06/2017 10:23 PM CDT [facility] Blood BLOOD SPECIMEN / Unknown Venipuncture / Unknown 01/06/2017 1:54 PM CDT 01/06/2017 1:54 PM CDT [facility]arrative [facility] - 01/06/2017 10:23 PM CDT HIV-1 p24 and HIV-1/HIV-2 Ab not detected us Daniela GAO SEND OUTS Final R esult [facility] [address] [place] [address], [place] * FINANCIAL AUDITOR THIN PREP PAP DIAGNOSTIC IMAGED (10/25/2015 4:59 PM CDT) FINANCIAL AUDITOR CYTOLOGY See Anatomic Pathology case 10/26/2015 5:00 PM CDT [facility] Other (Cervical) Non-Blood / Unknown 10/25/2015 4:59 PM CDT 10/25/2015 4:59 PM CDT us Fracn Chatman COVERSTITCH BINDER PATHOLOGY/CYTOLOGY Final Re sult [facility] [address] [place] [address], [place] from Last 3 Months or Most Recently Relevant to Health Maintenance Insurance [facility] Member Subscriber Plan / Payer (Ef fective 2025-Present) Name:Evelyn Jules Relation to Subscriber:Self Name:Evelyn Jules Payer ID:Not on file Group ID:Not on file Type:Not on file Address: FOR [facility] [place] [id number] Advance Directives * Full Code (Latest Code [...] 8:42 PM 11/12/2012 9:31 PM Care Teams Home Theatre Technician Relationship Specialty Start Date End Date Pcp, No . PCP - General 12/09/18 Catherine Liang MD [address] [facility] [address] [place] [address] Rheumatology Rheumatology 12/31/15
--- OUTSIDE RECORDS SUMMARY | 2025-03-23 15:10 | XMS_ITS | Encounter Summary ---
Author Organization [facility] [place] Address [address] [place] [address] Care Team Providers Care Electronics Production Supervisor Name Role Phone Brigitte Acevedo JESSIE BOSWELL Unavailable [phone] No Ref-Primary, Physician Primary Care Provider Anmol Cruz MD Unavailable Sonya Smith APRN, CNP Primary Care Provider Sonya Smith APRN, CNP Unavailable [phone] Dipak Villegas MD Unavailable + [phone] Fredo Culver MD Unavailable Sonya Smith APRN, CNP Unavailable [phone] No Ref-Primary, Physician Primary Care Provider Fredo Culver MD Unavailable Reason for Visit * Reason Onset Date Comments Patient Inquiry 07/07/2021 Encounter Details Date Type Department Care Team (Late st Contact Info) Description 07/07/2021 [facility] [address] [place] [address] Sonya Smith APRN CNP [address] [place] [address] Patient Inquiry Social History Tobacco [...] on file Legal Sex Female 3:14 AM INSURANCE CLAIMS PROCESSOR Gender Identity Not on file Sexual Orientation Not on file COVID-19 Exposure Response Date Recorded In the last month, have you been in contact with someone who was confirmed or suspected to have Coronavirus / COVID-19? No / Unsure 07/02/2021 3:42 PM INSURANCE CLAIMS PROCESSOR documented as of this encounter Miscellaneous Notes * Telephone Encounter - Brigitte Acevedo Ra, APRN CNP - 07/10/2021 11:00 AM INSURANCE CLAIMS PROCESSOR She should be seen to evaluate, if not in office, in urgent care. EZE RANCE CLAIMS PROCESSOR * Telephone Encounter - Stacey Ramachandran RN - 07/09/2021 5:45 PM CST Will route to POD since Abiola [place] is out of the office for the next 2 weeks. Stacey Ramachandran RN RANCE CLAIMS PROCESSOR * Telephone Encounter - Azeem Velez RN - 07/08/2021 5:13 PM CST Please see patient MyChart message regarding follow up on leg bump. Last OV w/ V.O. 07/02/21. Please review and advise. Azeem Griffin RN RANCE CLAIMS PROCESSOR documented in this encounter Plan of Treatment Not on file documented as of this encounter Visit Diagnoses Not on filedocumented in this encounter Additional Health Concerns Assessment Noted Time PHQ-9 Depression Total Score: 0 06/24/19 1:03 PM INSURANCE CLAIMS PROCESSOR documented as of this encounter Care Teams Electronics Production Supervisor Relationship Specialty Start Date End Date No Ref-Primary, Physician PCP - General 06/15/21 07/11/21 Sonya Smith APRN JOURNEYMAN PIPEFITTER [address] [facility] [place] [address] PCP - General Family Practice 07/12/21 05/31/24 No Ref-Primary, Physician PCP - General 06/01/24 Brigitte Acevedo APRN JOURNEYMAN PIPEFITTER [address] [place] [address] Assigned PCP 12/08/20 07/12/21 Anmol Cruz MD Assigned Musculoskeletal Provider 06/22/21 12/25/22 Sonya Smith APRN JOURNEYMAN PIPEFITTER [address] [facility] [place] [place] [address] Assigned PCP 07/13/21 01/08/23 Dipak Villegas MD [address] [place] [address] Assigned OBGYN Provider 03/28/22 [place] [address] [place] [address] Assigned PCP 01/09/23 09/22/23 Sonya Smith APRN JOURNEYMAN PIPEFITTER [address] [facility] [place] [place] [address] Assigned PCP 09/23/23 08/22/24 [place] [address] [place] [address] Assigned PCP 08/23/24 documented as of this encounter
--- OUTSIDE RECORDS SUMMARY | 2025-03-23 15:10 | XMS_ITS | Clinical Summary ---
Author Organization [facility] Address [address] [place] [address] Care Team Providers Care Internet Developer Name Role Phone No Ref-Primary, Physician Primary [...] Bilateral. Assessment & Plan (07/06/2021 7:12 PM COMMUNITY RELATIONS DIRECTOR): Bilateral leg contusions lower leg. Seen at ED with X-rays that were negative. Has been going to work. 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 [...] file Legal Sex Female 3:14 AM COMMUNITY RELATIONS DIRECTOR Gender Identity Not on file Sexual Orientation Not on file Last Filed Vital Signs Vital Sign Reading Time Taken Comments Blood Pressure 123/68 06/01/2024 10:28 AM COMMUNITY RELATIONS DIRECTOR Pulse 74 06/01/2024 10:28 AM COMMUNITY RELATIONS DIRECTOR Temperature 36.8 C (98.2 F) 06/01/2024 8:49 AM COMMUNITY RELATIONS DIRECTOR Respiratory Rate 18 06/01/2024 10:28 AM COMMUNITY RELATIONS DIRECTOR Oxygen Saturation 99% 06/01/2024 10:28 AM COMMUNITY RELATIONS DIRECTOR Inhaled Oxygen Concentration - - Weight 98 kg (216 lb 0.8 oz) 06/01/2024 8:49 AM COMMUNITY RELATIONS DIRECTOR Height 160 cm (5' 3) 06/01/2024 8:49 AM COMMUNITY RELATIONS DIRECTOR Body Mass Index 38.27 06/01/2024 8:49 AM COMMUNITY RELATIONS DIRECTOR Plan of Treatment Health Maintenance Due Date [...] QUANT AND GENOTYPE Routine 07/02/2021 4:49 PM COMMUNITY RELATIONS DIRECTOR Routine general medical examination at a health care facility COMPREHENSIVE METABOLIC PANEL Routine 12/03/2020 10:01 AM CDT RUQ abdominal pain ABSTRACT PAP ([facility] EXTERNAL RESULT) Routine 10/25/2015 ABSTRACT HPV ([facility] EXTERNAL RESULT) Routine 10/25/2015 HCL HIV 1 & 2 ANTIBODY Routine 9 10:08 AM CDT Supervision of Other Normal from Last 3 Months or Most Recently Relevant to Health Maintenance Results * Hepatitis C Screen Reflex to HCV RNA Quant and Genotype (07/02/2021 4:49 PM COMMUNITY RELATIONS DIRECTOR) Hepatitis C Antibody Nonreactive Nonreactive 07/03/2021 7:21 PM COMMUNITY RELATIONS DIRECTOR [facility] SPECIALTY CORE/PROT/EN DO Blood STRUCTURE OF RIGHT UPPER LIMB / Unknown Venipuncture / Unknown 07/02/2021 4:49 PM COMMUNITY RELATIONS DIRECTOR 07/02/2021 4:49 PM COMMUNITY RELATIONS DIRECTOR Narrative SPECIALTY CORE/PROT/ENDO - 07/03/2021 7:21 PM COMMUNITY RELATIONS DIRECTOR Assay performance characteristics have not been established for newborns, infants, and children. us Sonya Smith ENGAGEMENT LEAD STAVE SAW OPERATOR LAB - BLOOD ORDERABLES Final Result [facility] SPECIALTY CORE/PROT/ENDO [facility] Specialty Core/Prot/Endo [address] [facility], [address] [place] [address], [facility] [phone] * (ABNORMAL) Comprehensive metabolic panel (BMP + Alb, Alk Phos, ALT, AST, Total. Bili, TP) (12/03/2020 10:01 AM CDT) Sodium 140 133 - 144 mmol/L 12/03/2020 2:39 PM CDT [facility] Potassium (POCT) 4.0 3.4 - 5.3 mmol/L 12/03/2020 2:39 PM CDT [facility] Chloride (POCT) 111(H) 94 - 109 mmol/L 12/03/2020 2:39 PM CDT [facility] Carbon Dioxide (CO2) (POCT) 28 20 - 32 mmol/L 12/03/2020 2:39 PM CDT [facility] Anion Gap (POCT) 1(L) 3 - 14 mmol/L 12/03/2020 2:39 PM CDT [facility] Urea Nitrogen (POCT) 11 7 - 30 mg/dL 12/03/2020 2:39 PM CDT [facility] Creatinine 0.74 0.52 - 1.04 mg/dL 12/03/2020 2:39 PM CDT [facility] Calcium 9.6 8.5 - 10.1 mg/dL 12/03/2020 2:39 PM CDT [facility] Glucose (POCT) 86 70 - 99 mg/dL 12/03/2020 2:39 PM CDT [facility] Alkaline Phosphatase 70 40 - 150 U/L 12/03/2020 2:39 PM CDT [facility] AST 12 0 - 45 U/L 12/03/2020 2:39 PM CDT [facility] ALT 27 0 - 50 U/L 12/03/2020 2:39 PM CDT [facility] Protein Total 7.7 6.8 - 8.8 g/dL 12/03/2020 2:39 PM CDT [facility] Albumin (POCT) 4.3 3.4 - 5.0 g/dL 12/03/2020 2:39 [...] 10:02 AM CDT us Brigitte Acevedo APRN STAVE SAW OPERATOR LAB - BLOOD ORDERABLES Final Result [facility] [address] Lab (no room number, 1st floor of clinic) [place] [address] [phone] * ABSTRACT HPV-NO CHARGE (10/25/2015) HPV Abstract See Scanned Document [facility] LABORATORY 10/25/2015 Narrative [facility] - 10/25/2015 RESULTS FOUND IN CARE EVERYWHERE [facility] us Provider Outside LAB - HIM EXTERNAL RESULT Final Result [facility] [address] * ABSTRACT PAP-NO CHARGE (10/25/2015) PAP-ABSTRACT See Scanned Document [facility] 10/25/2015 Narrative [facility] - 10/25/2015 RESULTS FOUND IN CARE EVERYWHERE [facility] us Provider Outside LAB - HIM EXTERNAL RESULT Final Result [facility] [address] * HIV 1 & 2, SCREEN (08/07/2008 10:08 AM CDT) HIV 1&2 Antibody Negative NEG [facility] 08/07/2008 10:0 8 AM CDT 08/07/2008 10:13 AM CDT us Yang Romero MD LABORATORY Final Resul t [facility] [address] [place] [address] from Last 3 Months or Most Recently Relevant to Health Maintenance Care Teams Internet Developer Relationship Specialty Start Date End Date No Ref-Primary, Physician PCP - General 06/01/24 [place] [address] [place] [address] (work) Assigned PCP 08/23/24
--- OUTSIDE RECORDS SUMMARY | 2025-03-23 15:10 | XMS_ITS | Clinical Summary ---
Author Organization [facility] Address [address] [place] [address] Care Team Providers Care Patient Account Analyst Name Role Phone No Primary/Referring, Phy Primary Care Provider Unavailable Source Comments You are receiving this document as you are listed as the primary care provider,follow-up provider, or the patient has been referred to you for consultation.This is in compliance with the Medicare and[facility] EHR Incentive Program,which states Providers who transition their patient to another setting of careor provider of care or refers their patient to another provider of care shouldprovide summary care record for each transition of care or referral. [facility] Allergies No known active allergies Medications levonorgestrel [...] Comments Blood Pressure 102/60 03/15/2020 2:00 PM FRAME TABLE OPERATOR Pulse 85 03/15/2020 2:00 PM FRAME TABLE OPERATOR Temperature 36.9 C (98.5 F) 03/15/2020 2:00 PM FRAME TABLE OPERATOR Respiratory Rate 16 06/02/2019 2:04 PM FRAME TABLE OPERATOR Oxygen Saturation 98% 03/15/2020 2:00 PM FRAME TABLE OPERATOR Inhaled Oxygen Concentration - - Weight 89.4 kg (197 lb) 03/15/2020 2:00 PM FRAME TABLE OPERATOR Height 162.6 cm (5' 4) 09/27/2017 5:18 [...] SCDM series) 10/22/2011 COVID-19 Vaccine (1 - 2024-2 6 season) 2025 Influenza Vaccine (#1) 2025 7, [...] age to complete this topic Care Teams Patient Account Analyst Relationship Specialty Start Date End Date No Primary/Referring, Pantera PCP - General 09/27/17
--- OUTSIDE RECORDS SUMMARY | 2025-03-23 15:10 | XMS_ITS | Encounter Summary ---
Author Organization [facility] Address [address] [place] [address] Care Team Providers Care Multiple Punch Press Operator Name Role Phone Anmol Cruz MD Unavailable Sonya Smith APRN BUSINESS SYSTEMS ADMINISTRATOR Primary Care Provider Sonya Smith APRN BUSINESS SYSTEMS ADMINISTRATOR Unavailable [phone] Dipak Villegas MD Unavailable + [phone] Fredo Culver MD Unavailable Sonya Smith APRN BUSINESS SYSTEMS ADMINISTRATOR Unavailable [phone] No Ref-Primary, Physician Primary Care Provider Fredo Culver MD Unavailable Encounter Details Date Type Department Care Team (Late st Contact Info) Description 03/24/2022 [facility] Medical Advice [facility] [address] [place] [address] Dipak Villegas MD [address] [place] [address] Social History Tobacco Use Types [...] on file Legal Sex Female 3:14 AM PRODUCE CLERK Gender Identity Not on file Sexual Orientation Not on file COVID-19 Exposure Response Date Recorded In the last 10 days, have yo u been in contact with someone who was confirmed or suspected to have Coronavirus/COVID-19? No / Unsure 03/24/2022 8:49 AM PRODUCE CLERK documented as of this encounter Miscellaneous Notes * Telephone Encounter - Adrianna Escamilla RN - 03/24/2022 2:46 PM CST Pt advised via my chart. Samaria Escamilla RN UCE CLERK * Telephone Encounter - Dipak Villegas MD - 03/24/2022 2:40 PM PRODUCE CLERK I would advise her to return to [...] go forward with it. Dipak Villegas MD UCE CLERK * Telephone Encounter - Adrianna Escamilla RN - 03/24/2022 1:04 PM CST Please address the my chart message. Last OV 03/20/22. Pelvic US was done on 03/24/22. Samaria Escamilla RN UCE CLERK documented in this encounter Plan of Treatment Not on file documented as of this encounter Visit Diagnoses Not on filedocumented in this encounter Additional Health Concerns Assessment Noted Time PHQ-9 Depression Total Score: 0 06/24/19 1:03 PM PRODUCE CLERK documented as of this encounter Care Teams Multiple Punch Press Operator Relationship Specialty Start Date End Date Sonya Smith APRN BUSINESS SYSTEMS ADMINISTRATOR [address] [place] [address] PCP - General Family Practice 07/12/21 05/31/24 No Ref-Primary, Physician PCP - General 06/01/24 Anmol Cruz MD Assigned Musculoskeletal Provider 06/22/21 12/25/22 Sonya Smith APRN BUSINESS SYSTEMS ADMINISTRATOR [address] [place] [address] Assigned PCP 07/13/21 01/08/23 Dipak Villegas MD [address] [place] [address] Assigned OBGYN Provider 03/28/22 [place] [address] [place] [address] Assigned PCP 01/09/23 09/22/23 Sonya Smith APRN BUSINESS SYSTEMS ADMINISTRATOR [address] [facility] [place] [address] Assigned PCP 09/23/23 08/22/24 [place] [address] [place] [address] Assigned PCP 08/23/24 documented as of this encounter
--- OUTSIDE RECORDS SUMMARY | 2025-03-23 15:10 | XMS_ITS | Encounter Summary ---
Author Organization [facility] Address [address] [place] [address] Care Team Providers Care Breaker Up Name Role Phone Sonya Smith APRN DIRECTOR OF PARTNERSHIPS Primary Care Provider Dipak Villegas MD Unavailable [phone] Fredo Culver MD Unavailable Sonya Smith APRN DIRECTOR OF PARTNERSHIPS Unavailable [phone] No Ref-Primary, Physician Primary Care Provider Fredo Culver MD Unavailable Encounter Details Date Type Department Care Team (Late st Contact Info) Description 04/01/2023 [facility] F M [address] [address] Nate Yost MA Social History [...] on file Legal Sex Female 3:14 AM SINGLE ENDING MACHINE OPERATOR Gender Identity Not on file Sexual Orientation Not on file documented as of this encounter Plan of Treatment Not on file documented as of this encounter Visit Diagnoses Not on filedocumented in this encounter Additional Health Concerns Assessment Noted Time PHQ-9 Depression Total Score: 0 06/24/19 1:03 PM SINGLE ENDING MACHINE OPERATOR documented as of this encounter Care Teams Breaker Up Relationship Specialty Start Date End Date Sonya Smith APRN DIRECTOR OF PARTNERSHIPS [address] [facility] [place] [address] PCP - General Family Practice 07/12/21 05/31/24 No Ref-Primary, Physician PCP - General 06/01/24 Dipak Villegas MD [address] [place] [address] Assigned OBGYN Provider 03/28/22 [place] [address] [place] [address] Assigned PCP 01/09/23 09/22/23 Sonya Smith APRN DIRECTOR OF PARTNERSHIPS [address] [facility] [place] [address] Assigned PCP 09/23/23 08/22/24 [place] [address] [place] [address] Assigned PCP 08/23/24 documented as of this encounter
[2025-03-23 15:24] VITALS: BP 142/97; PULSE 84; RESP 18; TEMP 36.4; O2SAT 97
--- NOTE | 2025-03-23 15:43 | ED.GENADULT ---
HPI - General Adult General Time Seen by Provider: 15:44 Date Seen: 03/23/25 Chief complaint: Sore Throat Stated complaint: Possible sore throat Time Seen by Provider: 03/23/25 15:41 Source: patient Mode of arrival: ambulatory Limitations: no limitations History of Present Illness HPI narrative: 39-year-old female who comes in today with concern for neck swelling. She denies sore throat. Child with strep. She feels like she has swelling in her neck and also notes that she saw white spots on her left tonsil. No fevers or chills. Related Data Home Medications ?Medication ?Instructions ?Recorded ?Confirmed No Known Home Medications 03/23/25 03/23/25 Allergies Allergy/AdvReac Type Severity Reaction Status Date / Time No Known Drug Allergies Allergy Verified 03/23/25 15:29 PFSH [facility] Social History Smoking Status: Former smoker Do you use any of these nicotine containing products: None Second hand tobacco smoke exposure: No How often do you have a drink containing alcohol: monthly or less How many standard drinks containing alcohol do you have on a typical day: 1 or 2 How often do you have six or more drinks on one occasion: Never AUDIT-C Alcohol total score: 1 Non-prescribed substance use: denies use service: No Exam Narrative: Exam Narrative: General: Well-developed and well-nourished, no acute distress Head: Atraumatic and normocephalic Eyes: Pupils are equal reactive, extraocular motions intact, conjunctiva clear ENT: Posterior pharynx with mild erythema, no tonsillar soft palate asymmetry. There is a tonsillith on the left tonsil. Neck: No midline cervical tenderness, full spontaneous range of motion the neck, trachea midline, bilateral anterior cervical adenopathy Heart: Regular rate and rhythm no murmurs or thrills Lungs: Clear to auscultation bilaterally without wheezes or crackles Abdomen: Soft, nontender, nondistended with active bowel sounds Musculoskeletal: No tenderness, deformity, or edema Neurologic: Awake, alert, and oriented x3, no gross focal neurologic deficits, cranial nerves intact as tested Psych: Mood and affect are appropriate Skin: No rashes Const: Vital Signs, click to edit/add: Vital Signs - 24 hr 03/23/25 15:24 Temperature 97.6 F Pulse Rate [Right Pulse Oximeter] 84 Respiratory Rate 18 Blood Pressure [Le ft Upper Arm] 142/97 H Pulse Oximetry 97 Oxygen Delivery Me thod Room Air Course Course ED Course: Additional records reviewed: Emergency department January 19 patient was seen for toothache Additional history from: None Care impacted by: Smoking Testing considered but not performed: See ED course Patient presents today with feeling of swollen lymph nodes in her neck as well as white spot on her left tonsil. Strep exposure. On exam, she does have some tender mildly enlarged lymph nodes in the bilateral anterior cervical chain. There is a tonsillith on the left tonsil, there is some mild posterior pharyngeal erythema. Strep test is ordered. If this is positive, patient will be started on amoxicillin. If negative, patient be discharged with continued symptom management Reevaluation(s) Time of Reevaluation #1: 16:06 Reevaluation #1: Strep test is negative, patient is stable for discharge. Vital Signs Vital signs: Initial Vital Signs Temperature 97.6 F 03/23/25 15:24 Temperature Source Temporal Artery Scan 03/23/25 15:24 Pulse Rate 84 03/23/25 15:24 Pulse Rhythm Regular 03/23/25 15:24 Pulse Strength 3+ Normal 03/23/25 15:24 Respiratory Rate 18 03/23/25 15:24 Blood Pressure 142/97 H 03/23/25 15:24 Blood Pressure Mean 112 H 03/23/25 15:24 Blood Pressure Position Sitting 03/23/25 15:24 Pulse Oximetry 97 03/23/25 15:24 Oxygen Delivery Method Room Air 03/23/25 15:24 Vital Signs Temperature 97.6 F 03/23/25 15:24 Pulse Rate 84 03/23/25 15:24 Respiratory Rate 18 03/23/25 15:24 Blood Pressure 142/97 H 03/23/25 15:24 Pulse Oximetry 97 03/23/25 15:24 Oxygen Delivery Method Room Air 03/23/25 15:24 Temperature 97.6 F 03/23/25 15:24 Pulse Rate 84 03/23/25 15:24 Respiratory Rate 18 03/23/25 15:24 Blood Pressure 142/97 H 03/23/25 15:24 Pulse Oximetry 97 03/23/25 15:24 Oxygen Delivery Method Room Air 03/23/25 15:24 Medical Decision Making Lab Data Labs: Lab Results 03/23/25 Range/Units 15:31 Group A Strep DNA NOT DETECTED (Not Detectd) Discharge Plan Discharge Clinical Impression: Tonsillith, Anterior cervical adenopathy Patient Disposition: Home, Self-Care Condition: Stable Instructions: Lymphadenopathy (ED) Additional Instructions: Take Tylenol and ibuprofen as needed for pain. If the swelling neck is not significantly better in 1 week, follow-up with your primary care provider for further evaluation and treatment. Activity Level: Activity as Tolerated Discharge Diet: Regular Prescriptions: No Action No Known Home Medications Follow Up/Referrals: Provider,Not a Local [Primary Care Provider, Family Practice] Stand Alone Forms: [employer] Info Instructions
[2025-03-23 16:04] LABS: Strep A DNA Probe* NOT DETECTED (Not Detectd)
== END 2025-03-23 16:14 | disposition home or self-care (01) ==
PROVIDERS: Emergency Provider Family Medicine
DX: J35.8 Other chronic diseases of tonsils and adenoids (principal); R59.1 Generalized enlarged lymph nodes
CPT/HCPCS: 87651; 99283